=== PATIENT | female | born 1955 | race Caucasian/White ===

== ENCOUNTER → 2017-11-24 | Outpatient (CLI) | payer OTHER ==
[~2017-11-24] MED LIST: CETI10TA99 PO; CLON0.5T3 PO; FLNIN NAE; HYDR5SYP11 PO; SERT1TAB68 PO; ZOLP10TA6 PO
== END | disposition home or self-care (01) ==
LOC: C.PAPS 08:00
PROVIDERS: ATTEND Family Medicine
DX: Z12.4 Encounter for screening for malignant neoplasm of cervix (principal); Z78.0 Asymptomatic menopausal state

== ENCOUNTER 2024-01-25 05:01 | Observation (INO) ==
--- NOTE | 2024-01-04 14:39 | PAT Medication Instructions ---
Medication Instructions Date of Service January 04, 2024 Home Medications biotin 5 mg tablet 5 mg PO DAILY calcium carbonate 600 mg calcium (1,500 mg) tablet (Calcium) 750 mg PO DAILY cholecalciferol (vitamin D3) 25 mcg (1,000 unit) tablet (Vitamin D3) 25 mcg PO DAILY cyanocobalamin (vitamin B-12) 500 mcg tablet 500 mcg PO DAILY meloxicam 7.5 mg tablet 7.5 mg PO BID temazepam 7.5 mg capsule 7.5 mg PO HS PRN ASK your surgeon for instructions meloxicam 7.5 mg tablet 7.5 mg PO BID STOP taking 2 weeks before surgery (or as soon as possible if surgery is within 2 weeks) biotin 5 mg tablet 5 mg PO DAILY DO NOT take the morning of surgery calcium carbonate 600 mg calcium (1,500 mg) tablet (Calcium) 750 mg PO DAILY cholecalciferol (vitamin D3) 25 mcg (1,000 unit) tablet (Vitamin D3) 25 mcg PO DAILY cyanocobalamin (vitamin B-12) 500 mcg tablet 500 mcg PO DAILY Take evening before surgery temazepam 7.5 mg capsule 7.5 mg PO HS PRN(if needed) Other Notes NOTHING TO EAT OR DRINK AFTER MIDNIGHT. If you have any questions please call us at [phone] or [phone] or [phone] or [phone]
--- NOTE | 2024-01-05 09:36 | Anesthesiology Consultation ---
Date of Service January 05, 2024 Assessment & Plan (1) Encounter for pre-operative examination: - Infectious disease screening: Per assessment on 01/05/24: No known infectious disease contacts or current infectious disease symptoms. No noted recent Covid positive test result. - Outpatient joint pathway: Per OR booking comments, plan for outpatient joint program. Patient seen at [facility] 01/05/24. Patient is an acceptable candidate to proceed as planned outpatient joint pathway pending perioperative course. Surgeon's office arranging post-op home management. - Patient acceptable risk for surgery pending surgeon-ordered PCP preop evaluation (Dr. Graham/[facility], appt 01/15). Chart Review Chart Review: Patient seen in Pre Admission Testing Teaching & Discussion Pre-Anesthesia Teaching/Discussion Notes: Instructed NPO after midnight before surgery,except medications with 15 cc of water. Medication instructions provided according to the [facility] guidelines. History Surgery Operation Date: 01/25/24 10:15 Proposed Procedures p OP: Right Total Hip Replacement - Anterior Approach - Jesse Russell MD Height/Weight Height: 5 ft 4 in Weight: 51.1 kg Allergies Allergy/AdvReac Type Severity Reaction Status Date / Time No Known Allergies Allergy Verified 01/04/24 13:16 Medications Home Medications Medication Instructions Recorded Confirmed Last Taken biotin 5 mg tablet 5 mg PO DAILY 01/04/24 01/04/24 Unknown calcium carbonate 600 mg calcium 750 mg PO DAILY 01/04/24 01/04/24 Unknown (1,500 mg) tablet (Calcium) cholecalciferol (vitamin D3) 25 25 mcg PO DAILY 01/04/24 01/04/24 Unknown mcg (1,000 unit) tablet (Vitamin D3) cyanocobalamin (vitamin B-12) 500 500 mcg PO DAILY 01/04/24 01/04/24 Unknown mcg tablet meloxicam 7.5 mg tablet 7.5 mg PO BID 01/04/24 01/04/24 Unknown temazepam 7.5 mg capsule 7.5 mg PO HS PRN Sleep 01/04/24 01/04/24 Unknown Past Medical History Medical History Anxiety Brain bleed SAH/subdural hematoma 08/2019 (after trauma, fell off ladder in garage)- had surgery 10/2019 to repair the bleed, "complete resolution" on subsequent 2019 CTS per [facility] PCP records Cancer Skin cancer s/p excision (shoulder) Cardiac murmur Noted - per patient, no significant valvular disease noted on 2006 exercise stress echo No murmur noted during physical exams at PAT visit 01/05/24 + [facility] PCP visit 11/2023 History of COVID-19 2020 Insomnia Kidney stones Hx Osteoporosis Previously on Alendronate (not currently) Uterine anomaly Exercise / Class Metabolic Activity II 4-5 Yardwork/Stairs/Walk up hill (one FS: No CP, no SOB) Past Surgical History Surgical History History of colonoscopy History of cystoscopy History of Mohs micrographic surgery for skin cancer History of tonsillectomy History of tooth extraction Hx of brain surgery 10/2019 (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 Physical Exam Vital Signs BP 103/69 P 58 TEMP 98.3 SP02 98%RA RESP 16 Physical Full cervical extension range of motion. Full TMJ range of motion. TMD > 3.5 finger breaths Mallampati Score 1 Dentition: upper partial, + crowns/caps Lungs: clear throughout to auscultation Cardiac: regular rate and rhythm, no murmurs noted Spine: normal Carotid arteries: negative bruit Extremities: no LE edema Lab Results Anesthesia Preop Results Results Anesthesia Widget: WBC 6.13 K/ul (4.8-10.8) 01/05/24 Hgb 12.7 g/dl (12.0-16.0) 01/05/24 Hct 37.8 % (37.0-47.0) 01/05/24 Plt 194 K/uL (130-400) 01/05/24 Na 138 mmol/L (136-145) 01/05/24 K 4.2 mmol/L (3.5-5.1) 01/05/24 Cl 105 mmol/L (98-107) 01/05/24 CO2 29 mmol/L (21-32) 01/05/24 BUN 25 mg/dl (6-23) H 01/05/24 Creat 0.70 mg/dl (0.6-1.2) 01/05/24 Glucose Level 87 mg/dl (70-99(Fasting)) 01/05/24 PT 10.6 Seconds (9.0-12.0) 01/05/24 PTT 31 Seconds (21-31) 01/05/24 INR 1.0 (0.9-1.1) 01/05/24 Urine Color Dark Yellow 01/05/24 Urine Appearance Clear (Clear) 01/05/24 Urine pH 6.5 (4.5-7.5) 01/05/24 Urine Specific [place] 1.016 (1.000-1.030) 01/05/24 Urine Protein Negative (Negative) 01/05/24 Urine Glucose (UA) Negative (Negative) 01/05/24 Urine Ketones Negative (Negative) 01/05/24 Urine Blood Negative (Negative) 01/05/24 Urine Nitrite Negative (Negative) 01/05/24 Urine Bilirubin Negative (Negative) 01/05/24 Urine Urobilinogen Negative (Negative) 01/05/24 Urine Leukocyte Esterase Negative (Negative) 01/05/24 Blood Type O Positive 01/05/24 Antibody Screen NEGATIVE 01/05/24 Testing Electrocardiogram Date: 01/05/24 SB with sinus arrhythmia at 54bpm. "Otherwise normal ECG" No significant change compared to 04/25/2013 per wood setter comparison. Chest X-Ray Date: 01/05/24 FINDINGS: Cardiomediastinal and hilar silhouettes are unchanged. Hyperinflation with diaphragmatic flattening and mild chronic interstitial coarsening. No pneumothorax, pleural effusion or overt pulmonary edema. Degenerative changes of the shoulders and spine. Chronic T11 compression deformity. Age-indeterminate T8 compression deformity without retropulsion is new from prior. IMPRESSION: Hyperinflation without acute process of the chest. Age-indeterminate T8 compression deformity, new from 06/08/2021. *T8 compression defomity noted on CT chest 08/2021 (scanned into chart)*
--- NOTE | 2024-01-24 07:57 | History & Physical Report ---
Date of Service January 24, 2024 Assessment & Plan (1) Degenerative joint disease of right hip: Plan: Right total hip replacement direct anterior approach most likely same-day surgery History of Present Illness Chief Complaint: Right hip pain Primary Care Provider: Muriel Pagan MD Patient is a 68-year-old female with greater than 1 year history of right hip and groin pain. The pain has been worse over the past 3 months and is associated with marked decrease in range of motion decreased standing and walking tolerance. She requires a cane for all ambulation. She has failed nonsteroidal anti-inflammatories and has had a recent MRI which shows severe femoral head and acetabular edema with subchondral insufficiency fracture. She is admitted for elective hip replacement Allergies Allergy/AdvReac Type Severity Reaction Status Date / Time No Known Allergies Allergy Verified 01/04/24 13:16 Home Medications Medication Instructions Recorded Confirmed Type biotin 5 mg tablet 5 mg PO DAILY 01/04/24 01/04/24 History calcium carbonate 600 mg calcium 750 mg PO DAILY 01/04/24 01/04/24 History (1,500 mg) tablet (Calcium) cholecalciferol (vitamin D3) 25 25 mcg PO DAILY 01/04/24 01/04/24 History mcg (1,000 unit) tablet (Vitamin D3) cyanocobalamin (vitamin B-12) 500 500 mcg PO DAILY 01/04/24 01/04/24 History mcg tablet meloxicam 7.5 mg tablet 7.5 mg PO BID 01/04/24 01/04/24 History temazepam 7.5 mg capsule 7.5 mg PO HS PRN Sleep 01/04/24 01/04/24 History Past Med/Surg History Medical History Brain bleed SAH/subdural hematoma 08/2019 (after trauma, fell off ladder in garage)- had surgery 10/2019 to repair the bleed, "complete resolution" on subsequent 2019 CTS per [facility] PCP records Cardiac murmur Noted 1970s- per patient, no significant valvular disease noted on 2006 exercise stress echo No murmur noted during physical exams at PAT visit 01/05/24 + [facility] PCP visit 11/2023 History of COVID-2020 Insomnia Kidney stones Hx Uterine anomaly Osteoporosis Previously on Alendronate (not currently) Cancer Skin cancer s/p excision (shoulder) Anxiety Surgical History History of cystoscopy History of colonoscopy Hx of hernia repair History of tooth extraction History of tonsillectomy Hx of brain surgery 10/2019 (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) History of Mohs micrographic surgery for skin cancer Social History Smoking Status: Never smoker Second Hand Exposure: No; Do You Dip or Chew Tobacco: No; Tobacco Cessation Education Requested by Patient: No Hx Alcohol Use: Yes Hx Substance Use: No Preferred Language: Danish Communication Ability: Effective Reading Specialist Required: No Beliefs That Will Affect Care: None Current Living Situation: Family Other Information That Helps Us Care for You: No Feels Safe at Home: Yes Safety Concerns: Feels Safe At This Time Assistive Devices: Denture - Upper and Glasses Review of Systems Review of Systems: Hip and groin pain Physical Exam Physical Exam: Weight 50 kg BMI 19 General: Small statured thin woman who appears her stated age HEENT: NCAT, EOMI, PERRLA. Neck: Negative JVD or bruits Heart: Regular rate and rhythm no murmurs appreciated at this time. Lungs: Breath sounds clear and present in all parrish Abdomen: Flat soft nontender bowel sounds are positive Extremities the right hip is actually 78 mm longer than the left passive range of motion is 5 to 85 degrees flexion -15 degrees internal rotation all which reproduces groin pain. There is significant pelvic obliquity with scoliosis which is fixed. Neurological and vascular: Intact Results & Data Results & Data Vital Signs (Past 12 Hours) Blood pressure 104/60 Pulse 55
[2024-01-25] MEDS: LR 500ML BOLUS, THEN 15ML/HR IV SCH (05:56)
[2024-01-25] MEDS: LR 60ML/HR IV SCH (05:56)
[2024-01-25] MEDS: dexAMETHasone**PF** 10 MG/ML VIAL IV SCH (06:00)
[2024-01-25] MEDS: FAMOTIDINE 20 MG TAB PO SCH (06:01)
[2024-01-25] MEDS: ACETAMINOPHEN 500 MG TAB PO SCH (06:01)
[2024-01-25] MEDS: GABAPENTIN 300 MG CAP PO SCH (06:01)
[2024-01-25] MEDS: METOCLOPRAMIDE HCL 10 MG TABLET PO SCH (06:01)
[2024-01-25] MEDS: traMADol HCL 50 MG TABLET PO SCH (06:01)
[2024-01-25] MEDS: CeleBREX 200 MG CAP PO SCH (06:01)
[2024-01-25] MEDS ORDERED: MEPIVACAINE HCL 1.5% 30 ML VIAL ONE (06:18)
--- NOTE | 2024-01-25 06:26 | History & Physical Bridge Note ---
Date of Service January 25, 2024 History & Physical Bridge Note I have examined the patient, reviewed the History & Physical and in the interval since the performance of the History & Physical I have noted the following changes of clinical significance: no changes noted
[2024-01-25] MEDS ORDERED: fentaNYL citrate PF 100 MCG/2 ML VIAL IV PRN (06:39)
[2024-01-25] MEDS ORDERED: KETOROLAC 30 MG/ML VIAL IV PRN (06:39)
[2024-01-25] MEDS ORDERED: PROMETHAZINE HCL 6.25 MG in SODIUM CHLORIDE 0.9% 50 ML IV PRN (06:39)
[2024-01-25] MEDS ORDERED: ePHEDrine sulfate 50 MG/ML AMP IV PRN (06:39)
[2024-01-25] MEDS ORDERED: ONDANSETRON INJ 2 MG/ML 2 ML VIAL IV PRN (06:39)
[2024-01-25] MEDS ORDERED: ATROPINE SULFATE 0.1 MG/ML 10ML SYR IV PRN (06:39)
[2024-01-25] MEDS ORDERED: MIDAZOLAM HCL 1 MG/ML 2ML VIAL ONE ×2 (06:40)
[2024-01-25] MEDS: TRANEXAMIC ACID 1,000 MG **IV Pre-op IV SCH (06:55)
[2024-01-25] MEDS ORDERED: PROPOFOL IV EMULSION 10 MG/ML 20 ML VIAL IV ONE (06:55)
[2024-01-25] MEDS ORDERED: ROPIVACAINE 0.5% 5 MG/ML 30 ML VIAL ONE (07:04)
[2024-01-25] MEDS: ceFAZolin 2000MG 2,000 MG/15 ML SYR IV SCH (07:11)
[2024-01-25] MEDS ORDERED: ePHEDrine sulfate 50 MG/5 ML SYR ONE (07:34)
[2024-01-25] MEDS: ROPIV 0.5% 246mg, Ketorolac 30mg, EPINEPHrine 0.5mg in NSS INFIL SCH (07:39)
[2024-01-25] MEDS ORDERED: PHENYLEPHRINE 100MCG/ML 10ML SYR IV ONE (08:05)
[2024-01-25] MEDS: TRANEXAMIC ACID 1,000 MG **IV Intra-op IV SCH (08:38)
--- NOTE | 2024-01-25 08:45 | Post Operative Brief Note ---
Immediate Post Op Note v1 Date of Surgery January 25, 2024 Pre & Post Diagnosis Operation Date: 01/25/24 07:15 Pre-Op Diagnosis: Right Hip Osteoarthritis Post-Op Diagnosis: Right Hip Osteoarthritis I identified the patient and participated in the time-out.: Yes Procedure Operation Date: 01/25/24 07:15 Actual Procedures p Right Total Hip Replacement - Anterior Approach(Right) - Jesse Russell MD Surgeon Jesse Russell MD Surgical Scrub Technician None Estimated Blood Loss 150 Findings Consistent with Post-Op Diagnosis
[2024-01-25] MEDS ORDERED: ACETAMINOPHEN 500 MG TAB PO PRN (08:46)
[2024-01-25] MEDS ORDERED: KETOROLAC 30 MG/ML VIAL ONE (08:55)
[2024-01-25] MEDS ORDERED: D5W AND 1/2NSS + 20MEQ KCL 20 MEQ/1,000 ML BAG IV SCH (09:00)
[2024-01-25] MEDS ORDERED: ASPIRIN 81 MG ECTAB PO SCH (09:00)
--- NOTE | 2024-01-25 09:10 | Fluoroscopy Report ---
FL hip RT 1V CLINICAL HISTORY: RIGHT ANTERIOR HIP COMPARISON STUDY: None. FLUOROSCOPY TIME: 19 seconds FLUOROSCOPY IMAGES: 1 Ka,r: 1.7 mGy FINDINGS: Status post right total hip arthroplasty. The hardware is intact. No fracture or dislocatio n. IMPRESSION: Fluoroscopic assistance as above. ACT 112: Negative or not required by law. Electronically signed by: Jovon Roger M.D. 01/25/2024 9:08 AM
--- NOTE | 2024-01-25 10:04 | Anesthesiology Progress Note ---
Date of Service January 25, 2024 Anesthesia Post Procedure Vital Signs Vital Signs: Temp Pulse Pulse Resp BP Pulse Ox O2 Del Method 01/25/24 09:50 36.1 C L 62 14 90/56 L 100 Room Air 01/25/24 09:40 68 18 100/52 L 100 Room Air 01/25/24 09:30 73 16 90/53 L 100 Room Air 01/25/24 09:20 70 16 72/41 L 100 Room Air 01/25/24 09:10 73 18 86/55 L 100 Room Air 01/25/24 09:00 91 H 18 91/63 L 99 Room Air 01/25/24 08:55 36.1 C L 92 H 16 112/59 L 99 Room Air 01/25/24 05:31 36.5 C 64 18 134/67 96 Room Air Pain Intensity Right Hip: Pain Intensity: 0 Transfer of Care Handoff Completed per policy Notes Mental Status: alert / awake / arousable Patient Amnestic to Procedure: Yes Nausea / Vomiting: adequately controlled Pain: adequately controlled Airway Patency, RR, SpO2: stable & adequate BP & HR: stable & adequate Hydration State: stable & adequate Neuraxial Anesthesia: was administered and sensory block is resolving Anesthetic Complications: no major complications apparent
[2024-01-25] MEDS: traMADol HCL 50 MG TABLET PO PRN (12:03)
--- OUTSIDE RECORDS SUMMARY | 2024-01-25 13:50 | External Medical Summary | Summary of Care ---
Author Name Unknown Organization [facility] Address [address] [facility] [place] [address] Phone [phone] Care Team Providers Care Electronic Publishing Specialist Name Role Phone Elisa Graham MD Primary Care Provider [phone] Reason for Visit * Reason Comments Physical-Exam Encounter Details Date Type Department Care Team (Late st Contact Info) Description 01/06/2024 1:00 PM EST Office Visit Family Practice [facility] [address] [facility] [place] [address] Aziza Tolliver, PA-C [address] [place] [address] [place] [id number] ICC Transmission Mechanic's Physical* Allergies No known active allergiesdocumented as of this encounter (statuses as of 01/06/2024) Medications Medication Sig Dispensed Refills Start Date End Date Status Calcium Carb-Cholecalcife rol 600-800 MG-UNIT Oral Tablet Chewable Take 1 Tab by mouth daily. 0 Active Cyanocobalamin (VITAMIN B-12) 1000 MCG Tablet Take 1 Tablet by mouth in the morning. 0 Active Acetaminophen 500 MG Capsule 1 Capsule. 0 Active Melatonin ER 1 MG Oral Tablet Extended ReleaseIndication s:Insomnia, unspecified type daily1 tab at bedtime daily, if not improved may increase upto 5 mg daily 1 Tablet 0 01/02/2023 Active Triamcinolone Acetonide 55 MCG/ACT Nasal Aerosol (Nasacort Allergy 24HR)Indications: Other insomnia,Other chronic sinusitis,Primary snoring Administer 2 Sprays into each nostril at bedtime. 17 mL 5 04/13/2023 Active Additional Information Patient taking differently:2 [place] Each NostrilPRN, Rhinitis, Reported on 10/17/2023 Biotin 3 MG Oral Tablet Take by mouth. Pt unsure of dosage 0 Active Vitamin D-3 25 MCG (1000 UT) Oral Capsule Unsure dose--dec to 1 every other day from 10/17/2023 1 Capsule 0 10/17/2023 Active Meloxicam 7.5 MG Oral TabletIndications :Severe right groin pain,Arthritis of right hip Take 1 Tablet by mouth in the morning. With food, if not better take 2/day. 60 Tablet 0 12/08/2023 Active Temazepam 7.5 MG Oral Capsule (Restoril)Indicat ions:Other insomnia Take 1 Capsule by mouth at bedtime. 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 Age-related osteoporosis with current pathologic al fracture 09/17/2021 Lung nodule < 6cm on CT 09/17/2021 History of fall from ladder 09/05/2019 History of subarachnoid hemorrhage 09/05/2019 History of subdural hematoma 09/05/2019 Conductive hearing loss 09/05/2019 Hx of actinic keratosis 02/07/2019 Hx of nonmelanoma skin cancer 04/15/2011 Overview: BCC L anterior thigh 05/2015, R shoulder 05/213, recurrent from 2002, R cheek 2002 R thigh Insomnia 11/10/2009 Overview: ICD-10 update of inactive term Benign neoplasm of colon 06/22/2007 Overview: adenomatous tissue-repeat colonoscopy in 5 years documented as of this encounter (statuses as of 01/06/2024) Resolved Problems Problem Noted Date Diagnosed Date Resolved Date Compression fracture of T8 vertebra 09/17/2021 06/21/2022 Traumatic epidural hematoma 09/05/2019 03/17/2021 Hemotympanum 09/05/2019 03/17/2021 Multiple fractures of ribs, left side, init for clos fx 09/05/2019 03/17/2021 Adjustment disorder with depressed mood 11/10/2009 04/13/2023 JO-ANN (generalized anxiety disorder) 11/10/2009 04/13/2023 ADVANCE DIRECTIVE INFORMATION 11/23/2006 01/02/2023 Overview: Information given to patient. Hemorrhage of rectum and anus 05/07/2003 11/10/2009 Mitral valve disorder 06/29/19982022 documented as of this encounter (statuses as of 01/06/2024) Immunizations Name Administration Dates Next Due COVID-19 mRNA, LNP-s, No Pre serve, 2-Dose Series ([employer]) 09/10/2021,08/12/2021 DT - Diptheria/Tetanus (PEDS) 03/31/2003 HEP A - Hepatitis A (Adult > 18 yrs) 04/05/1998, 08/03/1997,08/18/1996 Hepatitis B, 20+ yrs 08/11/1990 Influenza, Whole Virus 09/20/2003,2001,10/07/2001,11/18,07/30/1995 MMR - Measles/Mumps/Rubella Vaccine 01/24/1985 Meningococcal Polysaccharide Vaccine ([employer]e) 09/20/2003,04/05/1998,12/28/1992 OPV - Polio Virus Vaccine (Oral) 12/28/1989,0310/1984 PPD 04/05/1998 Pneumococcal Conjugate Vacci ne, 20-valent ([id number]) 01/02/2023 Pneumococcal Polysaccharide PPV23 (Pneumovax) 12/15/2021 Rabies Vaccine (Rabavert) 10/27/2010,10/23/2010 Seasonal Influenza Virus Vac cine, Unspecified Formulation 08/12/2021,07/29/2020,10/06/2015,07/30 Seasonal Influenza, PF, 6 M & above, IM , (FluLaval or Fluzone) 07/06/2022,08/12/2021,07/29/2020 Seasonal Influenza, Quadriva lent, No Preserve, IM 08/09/2023 Seasonal Influenza, Split, I IV3, With Preserve, Inj 07/18/2019,08/16/2018,08/10/2017,10/06,07/17/2014,07/17/2013,07/25/2012 ,08/30/2009,08/30/1999 TD - Tetanus/Diptheria (ADULT) 10/23/2010 TDAP (age 10 and older)(Boostrix) 09/02/2019,10/2011 Typhoid Vaccine Oral (Vivotif) 09/20/2003,1997,07/30/1995 Yellow Fever Vaccine 10/30/1995,03/30/1989 Zoster Vaccine Recombinant (Shingrix) 01/01/2021 ,08/17/2020 documented as of this encounter Social History Tobacco Use Types Packs/Day Years Used Date Smoking Tobacco: Never Smokeless Tobacco: Never Tobacco Cessation:Counseling Given: Not Answered Alcohol Use Standard Drinks/Week Comments Yes 0 (1 standard drink = 0.6 oz pur e alcohol) 1-2 drinks / week PHQ-2 Answer Date Recorded PHQ Adult Total Score 0 10/17/2023 Hunger Vital Sign Answer Date Recorded Within the past 12 months, y ou worried that your food would run out before you got the money to buy more. Never true 06/21/20 22 Within the past 12 months, t he food you bought just didn't last and you didn't have money to get more. Never true 06/21/2022 Sex and Gender Information Value Date Recorded Sex Assigned at Female 03/24/2023 10:04 AM EDT Gender Identity Female 03/24/2023 10:04 AM EDT Sexual Orientation Not on file Job Start Date Occupation Industry Not on file Not on file Not on file documented as of this encounter Last Filed Vital Signs Vital Sign Reading Time Taken Comments Blood Pressure 102/64 01/06/2024 1:06 PM EST Pulse 72 01/06/2024 1:06 PM EST Temperature 36.4 C (97.6 F) 01/06/2024 1:06 PM ES T Respiratory Rate 16 01/06/2024 1:06 PM EST Oxygen Saturation - - Inhaled Oxygen Concentration - - Weight 51.4 kg (113 lb 6 oz) 01/06/2024 1:06 PM EST Height 162.6 cm (5' 4") 01/06/2024 1:06 PM EST Body Mass Index 19.46 01/06/2024 1:06 PM EST documented in this encounter Functional Status Functional Status Response Date of Assess ment Are you deaf or do you have serious difficulty h earing? No 09/02/2019 Are you blind or do you have serious difficulty seeing, even when wearing glasses? No 09/02/2019 Do you have serious difficul ty walking or climbing stairs? (5 years old or older) No 09/02/2019 Do you have difficulty dress ing or bathing? (5 years old or older) No 09/02/2019 Because of a physical, menta l, or emotional condition, do you have difficulty doing errands alone such as visiting a doctor s office or shopping? (15 years old or older) No 09/02/20 19 Cognitive Status Response Date of Assessm ent Because of a physical, menta l, or emotional condition, do you have serious difficulty concentrating, remembering, or making decisions? (5 years old or older) No 09/02/2019 documented as of this encounter Progress Notes * Aziza Tolliver PA-C - 01/06/2024 1:13 PM EST Nursing Notes: Conchis Bryant LPN 01/06/24 1311 Sign at exiting of workspace CDL Pt here today for CDL PE. Pt has no issues at this time. Review of patient's allergies indicates: No Known Allergies Current Outpatient Medications Medication Sig Dispense Refill Meloxicam 7.5 MG Oral Tablet Take 1 Tablet by mouth in the morning. With food, if not better take 2/day. 60 Tablet 0 Calcium Carb-Cholecalciferol 600-800 MG-UNIT Oral Tablet Chewable Take 1 Tab by mouth daily. Cyanocobalamin (VITAMIN B-12) 1000 MCG Tablet Take 1 Tablet by mouth in the morning. Acetaminophen 500 MG Capsule 1 Capsule. Melatonin ER 1 MG Oral Tablet Extended Release daily1 tab at bedtime daily, if not improved may increase upto 5 mg daily 1 Tablet 0 Triamcinolone Acetonide 55 MCG/ACT Nasal Aerosol (Nasacort Allergy 24HR) Administer 2 Sprays into each nostril at bedtime. (Patient taking differently: Administer 2 Sprays into each nostril as neededfor Rhinitis.) 17 mL 5 Biotin 3 MG Oral Tablet Take by mouth. Pt unsure of dosage Vitamin D-3 25 MCG (1000 UT) Oral Capsule Unsure dose--dec to 1 every other day from 10/17/2023 1 Capsule 0 Temazepam 7.5 MG Oral Capsule (Restoril) Take 1 Capsule by mouth at bedtime. 30 Capsule 0 No current facility-administered medications for this visit. Past Medical History: Diagnosis Date Abnormal Papanicolaou smear of cervix and cervical HPV 10/30/1992 Abnormal PAP Arthritis Benign neoplasm of colon 06/22/2007 adenomatous tissue-repeat colonoscopy in 5 years Benign neoplasm of colon 03/06/2013 COLONOSCOPY FLEXIBLE PROXIMAL DIAGNOSTIC performed by Alka Roldan MD at [facility], hyperplastic polyps repeat colonoscopy in 5 years Calculus of kidney Renal Calculus Mitral valve disorder Mitral Valve Prolapse, no SBE Multiple fractures of ribs, left side, init for clos fx 09/05/2019 Pain in limb SDH (subdural hematoma) ([facility]) 2019 Social History Socioeconomic History Marital status: Spouse name: Maddy Number of children: 2 Years of education: Not on file Highest education level: Not on file Occupational History Occupation: [employer] Comment: HRI Occupation: [employer] Employer: [employer] Tobacco Use Smoking status: Never Smokeless tobacco: Never Vaping Use Vaping Use: Never used Substance and Sexual Activity Alcohol use: Yes Comment: 1-2 drinks / week Drug use: No Sexual activity: Yes Partners: Male control/protection: Surgical Comment: vasectomy Other Topics Concern Service Not Asked Blood Transfusions Not Asked Caffeine Concern Not Asked Occupational Exposure Not Asked Hobby Hazards Not Asked Sleep Concern Not Asked Stress Concern Not Asked Weight Concern Not Asked Special Diet Yes Comment: ca discussed Back Care Not Asked Exercise Yes Comment: walks occ Bike Helmet Not Asked Seat Belt Not Asked Self-Exams No Comment: breast Social History 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 rate 16, height 1.626 m (5' 4"), weight 51.4 kg (113 lb 6 oz), last menstrual period 06/09/2005. ICC Physical Examination [place] [employer] Date of exam: January 06, 2024 Certification: Recertification Transmission Mechanic's Name: Caroline Dwyer [address]: [address] [place] [id number] SSN: [id number] Date of : 1955 Age: [age] year old Sex: female Phone: Home/Work: There are no phone numbers on file. Transmission Mechanic License No: [id number] License class-A,B,C,D, other: State of issue: [place] Health History: Any illness or injury in the last 5 years: no Head/Brain injuries, disorders or illnesses: no Seizures, epilepsy: no If yes- Medication: na Eye disorders or impaired vision (except corrective lenses): no Ear disorders, loss of hearing or balance: no Heart disease or heart attack; other cardiovascular condition: no If yes- Medication: na Heart surgery (valve replacement/bypass, angioplasty, pacemaker): no High blood pressure: no If yes-Medication: laya Shortness of breath: no Lung disease, emphysema, asthma, chronic bronchitis: no Kidney disease, dialysis: no Liver disease: no Digestive problems: no Diabetes or elevated blood sugar controlled by: no Diet/pills/insulin: na Nervous or psychiatric disorders, e.g., servere depression: no If yes- Medication: na Loss of,or altered consciousness: no Fainting, dizziness: no Sleep disorders, pauses in breathing while asleep, daytime sleepiness, loud snoring: no Stroke or paralysis: no Missing or impaired hand, arm, foot, leg, finger, toe: no Spinal injury or disease: no Chronic low back pain: no Regular, frequent alcohol use: no Narcotic or habit forming drug use: no For any YES answer, indicate onset date, diagnosis, treating physicians name and address, and any curret limitations: List all medications (including over the counter medications) used regularly or recently. na General appearance and development: Vision: acuity, color vision, field of vision as noted above Evidence of disease or injury: Right: no Right: 20/30 Left: no Left: 20/30 Both: no Both: 20/30 Corrected: Horizontal Field Of Vision: Right eye: 20/30 Right eye: 90 Left eye: 20/30 Left eye: 90 Applicant can recognize and distinguish amount traffic control signals and devices showing standardred, green and ziggy: yes Applicant meets visual acuity requirement only when wearing: Corrective lenses: yes Monocular Vision: no Hearing: Audiometric screen as noted above. Right: Normal Left: Normal Evidence of disease or injury: no BP 102/64 | Pulse 72 | Temp 36.4 C (97.6 F) (Tympanic) | Resp 16 | Ht 1.626 m (5' 4") | Wt 51.4kg (113 lb 6 oz) | LMP 06/09/2005 | BMI 19.46 kg/m | BSA 1.52 m General appearance: normal Eyes: Normal Ears: Normal Mouth/Throat: Normal Thorax: Heart: Normal If organic disease is present, is it fully compensated? YES Blood Pressure: 102/64 Pulse: 72 Lungs: Normal Abdomen: Scars: no Abnormal masses: no Tenderness: no Hernia: no Is truss worn? no Vascular disease: no Gastrointestinal: Ulceration or other diseases: no Genito-urinary: Scars: no Urethral discharge: no Reflexes: Rhomberg: Normal Pupillary: Normal Light: Right: Normal Left: Normal Accomodation: Right: Normal Left: Normal Knee Jerks: Right: normal Left: normal Remarks: Extremities: Upper: Normal Lower: Normal Spine: Normal Laboratory and other special findings: Urine: Specific Paradise: 1.020 Albumin: Normal Sugar: Normal Other laboratory data: Serology: Radiologic data: Electrocardiograph: Controlled substances testing: Controlled substances test NOT performed General comments: normal PE Meets standards in 49 CFR 391.41; qualifies for 2 year certificate: YES Does not meet standards: N/A Meets standards, but periodic monitoring required due to: N/A Transmission Mechanic qualified only for: 3, 6, l year, other: months allowed/n/a: na Temporarily disqualified due to (condition or medication): N/A Return to phlebotomist medical lab assistant's office for follow up on: not applicable Wearing corrective lenses: yes Wearing hearing aid: no Accompanied by a = waiver/exemption. Transmission Mechanic must present exemption at time of certification. N/A Skill Performance Evaluation (SPE) Certificate. N/A Driving within an exempt intracity zone (See 49 CFR 391.62): N/A Qualified by operation of 49 CFR 391.64: N/A Signature of medical provider Name of phlebotomist medical lab assistant: Aziza Tolliver PA-C Address of phlebotomist medical lab assistant: [address] [place] [address] greige goods examiner's Certificate to be completed only if marine engine driver is found qualified. documented in this encounter Nursing Notes * Conchis Bryant LPN - 01/06/2024 1:02 PM EST CDL documented in this encounter Plan of Treatment Upcoming Encounters Date Type Department Care Team (Late st Contact Info) Description 01/16/2024 11:20 AM EDT Office Visit General Internal Medicine [facility] [address] [facility] [place] [address] Elisa Graham MD [address] [place] [address] [place] [address] 01/22/2024 1:30 PM EDT Office Visit Dermatology [facility] [address] [facility] [place] [address] Arias Dee MD [address] [place] [address], [place] [address] 04/11/2024 9:20 AM EDT Office Visit General Internal Medicine [facility] [address] [facility] [place] [address] Elisa Graham MD [address] [place] [address], [place] [address] Scheduled Procedures Name Priority Associated Diagnoses Date/Ti me COLONOSCOPY FLEXIBLE PROXIMA L DIAGNOSTIC Recall Screening for colon cancer Health Maintenance Due Date Last Done Comments Hepatitis B (2 of 3 - 19+ 3-dose series) 09/08/1990 08/11/1990 Cologuard 2001 Sigmoidoscopy 05/07/2008 05/07/2003 Fecal Occult Blood Test 08/20/2021 08/20/2020, 04/12 COVID-19 Vaccine ( season) 2023 09/10/2021, 08/12/2021 DXA Scan 08/26/2023 08/26/2021 Depression Screening 10/17/2024 10/17/2023 Mammogram 11/06/2024 11/06/2023, 02/2023, 11/03/2022, Additional history exists Lipid Panel 08/10/2026 08/10/2021, 08/30, 08/11/2020, Additional history exists DTaP,Tdap,and Td Vaccines (5 - Td or Tdap) 09/02/2029 09/02/2019, 10/30/2011, 10/23/2010, Additional history exists Colonoscopy 10/02/2033 10/02/2023, 01/2023, 07/06/2018, Additional history exists Colorectal Cancer Screening 10/02/2033 MENINGOCOCCAL (MENACTRA/MENVEO) Aged Out 09/20/2003, 04/05/1998, 12/28/1992 No longer eligible based on patient's age to complete this topic VITAMIN D LEVEL ONCE IN A LIFETIME-USE SMARTSET# [id number] Completed 08/21/2014 Pap Smear Discontinued 09/15/2020, 07/31, 08/23/2011, Additional history exists Zoster Vaccines Completed 01/01/2021, 08/17/2020 Pneumococcal Vaccine: 65+ Years Completed 01/02/2023, 12/15/2021 Influenza Vaccine (FLU shot) Completed 08/09/2023, 07/06/2022, 08/12/2021, Additional history exists COLONOSCOPY-EVERY 5 YRS AGES 18-100 Discontinued 10/02/2023, 10/02/2023, 07/06/2018, Additional history exists GARDASIL-HPV IMMUNIZATION SERIES Aged Out No longer eligible based on patient's age to complete this topic documented as of this encounter Medical Devices Implanted Type Area Business Objects Consultant Device Identifier Shelf Expiration Date Model / Serial / Lot [employer], Embosphere, Microspheres, [id number] Implanted:Qty: 1 on 11/05/2019 by Israel Alvares [place] [facility] [place]: [employer] 11/29/2021 [id number] / [id number] / [id number] Plug Mesh Small Hernia - [id number] Implanted:Qty: 1 on 01/31/2023 by Jabari Salazar MD at [facility] Right: Groin CR BARD : DAVOL 09/26/2023 [id number] / / [id number] documented as of this encounter Procedures Procedure Name Priority Date/Time Associated Diagnosis Comments URINALYSIS, POINT OF CARE (ENTER/EDIT) Routine 01/06/2024 ICC Transmission Mechanic's Physical VISUAL ACUITY SCREEN, NURSE/TECH Routine 01/06/2024 ICC Transmission Mechanic's Physical HEARING SCREEN Routine 01/06/2024 ICC Transmission Mechanic's Physical documented in this encounter Results * VISUAL ACUITY SCREEN, NURSE/TECH (01/06/2024) 01/06/2024 Narrative Conchis Bryant LPN - 01/06/2024 1:49 PM EST 20/30 right left and both with glasses Passed color test Aziza Tolliver PA-C MEDICINE * HEARING SCREEN (01/06/2024) 01/06/2024 Narrative Conchis Bryant LPN - 01/06/2024 1:49 PM EST No response at 500 1000 and 2000 is at 25 dbls Aziza Tolliver PA-C MEDICINE * URINALYSIS, POINT OF CARE (ENTER/EDIT) (01/06/2024) Color, Urine Yellow Yellow or Light Yellow Clarity, Urine Clear Clear Glucose, Urine Negative Negative mg/dL Bilirubin, Urine Negative Negative Ketone, Urine Negative Negative mg/dL Specific [place], Urine 1.020 1.003 - 1.030 Blood, Urine Negative Negative pH, Urine 5.0 5.0 - 7.5 units Protein, Urine Negative Negative mg/dL Urobilinogen, Urine 0.2 0.2 - 1.0 mg/dL Nitrite, Urine Negative Negative Esterase, Urine Negative Negative Urine 01/06/2024 Aziza Tolliver PA-C LAB POINT OF CARE TEST ENTER/EDIT ORDERABLES documented in this encounter Visit Diagnoses Diagnosis ICC Transmission Mechanic's Physical- Primary Unspecified general medical examination documented in this encounter Advance Directives Latest Code Status on File Code Status Date Activated Date Inactivated Comments Full Code 01/31/2023 9:56 AM 01/31/2023 4:43 PM This or pa reflects the patients wishes and were consensually agreed upon. Question Answer Comments Discussion of Advance Directives occurred with: Patient Code Status History Code Status Date Activated Date Inactivated Comments Full Code 11/05/2019 2:15 PM 11/05/2019 10:00 PM This o rder reflects the patients wishes and were consensually agreed upon. Question Answer Comments Discussion of Advance Directives occurred with: Not Discussed Full Code 09/02/2019 5:08 PM 09/05/2019 9:04 PM This order reflects the patients wishes and were consensually agreed upon. Care Teams Electronic Publishing Specialist Relationship Specialty Start Date End Date Elisa Graham MD [address] [place] [address] PCP - General Internal Medicine 01/06/23 documented as of this encounter
--- OUTSIDE RECORDS SUMMARY | 2024-01-25 13:50 | External Medical Summary | Summary of Care ---
Author Name Unknown Organization [facility] Address [address] [facility] [place] [address] Phone [phone] Care Team Providers Care Card Writer Hand Name Role Phone Elisa Graham MD Primary Care Provider [phone] Encounter Details Date Type Department Care Team (Late st Contact Info) Description 01/05/2024 Result Scan Unspecified Department <No scans attached> Allergies No known active allergiesdocumented as of this encounter (statuses as of 01/09/2024) Medications Medication Sig Dispensed Refills Start Date End Date Status Calcium Carb-Cholecalcifero l 600-800 MG-UNIT Oral Tablet Chewable Take 1 Tab by mouth daily. 0 Active Cyanocobalamin (VITAMIN B-12) 1000 MCG Tablet Take 1 Tablet by mouth in the morning. 0 Active Acetaminophen 500 MG Capsule 1 Capsule. 0 Active Melatonin ER 1 MG Oral Tablet Extended ReleaseIndications: Insomnia, unspecified type daily1 tab at bedtime daily, if not improved may increase upto 5 mg daily 1 Tablet 0 01/02/2023 Active Triamcinolone Acetonide 55 MCG/ACT Nasal Aerosol (Nasacort Allergy 24HR)Indications:Ot her insomnia,Other chronic sinusitis,Primary snoring Administer 2 Sprays into each nostril at bedtime. 17 mL 5 04/13/2023 Active Additional Information Patient taking differently:2 [place] Each NostrilPRN, Rhinitis, Reported on 10/17/2023 Biotin 3 MG Oral Tablet Take by mouth. Pt unsure of dosage 0 Active Vitamin D-3 25 MCG (1000 UT) Oral Capsule Unsure dose--dec to 1 every other day from 10/17/2023 1 Capsule 0 10/17/2023 Active Meloxicam 7.5 MG Oral TabletIndications:S evere right groin pain,Arthritis of right hip Take 1 Tablet by mouth in the morning. With food, if not better take 2/day. 60 Tablet 0 12/08/2023 Active Temazepam 7.5 MG Oral Capsule (Restoril)Indicatio ns:Other insomnia Take 1 Capsule by mouth at bedtime. 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 Overview: adenomatous tissue-repeat colonoscopy in 5 years documented as of this encounter (statuses as of 01/09/2024) Resolved Problems Problem Noted Date Diagnosed Date [...] as of this encounter (statuses as of 01/09/2024) Immunizations Name Administration Dates Next Due COVID-19 mRNA, LNP-s, No Pre serve, 2-Dose Series (Porch) 09/10/2021,08/12/2021 HEP A - Hepatitis A (Adult > 18 yrs) 04/05/1998, 08/03/1997,08/18/1996 Hepatitis B, 20+ yrs 08/11/1990 Influenza, Whole Virus 09/20/2003,2001,10/07/2001,11/18,07/30/1995 MMR - Measles/Mumps/Rubella Vaccine 01/24/1985 Meningococcal Polysaccharide Vaccine (Menommune) 09/20/2003,04/05/1998,12/28/1992 OPV - Polio Virus Vaccine (Oral) 12/28/1989,10/1984 PPD 04/05/1998 Pneumococcal Conjugate Vacci ne, 20-valent ([id number]) 01/02/2023 Pneumococcal Polysaccharide PPV23 (Pneumovax) 12/15/2021 Rabies Vaccine (Rabavert) 10/27/2010,10/23/2010 Seasonal Influenza Virus Vac cine, Unspecified Formulation 08/12/2021,07/29/2020,10/06/2015,07/30 Seasonal Influenza, PF, 6 M & above, IM , (FluLaval or Fluzone) 07/06/2022,08/12/2021,07/29/2020 Seasonal Influenza, Quadriva lent, No Preserve, IM 08/09/2023 Seasonal Influenza, Split, I IV3, With Preserve, Inj 07/18/2019,08/16/2018,08/10/2017,10/06,07/17/2014,07/17/2013,07/25/2012 ,08/30/2009 TD - Tetanus/Diptheria (ADULT) 10/23/2010 TDAP (age 10 and older)(Boostrix) 09/02/2019,10/2011 Typhoid Vaccine Oral (Vivotif) 09/20/2003,1997,07/30/1995 Yellow Fever Vaccine 10/30/1995,03/30/1989 Zoster Vaccine Recombinant (Shingrix) 01/01/2021 ,08/17/2020 documented as of this encounter Social History Tobacco Use Types Packs/Day Years Used Date Smoking Tobacco: Never Smokeless Tobacco: Never Alcohol Use Standard Drinks/Week Comments Yes 0 (1 standard drink = 0.6 oz pur e alcohol) 1-2 drinks / week PHQ-2 Answer Date Recorded PHQ Adult Total Score 0 10/17/2023 Hunger Vital Sign Answer Date Recorded Within the past 12 months, y ou worried that your food would run out before you got the money to buy more. Never true 06/21/20 Within the past 12 months, t he [...] on file documented as of this encounter Functional Status Functional Status Response [...] (15 years old or older) No 09/02/20 Cognitive Status Response Date of Assessm ent Because of a physical, menta l, or emotional condition, do you have serious difficulty concentrating, remembering, or making decisions? (5 years old or older) No 09/02/2019 documented as of this encounter Plan of Treatment Upcoming Encounters Date Type Department Care Team (Late st Contact Info) Description 01/16/2024 11:20 AM EDT Office Visit General Internal Medicine [facility] [address] [place] [address] Elisa Graham MD [address] [place] [address] 01/22/2024 1:30 PM EDT Office Visit Dermatology [facility] [address] [facility] [place] [address] Arias Dee MD [address] [place] [address] 04/11/2024 9:20 AM EDT Office Visit General Internal Medicine [facility] [address] [facility] [place] [address] Elisa Graham MD [address] [place] [address] Scheduled Procedures Name Priority Associated Diagnoses Date/Ti [...] D LEVEL ONCE IN A LIFETIME-USE SMARTSET# 53325 Completed 08/21/2014 Pap Smear Discontinued 09/15/2020, 07/31, [...] this encounter Medical Devices Implanted Type Area Acute Care Clinical Nurse Specialist Device Identifier Shelf Expiration Date Model / Serial / Lot [employer], Embosphere, Microspheres, 300-500 Implanted:Qty: 1 on 11/05/2019 by Israel Alvares [place] [facility] [place] Head [employer] 11/29/2021 [id number] / [id number] / [id number] Plug Mesh Small Hernia - [id number] Implanted:Qty: 1 on 01/31/2023 by Jabari Salazar MD at OR [facility] Right: Groin CR BARD : DAVOL 09/26/2023 [id number] / / [id number] documented as of this encounter Procedures Procedure Name Priority Date/Time Associated Diagnosis Comments EKG SCANNED RESULT 01/05/2024 RADIOLOGY SCANNED RESULT 01/05/2024 documented in this encounter Results * RADIOLOGY SCANNED RESULT (01/05/2024) 01/05/2024 No Physician Data Unknown DIAGNOSTIC RAD IOLOGY SERVICES * EKG SCANNED RESULT (01/05/2024) 01/05/2024 No Physician Data Unknown EKG documented in this encounter Advance Directives Latest [...] and were consensually agreed upon. Care Teams Card Writer Hand Relationship Specialty Start Date End Date Elisa Graham MD [address] [place] [address] PCP - General Internal Medicine 01/06/23 documented as of this encounter
--- OUTSIDE RECORDS SUMMARY | 2024-01-25 13:50 | External Medical Summary | Summary of Care ---
Author Name Unknown Organization [facility] Address [address] [facility] [place] [address] Phone [phone] Care Team Providers Care Stapler Hand Name Role Phone Elisa Graham MD Primary Care Provider [phone] Reason for Visit * Reason Comments Physical-Exam Encounter Details Date Type Department Care Team (Late st Contact Info) Description 01/06/2024 1:00 PM EST Office Visit Family Practice [facility] [address] [facility] [place] [address] Aziza Tolliver, PA-C [address] [place] [address] [place] [address] 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's Physical* Allergies No known active allergiesdocumented as [...] 04/13/2023 Active Additional Information Patient taking differently:2 [place] Each NostrilPRN, Rhinitis, Reported on 10/17/2023 Biotin [...] mRNA, LNP-s, No Pre serve, 2-Dose Series (2080 Media) 09/10/2021,08/12/2021 DT - Diptheria/Tetanus (PEDS) 03/31/2003 HEP A - Hepatitis A (Adult > 18 yrs) 04/05/1998, 08/03/1997,08/18/1996 Hepatitis B, 20+ yrs 08/11/1990 Influenza, Whole Virus 09/20/2003,2001,10/07/2001,11/18,07/30/1995 MMR - Measles/Mumps/Rubella Vaccine 01/24/1985 Meningococcal Polysaccharide Vaccine (Menommune) 09/20/2003,04/05/1998,12/28/1992 OPV - Polio Virus Vaccine (Oral) 12/28/1989,0310/1984 PPD 04/05/1998 Pneumococcal Conjugate Vacci ne, 20-valent (Seehqys24) 01/02/2023 Pneumococcal Polysaccharide PPV23 (Pneumovax) 12/15/2021 Rabies [...] performed by Alka Roldan MD at [facility], hyperplastic polyps repeat colonoscopy in 5 years Calculus of kidney Renal Calculus Mitral valve disorder Mitral Valve Prolapse, no SBE Multiple fractures of ribs, left side, init for clos fx 09/05/2019 Pain in limb SDH (subdural hematoma) ([facility]) 2019 Social History Socioeconomic History Marital status: Spouse name: Maddy Number of children: 2 Years of education: Not on file Highest education level: Not on file Occupational History Occupation: [employer] Comment: [employer] Occupation: [employer] Employer: [place] [employer] 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 License No: [id number] License class-A,B,C,D, other: State of issue: [place] [...] Laboratory and other special findings: Urine: Specific [place]: 1.020 Albumin: Normal Sugar: Normal Other laboratory data: Serology: Radiologic data: Electrocardiograph: Controlled substances testing: Controlled substances test NOT performed General comments: normal PE Meets standards in 49 CFR 391.41; qualifies for 2 year certificate: YES Does not meet standards: N/A Meets standards, but periodic monitoring required due to: N/A 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 qualified only for: 3, 6, l year, other: months allowed/n/a: na Temporarily disqualified due to (condition or medication): N/A Return to quality engineer medical device's office for follow up on: not applicable Wearing corrective lenses: yes Wearing hearing aid: no Accompanied by a = waiver/exemption. 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 must present exemption at time of certification. N/A Skill Performance Evaluation (SPE) Certificate. N/A Driving within an exempt intracity zone (See 49 CFR 391.62): N/A Qualified by operation of 49 CFR 391.64: N/A Signature of medical provider Name of quality engineer medical device: Aziza Tolliver PA-C Address of quality engineer medical device: [address] [place] [address] driver's license examiner's Certificate to be completed only if pick up and delivery driver is found qualified. documented in this encounter Nursing Notes * Conchis Bryant LPN - 01/06/2024 1:02 PM EST CDL documented in this encounter Plan of Treatment Upcoming Encounters Date Type Department Care Team (Late st Contact Info) Description 01/16/2024 11:20 AM EDT Office Visit General Internal Medicine [facility] [address] [facility] [place] [address] Elisa Graham MD [address] [place] [address] [place] [address] 01/22/2024 1:30 PM EDT Office Visit Dermatology [facility] [address] [facility] [place] [address] Arias Dee MD [address] [place] [address], [place] [address] 04/11/2024 9:20 AM EDT Office Visit General Internal Medicine [facility] [address] [facility] [place] [address] Elisa Graham MD [address] [place] [address], [place] [address] Scheduled Procedures Name Priority Associated Diagnoses Date/Ti [...] D LEVEL ONCE IN A LIFETIME-USE SMARTSET# 60198 Completed 08/21/2014 Pap Smear Discontinued 09/15/2020, 07/31, [...] this encounter Medical Devices Implanted Type Area Brick Catcher Device Identifier Shelf Expiration Date Model / Serial / Lot [employer], Embosphere, Microspheres, 300-500 Implanted:Qty: 1 on 11/05/2019 by Israel Alvares MD at [place] [facility] [place] N/A: Head [employer] 11/29/2021 [id number] / [id number] / [id number] Plug Mesh Small Hernia - [id number] Implanted:Qty: 1 on 01/31/2023 by Jabari Salazar MD at OR [facility] Right: Groin CR BARD : DAVOL 09/26/2023 [id number] / / [id number] documented as of this encounter Procedures Procedure Name Priority Date/Time Associated Diagnosis Comments URINALYSIS, POINT OF CARE (ENTER/EDIT) Routine 01/06/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's Physical VISUAL ACUITY SCREEN, NURSE/TECH Routine 01/06/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's Physical HEARING SCREEN Routine 01/06/[address] ICC 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's Physical documented in this encounter Results * [...] Negative Ketone, Urine Negative Negative mg/dL Specific [place], Urine 1.020 1.003 - 1.030 Blood, Urine Negative Negative pH, Urine 5.0 5.0 - 7.5 units Protein, Urine Negative Negative mg/dL Urobilinogen, Urine 0.2 0.2 - 1.0 mg/dL Nitrite, Urine Negative Negative Esterase, Urine Negative Negative Urine 01/06/2024 Aziza Tolliver PA-C LAB POINT OF CARE TEST ENTER/EDIT ORDERABLES documented in this encounter Visit Diagnoses Diagnosis ICC 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's Physical- Primary Unspecified general medical examination documented [...] and were consensually agreed upon. Care Teams Stapler Hand Relationship Specialty Start Date End Date Elisa Graham MD [address] [place] [address] PCP - General Internal Medicine 01/06/23 documented as of this encounter
--- OUTSIDE RECORDS SUMMARY | 2024-01-25 13:50 | External Medical Summary | Summary of Care ---
Author Name Unknown Organization [facility] Address [address] [facility] [address] Phone [phone] Care Team Providers Care Heavy Truck Technician Name Role Phone Elisa Graham MD Primary Care Provider [phone] Reason for Visit * Reason Comments Follow Up 3 month follow up - pt denied any new concerns Encounter Details Date Type Department Care Team (Late st Contact Info) Description 01/16/2024 11:20 AM EDT Office Visit General Internal Medicine [facility] [address] [facility] [address] Elisa Graham MD [address] [facility] [place] [address] Preoperative general physical examination*; Arthritis of right hip; History of subarachnoid hemorrhage; History of fall from ladder; Senile osteoporosis; Bilateral hip joint arthritis; History of colon polyps; History of vertebral compression fracture; Primary snoring; Other chronic sinusitis; Hyperinflation of lungs Allergies No known active allergiesdocumented as of this encounter (statuses as of 01/16/2024) Medications Medication Sig Dispensed Refills Start Date End Date Status Calcium Carb-Cholecalcife rol 600-800 MG-UNIT Oral Tablet Chewable Take 1 Tab by mouth daily. 0 Active Acetaminophen 500 MG Capsule 1 [...] 04/13/2023 Active Additional Information Patient taking differently:2 [place] Each NostrilPRN, Rhinitis, Reported on 10/17/2023 Biotin [...] at bedtime. 30 Capsule 0 12/22/2023 Active Cyanocobalamin (VITAMIN B-12) 1000 MCG Tablet Take 1 Tablet by mouth in the morning. 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 Age-related osteoporosis wit hout current pathological fracture 09/17/2021 Lung nodule < 6cm on [...] as of this encounter (statuses as of 01/16/2024) Resolved Problems Problem Noted Date Diagnosed Date [...] as of this encounter (statuses as of 01/16/2024) Immunizations Name Administration Dates Next Due COVID-19 mRNA, LNP-s, No Pre serve, 2-Dose Series (IPextreme) 09/10/2021,08/12/2021 HEP A - Hepatitis A (Adult > 18 yrs) 04/05/1998, 08/03/1997,08/18/1996 Hepatitis B, 20+ yrs 08/11/1990 Influenza, Whole Virus 09/20/2003,2001,10/07/2001,11/18,07/30/1995 MMR - Measles/Mumps/Rubella Vaccine 01/24/1985 Meningococcal Polysaccharide Vaccine (Menommune) 09/20/2003,04/05/1998,12/28/1992 OPV - Polio Virus Vaccine (Oral) 12/28/1989,10/1984 PPD 04/05/1998 Pneumococcal Conjugate Vacci ne, 20-valent ([id number]) 01/02/2023 Pneumococcal Polysaccharide PPV23 (Pneumovax) 12/15/2021 Rabies [...] Sign Reading Time Taken Comments Blood Pressure 104/60 01/16/2024 11:24 AM EDT Pulse 55 01/16/2024 11:24 AM EDT Temperature 36.3 C (97.4 F) 01/16/2024 11:24 AM E DT Respiratory Rate - - Oxygen Saturation 99% 01/16/2024 11:24 AM EDT Inhaled Oxygen Concentration - - Weight 50.4 kg (111 lb 3.2 oz) 01/16/2024 11:24 AM EDT Height 162.6 cm (5' 4") 01/16/2024 11:24 AM EDT Body Mass Index 19.09 01/16/2024 11:24 AM EDT documented in this encounter Functional Status Functional [...] as of this encounter Progress Notes * Elisa Graham MD - 01/16/2024 11:41 AM EDT SUBJECTIVE: Caroline Dwyer is a 67 year old female. Chief Complaint Patient presents with Follow Up 3 month follow up - pt denied any new concerns HPI: Patient presents today for 3 mth f/u and preop Saw , is having Rt THR 01/25/24. 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 Denies any injuries or falls. History of left knee ACL tear when she was in the in 2001, was told she had mild arthritis in her left hip when last seen by Ortho in [place] in 2020. She does not recall having an x-ray of the right hip. Pain is constant, gets intermittent sharp pains when she walks or bears weight. Better when she is laying down. Does not like to take many pain medications, took Tylenol 1 tablet every 6 hours for 2 days which did not seem to help, has not tried ibuprofen. She had called the [facility], has appointment in [place] 12/26/2023, reviewed notes, she was not aware thatthey had already placed an order for an x-ray on 11/28/2023. -X-ray of the pelvis with right hip-moderate left and mild right hip arthritis, mild arthritis in the lumbar spine Her symptoms and signs worse on the right, check if better on meds given -refer to ortho for further evaluation-- gave her prescription for meloxicam 7.5 mg she is using a twice daily 12/15/23--saw [facility] ortho [facility]-rpt xray-Mild to moderate bilateral hip osteoarthritis. 12/19/23--MRI Rt HIP at [facility]--per ortho-progressive advanced osteoarthritis of the hip joint. However she also has an abnormal area that looks like a possible subchondral insufficiency fracture. -- given prescription for crutches, she has using a cane and also has a walker from the [facility] Saw Ladi 01/02/24 and is chandan THR 01/25/24 at [facility] -they want her to take-- vitamin D -3 5000 daily for 2 weeks prior and 4 weeks after Preop labs 01/05/24: Nml CBC,coags, UA,LFT,BMP, Ca 9, ESR and MRSA DNA neg EKG--SB 54 bpm with SA CXR:- hyperinflation, flattening of the diaphragm, mild chronic interstitial coarsening, chronic T11 and age indeterminate T8 compression fracture, these were present in 2020 EKG 12/22-sinus bradycardia at 55 B p.m.. 8943-dowf-gn valve abnormalities, stress echo negative. NONsmoker. history of fall from a ladder, August 2019, had seen Neurosurgery, ENT who advised follow-up as needed 12/19-per DrGoren-history of a right temporal tSAH, left temporal small venous EDH, left temporal minimally displaced skull fracture and enlargement of a right convexity SDH now s/p MMA embolization-fu prn denies any difficulty hearing. 07/2021-was at a organized event and a horse kicked her on her left leg and she fell to her left side 07/31/2021 --rib xray with chest -neg Had CT Chest 08/2021>comp to 2018 1. Several bilateral pulmonary micro nodules measuring less than 0.6 cm in size, unchanged from 2019. No further follow-up is required as per Fleischner guidelines in this patient with no personal history of malignancy. 2. Fractures of the left anterolateral 5th through 7th ribs. New from previous imaging. 3. New moderate compression of T8. Seen as new patient 01/19- Complains of difficulty sleeping, goes to bed around 11:00 p.m., wakes uparound 5-6 a.m., takes a shower at night, hobby-cross stitch, is taking nfbh-uva-xpgamnq 25 mg tablet most likely diphenhydramine for sleep, advised against use due to increase risk of fall. admit tosymptoms of sore throat, postnasal drainage some sneezing, not taking any eoej-ldg-rmwsqez antihistamines. Denies excessive caffeine use. Tries to walk daily. was adv to start melatonin,claritin hs for NSC/PND-- 04/13/2023-On melatonin 10 mg., took Claritin for few days with improvement of symptoms. States waking up around 2:23 a.m. and unable to go back to sleep. Getting about 5 hours of sleep. 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 Had sleep study about 10 years ago, reviewed records>sleep study 03/01/2010-no obstructive sleep apnea, no PLMD, no nocturnal desaturation, primary snoring was noted and some limb movements were noted thought to have circadian rhythm disorder related to shift work. Had seen Sleep Clinic was started on Klonopin from 2012 to 2014 and was on Ambien 2009 to 2017;--was walking in sleep, was advised use Flonase then, not using now CT maxillofacial 2019 showed mucosal thickening of the sinuses, no DNS. -she does try to sleep on her sides Start Nasal steroid spray as directed. Use nasal saline spray before Steroid spray and every 1-2 hrs in day as needed for nasal congestion/dryness. Try tying a tennis ball to back to avoid supine position st sleep Try to get melatonin ER 10/21--st temazepam 7.5mg hs with improvement. 01/20- she takes it most days but some days still takes melatonin Colonoscopy gets every 5 years due to previous history of polyps, 06/2018-sigmoid diverticulosis, 2 polyps in the transverse colon and ascending colon, will be due 06/2023. 10/02/20236782-tfiesvlvqoy-hqrsdbt diverticulosis small and large mouth, 1 mm polyp TC-sessile, biopsy-BENIGN,--lymphoid aggregate, no polyp- RPT 10 YRS SP right inguinal hernia repair with mesh on 01/31/23 Mammogram -het DBT-11/06/23. History of nonmelanoma skin cancer, follows with Dermatology 01/19 Osteoporosis>F/B [facility], on alendronate weekly -[facility] medication. DEXA scan 08/18/2021 done at the [facility], next will be due 08/2023., Advised also have vitamin-D level checked. Labs -07/21- normal CMP, lipids 190/44/77/20 -normal CBC [facility] labs--08/02/23--A1c 5.7,nml BMP,lft, VD 69, 202/50/79/113, ua 07/31/23--DEXA--LS -2.5;hips -2.4/-2.3----saw endo 08/17/23--was adv drug holiday as was on fosamax [id number] and [id number]. 02/07/24--Vd,PTH,cmp, ca/cr f/u 1 yr Appetite is good.Weight as above No headache,URI symptoms, vision changes No neck pain/swelling, chest pain, palpitations, shortness of breath, leg edema.walks uphill S SOB No nausea,vomiting,heartburn, constipation or diarrhea, blood in the stool or black stool, abdominal pain. No blood in the urine, no urinary problems. No night sweats, no unusual bleeding/bruising, and no swollen nodes. No excessive thirst Or urination . No rash, new/changing skin lesions. No other joint pain or swelling. - check about hepatitis-B vaccine status. 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 With food, if not better take 2/day. 60 Tablet 0 Temazepam 7.5 MG Oral Capsule (Restoril) Take 1 Capsule by mouth at bedtime. 30 Capsule 0 No current facility-administered medications for this visit. Review of patient's allergies indicates: No Known Allergies OBJECTIVE: BP 104/60 | Pulse 55 | Temp 36.3 C (97.4 F) (Tympanic) | Ht 1.626 m (5' 4") | Wt 50.4 kg (111 lb 3.2 oz) | LMP 06/09/2005 | SpO2 99% | BMI 19.09 kg/m | BSA 1.51 m PHYSICAL EXAM: General: alert, healthy, no distress, well nourished and well developed Head: Normocephalic, atraumatic Eye Exam: PERRLA, EOMI, Conjunctiva are pink and non-injected, sclera clear Ears: External ears normal, Canal clear, Tm normal Nose: no mucosal erythema, no mucosal edema, no purulent discharge Oropharynx: no exudate and no erythema Neck: supple, no bruits, no JVD, thyroid normal size, non-tender, without nodularity Lymph: No palpable lymphadenopathy. Heart: Regular rhythm and rate, no murmurs and no gallops Lungs: lungs clear to auscultation Abdomen: Soft, non-tender, normal bowel sounds, no masses or organomegaly, no bruits Extremities: no edema, no clubbing, no cyanosis. Dec ROM rt hip Neuro Exam: alert & oriented x 3 with fluent speech, no focal motor/sensory deficits, gait normal Skin: skin color, texture, turgor are normal, no rashes ASSESSMENT/PLAN: Preoperative general physical examination (Primary) Arthritis of right hip Bilateral hip joint arthritis Patient is at low risk For perioperative cardiac event and may undergo the proposed surgery under noninvasive cardiac monitoring. Postoperative DVT prophylaxis per surgeon. Patient aware to hold meloxicam for 10-14 days prior to surgery, she is starting high-dose vitamin-D supplement per ortho History of subarachnoid hemorrhage History of fall from ladder Senile osteoporosis History of vertebral compression fracture - on drug holiday, continue calcium supplement Primary snoring Other chronic sinusitis -- resume Nasacort daily at night Hyperinflation of lungs Likely from prior exposure to second hand smoke in past History of colon polyps Cc DrCherry Follow-up: Return if symptoms worsen or fail to improve. | Check-out note: As chandan (This note was completed using the dictation program Fluency Direct. As such, there may be misspellings, word substitutions, or other variations that should not change the essence of the clinical content of this encounter note. If there is need for further clarification, please direct questions to the provider listed above.) Patient and / caregiver verbalize understanding of above instructions and agrees with plan of care. Elisa Graham MD 01/16/2024 documented in this encounter Nursing Notes * Yolis Schrader MED ASSIST - 01/16/2024 11:26 AM EDT Chief Complaint Patient presents with Follow Up 3 month follow up - pt denied any new concerns documented in this encounter Plan of Treatment Upcoming Encounters Date Type Department Care Team (Late st Contact Info) Description 01/22/2024 1:30 PM EDT Office Visit Dermatology [address] [place] [address] Arias Dee MD [address] [place] [address] [place] [address] 04/11/2024 9:20 AM EDT Office Visit General Internal Medicine [address] [place] [address] Elisa Graham MD [address] [place] [address] [place] [address] Scheduled Procedures Name Priority Associated Diagnoses Date/Ti [...] D LEVEL ONCE IN A LIFETIME-USE SMARTSET# [id number] Completed 08/21/2014 Pap Smear Discontinued 09/15/2020, 07/31, [...] this encounter Medical Devices Implanted Type Area Parachute Marker Device Identifier Shelf Expiration Date Model / Serial / Lot Process System [employer], Embosphere, Microspheres, 300-500 Implanted:Qty: 1 on 11/05/2019 by Israel Alvares MD at [place] [facility] [place]A: Head [employer] 11/29/2021 [id number] / [id number] / [id number] Plug Mesh Small Hernia - [id number] Implanted:Qty: 1 on 01/31/2023 by Jabari Salazar MD at [facility] Right: Groin CR BARD : DAVOL 09/26/2023 [id number] / / [id number] documented as of this encounter Visit Diagnoses Diagnosis Preoperative general physical examination- Primary Other specified pre-operative examination Arthritis of right hip History of subarachnoid hemorrhage Personal history of other diseases of circulatory system History of fall from ladder Senile osteoporosis Bilateral hip joint arthritis History of colon polyps Personal history of colonic polyps History of vertebral compression fracture Primary snoring Other dyspnea and respiratory abnormality Other chronic sinusitis Hyperinflation of lungs Other symptoms involving respiratory system and chest documented in this encounter Advance Directives Latest [...] and were consensually agreed upon. Care Teams Heavy Truck Technician Relationship Specialty Start Date End Date Elisa Graham MD [address] [facility] [place] [address] PCP - General Internal Medicine 01/06/23 documented as of this encounter
--- OUTSIDE RECORDS SUMMARY | 2024-01-25 13:50 | External Medical Summary | Summary of Care ---
Author Name Unknown Organization [facility] Address [address] [facility] [address] Phone [phone] Care Team Providers Care Software Reverse Engineer Name Role Phone Elisa Graham MD Primary Care Provider [phone] Reason for Visit * Reason Onset Date Comments Appointment Canceled 01/05/2024 Encounter Details Date Type Department Care Team (Late st Contact Info) Description 01/05/2024 Telephone General Internal Medicine [facility] [address] [facility] [place] [address] Elisa Graham MD [address] [place] [address] Appointment Canceled Allergies No known active allergiesdocumented as of this encounter (statuses as of 01/05/2024) Medications Medication Sig Dispensed Refills Start Date [...] 04/13/2023 Active Additional Information Patient taking differently:2 [place] Each NostrilPRN, Rhinitis, Reported on 10/17/2023 Biotin [...] take 2/day. 60 Tablet 0 12/08/2023 Active methylPREDNISolone 4 MG Oral Tablet Therapy Pack (Medrol Dosepack)Indication s:Severe right groin pain,Arthritis of right hip follow package directions--use if not better with meloxicam 21 Tablet 0 12/08/2023 Active Temazepam 7.5 MG Oral Capsule (Restoril)Indicatio ns:Other insomnia Take 1 Capsule by mouth at bedtime. 30 Capsule 0 12/22/2023 Active documented as of this encounter (statuses as of 01/05/2024) Active Problems Problem Noted Date Diagnosed Date [...] as of this encounter (statuses as of 01/05/2024) Resolved Problems Problem Noted Date Diagnosed Date [...] as of this encounter (statuses as of 01/05/2024) Immunizations Name Administration Dates Next Due COVID-19 mRNA, LNP-s, No Pre serve, 2-Dose Series ([employer]iny[employer]) 09/10/2021,08/12/2021 HEP A - Hepatitis A (Adult > 18 yrs) 04/05/1998, 08/03/1997,08/18/1996 Hepatitis B, 20+ yrs 08/11/1990 Influenza, Whole Virus 09/20/2003,2001,10/07/2001,11/18,07/30/1995 MMR - Measles/Mumps/Rubella Vaccine 01/24/1985 Meningococcal Polysaccharide Vaccine (Menommune) 09/20/2003,04/05/1998,12/28/1992 OPV - Polio Virus Vaccine (Oral) 12/28/1989,10/1984 PPD 04/05/1998 Pneumococcal Conjugate Vacci ne, 20-valent ([id number]) 01/02/2023 Pneumococcal Polysaccharide PPV23 (Pneumovax) 12/15/2021 Rabies [...] No 09/02/2019 documented as of this encounter Miscellaneous Notes * Telephone Encounter - Bruna Lin, RN - 01/05/2024 3:20 PM EST Unsure of what patient was asking in her note to Dr. Graham. Appointment with Aziza Tolliver PA-C scheduled for tomorrow 01/04 is for a CDL physical. Appointment with Dr. Graham on 01/05 is a follow up appointment which pt will need pre-op clearance. Testing was done today, 01/04. Pt to keep both appointments. documented in this encounter Plan of Treatment Upcoming Encounters Date Type Department Care Team (Late st Contact Info) Description 01/06/2024 1:00 PM EST Office Visit Family Practice [facility] [address] [facility] [place] [address] Aziza Tolliver PA-C [address] [place] [address] [place] [address] 01/16/2024 11:20 AM EDT Office Visit General Internal Medicine [facility] [place] [address] [place] [address] [address] Elisa Graham MD [address] [facility] [place] [address] 01/22/2024 1:30 PM EDT Office Visit Dermatology [facility] [place] [address] [facility] [place] [address] Arias Dee MD [address] [facility] [place] [address] 04/11/2024 9:20 AM EDT Office Visit General Internal Medicine [facility] [place] [address] [facility] [place] [address] Elisa Graham MD [address] [facility] [place] [address] Scheduled Procedures Name Priority Associated Diagnoses Date/Ti [...] D LEVEL ONCE IN A LIFETIME-USE SMARTSET# [id number] Completed 08/21/2014 Pap Smear Discontinued 09/15/2020, 07/31, [...] this encounter Medical Devices Implanted Type Area Motion Picture Equipment Supervisor Device Identifier Shelf Expiration Date Model / Serial / Lot [employer], Embosphere, Microspheres, 300-500 Implanted:Qty: 1 on 11/05/2019 by Israel Alvares MD at OR [facility] [place] [place] N/A: Head [employer] 11/29/2021 [id number] / [id number] / [id number] Plug Mesh Small Hernia - [id number] Implanted:Qty: 1 on 01/31/2023 by Jabari Salazar MD at OR [facility] Right: Groin CR BARD : DAVOL 09/26/2023 [id number] / / [id number] documented as of this encounter Advance Directives Latest Code Status [...] and were consensually agreed upon. Care Teams Software Reverse Engineer Relationship Specialty Start Date End Date Elisa Graham MD [address] [facility] [place] [address] PCP - General Internal Medicine 01/06/23 documented as of this encounter
--- OUTSIDE RECORDS SUMMARY | 2024-01-25 13:50 | External Medical Summary | Summary of Care ---
Author Name Unknown Organization [facility] Address [address] [facility] [place] [address] Phone [phone] Care Team Providers Care Microfilm Equipment Inspector Name Role Phone Elisa Graham MD Primary Care Provider [phone] Reason for Visit * Reason Comments Follow Up Patient here for a s kin check. She is not aware of any new or changing skin lesions. She is scheduled for hip surgery this week, . Encounter Details Date Type Department Care Team (Late st Contact Info) Description 01/22/2024 1:30 PM EDT Office Visit Dermatology [facility] [address] [facility] [place] [address] Arias Dee MD [address] [facility] [address] Actinic skin damage*; Seborrheic keratoses; Hx of basal cell carcinoma; Scar; Actinic keratosis Allergies No known active allergiesdocumented as of this encounter (statuses as of 01/22/2024) Medications Medication Sig Dispensed Refills Start Date [...] 04/13/2023 Active Additional Information Patient taking differently:2 [place] Each NostrilPRN, Rhinitis, Reported on 10/17/2023 Biotin [...] Take 1 Capsule by mouth at bedtime. Do not start before January 23, 2024. 30 Capsule 0 01/23/2024 Active documented as of this encounter (statuses as of 01/22/2024) Active Problems Problem Noted Date Diagnosed Date [...] as of this encounter (statuses as of 01/22/2024) Resolved Problems Problem Noted Date Diagnosed Date [...] as of this encounter (statuses as of 01/22/2024) Immunizations Name Administration Dates Next Due COVID-19 mRNA, LNP-s, No Pre serve, 2-Dose Series ([employer]) 09/10/2021,08/12/2021 HEP A - Hepatitis A (Adult > 18 yrs) 04/05/1998, 08/03/1997,08/18/1996 Hepatitis B, 20+ yrs 08/11/1990 Influenza, Whole Virus 09/20/2003,2001,10/07/2001,11/18,07/30/1995 MMR - Measles/Mumps/Rubella Vaccine 01/24/1985 Meningococcal Polysaccharide Vaccine (Menommune) 09/20/2003,04/05/1998,12/28/1992 OPV - Polio Virus Vaccine (Oral) 12/28/1989,0310/1984 PPD 04/05/1998 Pneumococcal Conjugate Vacci ne, 20-valent ([id number]) 01/02/2023 Pneumococcal Polysaccharide PPV23 (Pneumovax) 12/15/2021 Rabies [...] as of this encounter Progress Notes * Arias Dee MD - 01/22/2024 1:24 PM EDT SUBJECTIVE: Chief Complaint: Chief Complaint Patient presents with Follow Up Patient here for a skin check. She is not aware of any new or changing skin lesions. She is scheduled for hip surgery this week, . HPI: Caroline Dwyer is a 68 year old female seen for a full skin check for history of nonmelanomaskin cancer. Patient with no concerns. Denies any spots that are itching, burning, and bleeding. Denies any spots that are changing. Hip surgery DERMATOLOGIC HISTORY: Hx NMSC - BCC L anterior thigh 05/2015, R shoulder 05/213 recurrent from 2002, R krysta 2002 R thigh REVIEW OF SYSTEMS: CONSTITUTIONAL: negative SKIN: No new or changing moles or rashes other than those noted in HPI HEME/LYMPH: No new or enlarging lumps or bumps OBJECTIVE: GEN: Healthy, alert, no distress, appears oriented, pleasant, and cooperative SKIN: Detailed exam of hair, face, trunk, arms, and legs Right anterior thigh, left lateral thigh - x2 pink scaly papules Nasal dorsum - dry gritty erythematous papule Well-healed scar(s) at primary site(s) without evidence of recurrence Scattered on face, chest, back - diffuse mottled hypopigmented and hyperpigmented macules without significant irregularity. Associated telangiectasias At the trunk and extremities are several scattered correa/brown hyperkeratotic stuck on appearing waxypapules. ASSESSMENT/PLAN: Actinic keratosis - Lesions on thighs could not r/o early superficial BCC, but will hold on biopsy due to upcoming hip surgery. Will cryo instead. See back in 3-4 months to check, if not resolved at that time will shave/curette. For today will treat as AKs -The diagnosis and malignant potential of the lesion was explained. Treatment options were reviewedincluding cryotherapy, topical medications, and observation. All questions were addressed. Procedure - Cryotherapy (Premalignant Destruction) -The patient would like to proceed with cryosurgery;Cryosurgery explained to the patient, consent obtained, patient, site and procedure verified, and then cryotherapy was performed with Liquid Nitrogen via cryo spray unit to 3 lesions. Location noted in physical exam. Post op course explained. -Discussed that if any of these lesions fail to completely resolve after treatment patient should call me for re-evaluation Scar(s), History of Nonmelanoma Skin Cancer - Well healed scar(s) with no evidence of recurrence - Recommended periodic skin exams and instructed to call clinic if patient notices any changing lesions, including rapid enlargement, changes in color or shape or symptoms, bleeding, or other concerns. The common features and behavior of non-melanoma skin cancers (e.g. basal cell carcinoma/squamouscell carcinoma) as well as the features of melanoma were also reviewed. -Daily sun protection recommended including physical (i.e. clothing) and chemical blockers. Broad spectrum sunscreens with at least SPF 30 for UVA and UVA protection were recommended. Chronic Actinic Damage - Discussed that skin changes are due to chronic sun exposure. - Daily sun protection recommended as discussed above Seborrheic keratoses - The benign nature of these lesions was discussed with the patient and that no treatment is indicated today. Arias Dee MD Ref: SELF[[id number]] NO STREET ADDRESS AVAILABLE None (office) None (fax) PCP: ELISA GRAHAM [address] [facility] [address] [place] [address] [phone] documented in this encounter Plan of Treatment Upcoming Encounters Date Type Department Care Team (Late st Contact Info) Description 04/11/2024 9:20 AM EDT Office Visit General Internal Medicine [facility] [address] [facility] [place] [address] Elisa Graham MD [address] [place] [address] [place] [address] 04/23/2024 8:30 AM EDT Office Visit Dermatology [address] [place] [address] Arias Dee MD [address] [facility] [place] [address] Scheduled Procedures Name Priority Associated Diagnoses Date/Ti [...] D LEVEL ONCE IN A LIFETIME-USE SMARTSET# [id number] Completed 08/21/2014 Pap Smear Discontinued 09/15/2020, 07/31, [...] this encounter Medical Devices Implanted Type Area Side Seam Envelope Machine Operator Device Identifier Shelf Expiration Date Model / Serial / Lot [employer] Inc, Embosphere, Microspheres, 300-500 Implanted:Qty: 1 on 11/05/2019 by Israel Alvares MD at OR [facility] [place] N/A: Head [employer] 11/29/2021 S420GH / [id number] / [id number] Plug Mesh Small Hernia - [id number] Implanted:Qty: 1 on 01/31/2023 by Jabari Salazar MD at OR [facility] Right: Groin CR BARD : DAVOL 09/26/2023 [id number] / / [id number] documented as of this encounter Visit Diagnoses Diagnosis Actinic skin damage- Primary Other dermatitis due to solar radiation Seborrheic keratoses Hx of basal cell carcinoma Personal history of other malignant neoplasm of skin Scar Scar condition and fibrosis of skin Actinic keratosis documented in this encounter Advance Directives Latest [...] and were consensually agreed upon. Care Teams Microfilm Equipment Inspector Relationship Specialty Start Date End Date Elisa Graham MD [address] [facility] [place] [address] PCP - General Internal Medicine 01/06/23 documented as of this encounter
--- OUTSIDE RECORDS SUMMARY | 2024-01-25 13:50 | External Medical Summary | Summary of Care ---
Author Name Unknown Organization [facility] Address [address] [facility] [address] Phone [phone] Care Team Providers Care Tube Tester Name Role Phone Elisa Graham MD Primary Care Provider [phone] Reason for Visit * Reason Onset Date Comments Advice 01/10/2024 Encounter Details Date Type Department Care Team (Late st Contact Info) Description 01/10/2024 Telephone General Internal Medicine [facility] [address] [place] [address] Elisa Graham MD 200 [place] [address] Advice Allergies No known active allergiesdocumented as of this encounter (statuses as of 01/24/2024) Medications Medication Sig Dispensed Refills Start Date [...] 04/13/2023 Active Additional Information Patient taking differently:2 [place] Each NostrilPRN, Rhinitis, Reported on 10/17/2023 Biotin [...] take 2/day. 60 Tablet 0 12/08/2023 Active Cyanocobalamin (VITAMIN B-12) 1000 MCG Tablet Take 1 Tablet by mouth in the morning. 0 4 Discontinue d(End of Procedure) Temazepam 7.5 MG Oral Capsule (Restoril)Indicat ions:Other insomnia Take 1 Capsule by mouth at bedtime. 30 Capsule 0 12/22/2023 4 Discontinue d(Refill) documented as of this encounter (statuses as of 01/24/2024) Active Problems Problem Noted Date Diagnosed Date [...] as of this encounter (statuses as of 01/24/2024) Resolved Problems Problem Noted Date Diagnosed Date [...] as of this encounter (statuses as of 01/24/2024) Immunizations Name Administration Dates Next Due COVID-19 mRNA, LNP-s, No Pre serve, 2-Dose Series (Ingenic) 09/10/2021,08/12/2021 HEP A - Hepatitis A (Adult > 18 yrs) 04/05/1998, 08/03/1997,08/18/1996 Hepatitis B, 20+ yrs 08/11/1990 Influenza, Whole Virus 09/20/2003,2001,10/07/2001,11/18,07/30/1995 MMR - Measles/Mumps/Rubella Vaccine 01/24/1985 Meningococcal Polysaccharide Vaccine (Menommune) 09/20/2003,04/05/1998,12/28/1992 OPV - Polio Virus Vaccine (Oral) 12/28/1989,0310/1984 PPD 04/05/1998 Pneumococcal Conjugate Vacci ne, 20-valent ([id number]) 01/02/2023 Pneumococcal Polysaccharide PPV23 (Pneumovax) 12/15/2021 Rabies [...] encounter Miscellaneous Notes * Telephone Encounter - Jennifer King LPN - 01/12/2024 4:26 PM EDT Patient notified of message below. Verbalized understanding. She is having labs done in January. * Telephone Encounter - Elisa Graham MD - 01/11/2024 1:09 PM EDT Recent labs--calcium normal, so OK to take vit D Will discuss at appt 01/15 When is she having repeat labs ordered by [place] sewer and drain technician? * Telephone Encounter - Camilla Tomlinson CPhT - 01/10/2024 3:19 PM EDT Patient calling to review her vitamin D dose she will need to take prior and after surgery , Dr Russell will be doing her Hip surgery and advised patient to take vitamin D -3 5000 daily for 2 weeks prior and 4 weeks after , patient questioning dose due to it just being decreasrd please advise Thank you, Camilla Tomlinson Production Line Worker II [facility] ([facility]PS) (formerly Telepharmacy) 01/10/2024 3:21 PM documented in this encounter Plan of Treatment Upcoming Encounters Date Type Department Care Team (Late st Contact Info) Description 04/11/2024 9:20 AM EDT Office Visit General Internal Medicine [place] [address] Elisa Graham MD [address] [facility] [address] 04/23/2024 8:30 AM EDT Office Visit Dermatology [place] [facility] [address] [facility] [place] [address] Arias Dee MD [address] [facility] [address] [place] [address] Scheduled Procedures Name Priority Associated Diagnoses Date/Ti [...] D LEVEL ONCE IN A LIFETIME-USE SMARTSET# [id number] Completed 08/21/2014 Pap Smear Discontinued 09/15/2020, 07/31, [...] this encounter Medical Devices Implanted Type Area Screen Printing Inspector Device Identifier Shelf Expiration Date Model / Serial / Lot [email or web address], Embosphere, Microspheres, 300-500 Implanted:Qty: 1 on 11/05/2019 by Israel Alvares MD at OR [facility] [place] N/A: Head [employer] 11/29/2021 S420GH / [id number] / [id number] Plug Mesh Small Hernia - [id number] Implanted:Qty: 1 on 01/31/2023 by Jabari Salazar MD at OR [facility] Right: Groin CR BARD : DAVOL 09/26/2023 [id number] / / [id number] documented as of this encounter Advance Directives [...] and were consensually agreed upon. Care Teams Tube Tester Relationship Specialty Start Date End Date Elisa Graham MD [address] [place] [address] PCP - General Internal Medicine 01/06/23 documented as of this encounter
--- OUTSIDE RECORDS SUMMARY | 2024-01-25 13:50 | External Medical Summary | Summary of Care ---
Author Name Unknown Organization [facility] [address] [facility] [address] Phone [phone] Care Team Providers Care Lock Stitch Channeler Name Role Phone Elisa Graham MD Primary Care Provider [phone] Reason for Visit * Reason Onset Date Comments Medication Refill 01/19/2024 Encounter Details Date Type Department Care Team (Late st Contact Info) Description 01/19/2024 Refill General Internal Medicine [facility] [address] [facility] [place] [address] Elisa Graham MD 200 [facility] [place] [id number] Other insomnia Allergies No known active allergiesdocumented as of [...] 04/13/2023 Active Additional Information Patient taking differently:2 [place] Each NostrilPRN, Rhinitis, Reported on 10/17/2023 Biotin [...] 23, 2024. 30 Capsule 0 01/23/2024 Active Temazepam 7.5 MG Oral Capsule (Restoril)Indicat ions:Other insomnia Take 1 Capsule by mouth at bedtime. 30 Capsule 0 12/22/2023 Discontinue d(Refill) documented as of this encounter [...] mRNA, LNP-s, No Pre serve, 2-Dose Series ([employer]) 09/10/2021,08/12/2021 HEP A - Hepatitis A (Adult > 18 yrs) 04/05/1998, 08/03/1997,08/18/1996 Hepatitis B, 20+ yrs 08/11/1990 Influenza, Whole Virus 09/20/2003,2001,10/07/2001,11/18,07/30/1995 MMR - Measles/Mumps/Rubella Vaccine 01/24/1985 Meningococcal Polysaccharide Vaccine (Menommune) 09/20/2003,04/05/1998,12/28/1992 OPV - Polio Virus Vaccine (Oral) 12/28/1989,0310/1984 PPD 04/05/1998 Pneumococcal Conjugate Vacci ne, 20-valent ([id number]) 01/02/2023 Pneumococcal Polysaccharide PPV23 (Pneumovax) 12/15/2021 Rabies [...] encounter Miscellaneous Notes * Telephone Encounter - Elisa Graham MD - 01/22/2024 12:22 PM EDTSigned Prescriptions: Disp Refills Temazepam 7.5 MG Oral Capsule (Restoril) 30 Cap*0 Sig: Take 1 Capsule by mouth at bedtime. Do not start before January 23, 2024.Authorizing Provider: ELISA GRAHAM------ * Telephone Encounter - Elisa Graham MD - 01/22/2024 12:20 PM EDT "I have reviewed the patient's controlled substance dispensing history in the Prescription Drug Monitoring Program in compliance with the [place] regulations before prescribing a controlled substance." Due from 01/23/2024, rx sent * Telephone Encounter - Maria Luz Haji, [facility] located [facility] - 01/21/2024 2:17 PM EDTPending Prescriptions: Disp Refills Temazepam 7.5 MG Oral Capsule (Restoril) 30 Cap*0 Sig: Take 1 Capsule by mouth at bedtime. Electronically signed by Maria Luz Haji [facility] at 01/21/2024 2:17 PM EDT * Telephone Encounter - Maria Luz Haji [facility] - 01/21/2024 2:16 PM EDT I have reviewed the patients controlled substance dispensing history in the Prescription Drug Monitoring Program in compliance with the [facility] regulations before prescribing a controlled substance. PDMP checked on 01/21/2024. Pending Prescriptions: Disp Refills Temazepam 7.5 MG Oral Capsule (Restoril) 30 Cap*0 Sig: Take 1 Capsule by mouth at bedtime. Last Visit: 01/16/2024 (in office), Visit date not found (telemedicine) Next Visit: 04/11/2024 Date medication was last filled: 12/24/23 Date medication is due for refill: 01/22/24 Pharmacy: [id number] Is this request for a controlled substance? Yes and Urine Drug Screen Not completed Toxicology results: Results for orders placed or performed during the hospital encounter of 09/02/19 TOX SCREEN, URINE, W/ CONFIRMATION Result Value Amphetamine NEGATIVE Benzodiazepines NEGATIVE Cannabinoids NEGATIVE Cocaine Metabolite NEGATIVE HYDROCODONE NEGATIVE Morphine / Codeine NEGATIVE METHADONE METABOLITE NEGATIVE OXYCODONE NEGATIVE TOX COMMENT THE ABOVE SCREENING RESULTS ARE PRESUMPTIVE AND CAN ONLY BE USED FOR MEDICAL PURPOSES. POSITIVE RESULTS REFLEX TO CONFIRMATORY TESTING. Cutoff Concentration Please approve if appropriate. Thank You, Maria Luz Haji [facility] Clinical Pharmacist Centralized Clinical Pharmacy Services (CCPS) (formerly Telepharmacy) [phone] 01/21/2024, 2:16 PM Electronically signed by Maria Luz Haji [facility] at 01/21/2024 2:17 PM EDT documented in this encounter Plan of Treatment Upcoming Encounters Date Type Department Care Team (Late st Contact Info) Description 01/22/2024 1:30 PM EDT Office Visit Dermatology [place] [address] [place] [address] Arias Dee MD [address] [place] [address] 04/11/2024 9:20 AM EDT Office Visit General Internal Medicine [place] [facility] [address] [place] [address] Elisa Graham MD [address] [place] [address] Scheduled Procedures Name Priority Associated Diagnoses Date/Ti [...] D LEVEL ONCE IN A LIFETIME-USE SMARTSET# [id number] Completed 08/21/2014 Pap Smear Discontinued 09/15/2020, 07/31, [...] this encounter Medical Devices Implanted Type Area Capper Machine Operator Device Identifier Shelf Expiration Date Model / Serial / Lot blink[employer] Inc, Embosphere, Microspheres, 300-500 Implanted:Qty: 1 on 11/05/2019 by [place] Al[place]ares [place] [facility] [place]: Head [employer] 11/29/2021 S420GH / [id number] / [id number] Plug Mesh Small Hernia - [id number] Implanted:Qty: 1 on 01/31/2023 by Jabari Salazar MD at OR [facility] Right: Groin CR BARD : DAVOL 09/26/2023 [id number] / / [id number] documented as of this encounter Visit Diagnoses Diagnosis Other insomnia documented in this encounter Advance Directives Latest Code Status on File Code Status Date Activated Date Inactivated Comments Full Code 01/31/2023 9:56 AM 01/31/2023 4:43 PM This o rder reflects the patients [...] and were consensually agreed upon. Care Teams Lock Stitch Channeler Relationship Specialty Start Date End Date Elisa Graham MD [address] [facility] [place] [address] PCP - General Internal Medicine 01/06/23 documented as of this encounter
--- OUTSIDE RECORDS SUMMARY | 2024-01-25 13:50 | External Medical Summary | Summary of Care ---
Author Name Unknown Organization [facility] Address [address] [facility] [address] Phone [phone] Care Team Providers Care Mine Equipment Design Engineer Name Role Phone Elisa Graham MD Primary Care Provider [phone] Encounter Details Date Type Department Care Team (Late st Contact Info) Description 01/09/2024 Orders Only General Internal Medicine [facility] 200 [facility] [place] [place] [address] Elisa Graham MD [address] [place] [address] Allergies No known active allergiesdocumented as of [...] 04/13/2023 Active Additional Information Patient taking differently:2 [place] Each NostrilPRN, Rhinitis, Reported on 10/17/2023 Biotin [...] mRNA, LNP-s, No Pre serve, 2-Dose Series ([employer]) 09/10/2021,08/12/2021 HEP A - Hepatitis A (Adult > 18 yrs) 04/05/1998, 08/03/1997,08/18/1996 Hepatitis B, 20+ yrs 08/11/1990 Influenza, Whole Virus 09/20/2003,2001,10/07/2001,11/18,07/30/1995 MMR - Measles/Mumps/Rubella Vaccine 01/24/1985 Meningococcal Polysaccharide Vaccine (Menommune) 09/20/2003,04/05/1998,12/28/1992 OPV - Polio Virus Vaccine (Oral) 12/28/1989,10/1984 PPD 04/05/1998 Pneumococcal Conjugate Vacci ne, 20-valent ([id number]) 01/02/2023 Pneumococcal Polysaccharide PPV23 (Pneumovax) 12/15/2021 Rabies [...] AM EDT Office Visit General Internal Medicine [facility] [address] [place] [address] Elisa Graham MD [address] [place] [address] [place] [address] 01/22/2024 1:30 PM EDT Office Visit Dermatology [facility] [address] [facility] [place] [address] Arias Dee MD [address] [place] [address] [place] [address] 04/11/2024 9:20 AM EDT Office Visit General Internal Medicine [facility] [address] [facility] [place] [address] Elisa Graham MD [address] [facility] [place] [address] Scheduled Procedures Name Priority Associated Diagnoses Date/Ti [...] D LEVEL ONCE IN A LIFETIME-USE SMARTSET# [id number] Completed 08/21/2014 Pap Smear Discontinued 09/15/2020, 07/31, [...] this encounter Medical Devices Implanted Type Area Director Of Pupil Personnel Program Device Identifier Shelf Expiration Date Model / Serial / Lot [employer] Inc, Embosphere, Microspheres, 300-500 Implanted:Qty: 1 on 11/05/2019 by Israel Alvares MD at [place] [facility] [place] N/A: Head [employer] 11/29/2021 S420GH / [id number] / [id number] Plug Mesh Small Hernia - [id number] Implanted:Qty: 1 on 01/31/2023 by Jabari Salazar MD at OR [facility] Right: Groin CR BARD : DAVOL 09/26/2023 [id number] / / [id number] documented as of this encounter Procedures Procedure Name Priority Date/Time Associated Diagnosis Comments CHEMISTRY-OUTSIDE Routine 01/05/2024 documented in this encounter Results * CHEMISTRY-OUTSIDE (01/05/2024) Not all results display below - see scan for full detail OUTSIDE LAB (SEE SCANNED REPORT) Comment:SCAN INCL: PRE OP LA BS: PT, INR, PTT,CMP,UA,CBCD CREATININE-OUTSID E LAB 0.70 0.6 - 1.2 MG/DL OUTSIDE LAB (SEE SCANNED REPORT) EGFR-OUTSIDE LAB 89.7 OUT SIDE LAB (SEE SCANNED REPORT) POTASSIUM-OUTSIDE LAB 4.2 3.5 - 5.1 MMOL/L OUTSIDE LAB (SEE SCANNED REPORT) GLUCOSE-OUTSIDE LAB 87 70 - 99 MG/DL OUTSIDE LAB (SEE SCANNED REPORT) HOURS FASTING OUTSID E LAB (SEE SCANNED REPORT) TRIGLYCERIDES-OUT SIDE LAB OUTSIDE LAB (SEE SCANNED REPORT) CHOLESTEROL-OUTSI DE LAB OUTSIDE LAB (SEE SCANNED REPORT) HDL-OUTSIDE LAB OUTS [facility] (SEE SCANNED REPORT) CHOL/HDL RATIO-OUTSIDE LAB OUTSIDE LA B (SEE SCANNED REPORT) LDL (CALCULATED)-OUTS [facility] OUTSIDE LAB (SEE SCANNED REPORT) LDL (DIRECT MEASURE)-OUTSIDE LAB OUTSIDE LAB (SEE SCANNED REPORT) HEMOGLOBIN, S9G-ROXFKAW LAB OUTSIDE LAB (SEE SCANNED REPORT) PHOSPHORUS-OUTSID E LAB OUTSIDE LAB (SEE SCANNED REPORT) PTH-OUTSIDE LAB OUTS [facility] (SEE SCANNED REPORT) MICROALBUMIN RATIO-OUTSIDE LAB OUTSIDE LA B (SEE SCANNED REPORT) PROTEIN, UA-OUTSIDE LAB OUTSIDE LAB (SEE SCANNED REPORT) HGB 12.7 12.0 - 16.0 G/DL OUTSIDE LAB (SEE SCANNED REPORT) 01/05/2024 History Per Patient LABORATORY OUTSIDE LAB (SEE SCANNED REPORT) documented in this encounter Advance Directives Latest [...] and were consensually agreed upon. Care Teams Mine Equipment Design Engineer Relationship Specialty Start Date End Date Elisa Graham MD 200 [facility] [place] [address] PCP - General Internal Medicine 01/06/23 documented as of this encounter
--- NOTE | 2024-01-25 14:27 | Operative Report ---
Post Operative Report Pre & Post Diagnosis Operation Date: 01/25/24 07:15 Pre-Op Diagnosis: Right Hip Osteoarthritis Post-Op Diagnosis: Right Hip Osteoarthritis I identified the patient and participated in the time-out.: Yes Procedure Operation Date: 01/25/24 07:15 Actual Procedures p Right Total Hip Replacement - Anterior Approach(Right) - Jesse Russell MD Surgeon Jesse Russell MD Automobile Service Advisor None Estimated Blood Loss 150 Findings Consistent with Post-Op Diagnosis severely inflamed synovial lining with moderate to severe osteopenic bone. The acetabular component was difficult to seat and required upsizing in order to get good purchase Specimens femoral head and bone and cartilage fragments Complications none Indications components used: [employer] Polar uncemented hip system: Acetabulum size 52 with 25 mm dome screw and Oreo Oxinium liner. Femur size 2 lateral offset with +428 mm Oxinium inner dual mobility head Description of Procedure Following satisfactory spinal anesthesia the patient was supine on the operating room table. The right leg was placed in the traction device in the left leg in the well-leg lockwood. Positioning was confirmed with fluoroscopy. The leg was prepared with ChloraPrep and draped sterilely. A surgical timeout was performed. An anterior approach was performed in the interval between the sartorius and tensor muscles. There is a very thin subcutaneous fat layer. The circumflex femoral vessels were identified and coagulated. An anterior capsulotomy was performed exposing the arthritic femoral neck and head. The hip showed the changes noted above. Fluoroscopy was used to confirm femoral neck resection level which was completed and the arthritic femoral head was removed. The acetabular self-retaining retractor was placed. Acetabular preparation was completed with excision of labral and some capsular tissue. Reaming was then completed under direct vision. Initially the acetabulum was reamed to a 50. The bone was very soft. Multiple attempts were performed to try to secure the 50 shell but in each case the shell would loosen and show shell position was not deemed satisfactory. It was decided to increase the acetabular size and and do no further reaming. After irrigation a 52 multihole shell was impacted and was much better fit and was much better oriented. A single dome screw was used and the cup position remained excellent. The wound was irrigated and the Oreo Oxinium liner was placed. Local anesthetic was placed and the wound was irrigated. The femur was placed into a position of external rotation extension and ad duction. Femoral canal was identified and was prepared up to the size 2. A trial reduction with a lateralized neck and a +4 inner dual mobility head trial was performed. Fluoroscopy showed very good orientation of the components. Yazidi of leg length and offset at the level of the lesser trochanter. Good fit and fill of the proximal canal at the wrist or at the level of the metaphysis. The hip was dislocated. The trial components removed. Local anesthetic was placed. After irrigation and drying the components of the same size was placed as the final implant. The hip was reduced and fluoroscopy confirmed similar findings. The wound was irrigated with 500 cc of experience irrigation. There was very little bleeding. The tensor fascia was closed with a running suture of 0 STR ATAFIX as was the deeper subcutaneous fat layer. The most superficial layer was closed with 3 oh STRATAFIX. A Prineo dressing followed by a negative pressure wound dressing was applied. The patient was returned to her bed in stable condition. I attest to the content of the Intraoperative Record and any orders documented therein. Any exceptions are noted below.
[2024-01-25] MEDS: ORTHO JOINT ANESTHETIC ONE (15:57)
[2024-01-25] MEDS ORDERED: bisacodyL 10 MG SUPP PR PRN (15:58)
[2024-01-25] MEDS ORDERED: NALOXONE HCL 0.4 MG/1 ML VIAL/CARP IV PRN (15:58)
[2024-01-25] MEDS ORDERED: MAGNESIUM HYDROXIDE SUSP 30 ML UDC PO PRN (15:58)
[2024-01-25] MEDS ORDERED: METOCLOPRAMIDE HCL INJ 5 MG/ML 2 ML VIAL IV PRN (15:58)
[2024-01-25] MEDS: ceFAZolin 2000MG 2,000 MG/15 ML SYR IV ONE (16:20)
[2024-01-25] MEDS: SODIUM CHLORIDE 0.9% 1,000 ML IV SCH (16:49)
[2024-01-25] MEDS: SENNA 8.6 MG TAB PO SCH (21:08)
[2024-01-25] MEDS: DOCUSATE SODIUM 100 MG CAP PO SCH (21:08)
[2024-01-26] MEDS: TEMAZEPAM 7.5 MG CAPSULE PO PRN (00:13)
[2024-01-26 06:45] LABS: BUN Creatinine Ratio 28.2 (10-20); Basophils # (auto) 0.01 K/uL (0.00-0.20); Basophils % (auto) 0.1 %; Calcium 8.2 mg/dl (8.6-10.3); Creatinine Clr Calc Pharmacy 61.3 ml/min; Eosinophils # (auto) 0.01 K/uL (0.00-0.50); Eosinophils % (auto) 0.1 %; Est GFR (African American) 102.2 ml/min; Est GFR (Non-African American) 88.1 ml/min; Hematocrit (blood only) 19.9 % (37.0-47.0); Hemoglobin 6.7 g/dl (12.0-16.0); Hypochromasia Present; Immature Granulocytes # (auto) 0.05 K/uL (0.01-0.20); Immature Granulocytes % (auto) 0.5 %; Lymphocytes # (auto) 1.57 K/uL (1.20-3.40); Lymphocytes % (auto) 14.6 %; Mean Corpuscular Hemoglobin 30.7 pg (25.0-34.0); Mean Corpuscular Hgb Conc 33.7 g/dL (32.0-36.0); Mean Corpuscular Volume 91.3 fL (80.0-100.0); Mean Platelet Volume 9.6 fL (9.4-12.4); Monocytes # (auto) 0.67 K/uL (0.11-0.59); Monocytes % (auto) 6.2 %; Neutrophils # (auto) 8.46 K/uL (1.40-6.50); Neutrophils % (auto) 78.5 %; Platelet Count 131 K/uL (130-400); Polychromasia 1+; Potassium 4.2 mmol/L (3.5-5.1); RDW Coefficient of Variation 12.8 % (11.5-14.5); RDW Standard Deviation 41.7 fL (36.4-46.3); Red Blood Count 2.18 M/uL (4.20-5.40); White Blood Count 10.77 K/ul (4.8-10.8)
[2024-01-26] MEDS: MULTIVITAMIN TAB PO SCH (07:14)
[2024-01-26] MEDS: traMADol HCL 50 MG TABLET PO PRN (07:14)
[2024-01-26] MEDS ORDERED: SODIUM CHLORIDE 0.9% 250 ML IV PRN (08:47)
--- NOTE | 2024-01-26 09:01 | Orthopedic Progress Note ---
Date of Service January 26, 2024 Assessment & Plan (1) Degenerative joint disease of right hip: Plan: patient has a history of anxiety. She was immediately hypotensive at the beginning of her surgery yesterday and really had only an estimated blood loss of about 150 cc. I suspect that she was hemoconcentrated prior to surgery. She did receive a lot of fluids during surgery and after surgery in order to try to get her blood count up. I suspect that her blood count today is due to hemodilution but she is also hypotensive and tachycardic. She is also quite emotional. Today we will type and cross and transfuse her 2 units of blood. We are also going to work on pain control by adding Tylenol Celebrex oxycodone and Cymbalta. Will reevaluate the patient in 24 hours in hopes that her status has improved. (2) Acute postoperative anemia due to expected blood loss: Plan: See above Admission and Anticipated Discharge Date Admission Date: January 25, 2024 Subjective Postoperative day #1 right total hip replacement Patient reports a very painful night. She is quite emotional. She really has not been out of bed. At the time she is sitting at the bedside eating breakfast. Physical Exam Physical Exam: Patient appears pale. She complains of hip pain with movement. Her dressing is clean dry and intact there is mild swelling and mild bruising. Her hip is located her leg lengths are equal and she is neurologically and vascularly intact. Results & Data Vital Signs (Past 12 Hours) Vital Signs Temp Pulse Resp BP Pulse Ox O2 Del Method 01/26/24 07:55 Room Air 01/26/24 07:03 37.1 C 95 H 16 95/56 L 95 Room Air 01/26/24 03:10 36.9 C 79 16 103/64 96 Room Air Laboratory Results Hemoglobin is 6.7
[2024-01-26] MEDS: ACETAMINOPHEN 500 MG TAB PO SCH (09:04)
[2024-01-26] MEDS: oxyCODONE HCL IR 5 MG TAB (IMMEDIATE RELEASE) PO PRN (09:05)
[2024-01-26] MEDS: ASPIRIN 81 MG ECTAB PO SCH (09:42)
[2024-01-26] MEDS: DULoxetine HCL 30 MG CAP PO SCH (09:42)
[2024-01-26] MEDS: CeleBREX 200 MG CAP PO SCH (09:42)
[2024-01-27] MEDS: ONDANSETRON INJ 2 MG/ML 2 ML VIAL IV PRN (06:43)
--- NOTE | 2024-01-27 08:35 | Orthopedic Progress Note ---
Date of Service January 27, 2024 Assessment & Plan (1) Acute postoperative anemia due to expected blood loss: Plan: Patient's blood pressure and pulse are much improved from yesterday as noted in the vital signs above. She has much more color and is no longer has orthostatic type symptoms and has been able to ambulate. (2) Degenerative joint disease of right hip: Plan: Patient's pain control is much improved. She is doing very well. She will be discharged to home today with home health with [facility] we are adding Cymbalta 20 mg twice daily and some oxycodone as needed. She will follow-up in the office in 2 weeks time Admission and Anticipated Discharge Date Admission Date: January 25, 2024 Subjective Postoperative day #2 right total hip replacement Patient reports feeling much better today. She denies any pain at all. She was up and ambulatory last evening. She is awake alert and oriented at the bedside and offers no complaints today. She is very pleased with the change of events and how she is feeling. Physical Exam Physical Exam: Patient is examined at the bedside. Her edmundo dressing is clean and with 1 small spot but overall clean and dry. She has mild swelling and bruising of her thigh but her thigh and calf are very soft. Her hip is located. She is neurologically and vascularly intact and has minimal discomfort with active range of motion. Results & Data Vital Signs (Past 12 Hours) Vital Signs Temp Pulse Resp BP Pulse Ox O2 Del Method 01/27/24 07:57 Room Air 01/27/24 07:12 36.7 C 70 16 110/58 L 96 Room Air
[2024-01-27 09:07] LABS: Hematocrit (blood only) 26.4 % (37.0-47.0); Hemoglobin 9.1 g/dl (12.0-16.0)
--- NOTE | 2024-01-31 10:45 | Discharge Summary ---
Date of Service January 31, 2024 Admission HPI Per Admitting Provider Patient is a 68-year-old female with greater than 1 year history of right hip and groin pain. The pain has been worse over the past 3 months and is associated with marked decrease in range of motion decreased standing and walking tolerance. She requires a cane for all ambulation. She has failed nonsteroidal anti-inflammatories and has had a recent MRI which shows severe femoral head and acetabular edema with subchondral insufficiency fracture. She is admitted for elective hip replacement Admission Exam Per Admitting Provider Physical Exam: Weight 50 kg BMI 19 General: Small statured thin woman who appears her stated age HEENT: NCAT, EOMI, PERRLA. Neck: Negative JVD or bruits Heart: Regular rate and rhythm no murmurs appreciated at this time. Lungs: Breath sounds clear and present in all parrish Abdomen: Flat soft nontender bowel sounds are positive Extremities the right hip is actually 78 mm longer than the left passive range of motion is 5 to 85 degrees flexion -15 degrees internal rotation all which reproduces groin pain. There is significant pelvic obliquity with scoliosis which is fixed. Neurological and vascular: Intact Principal Diagnosis Right Hip Djd Discharge Data Allergies Allergy/AdvReac Type Severity Reaction Status Date / Time No Known Allergies Allergy Verified 01/25/24 05:29 Procedures Performed Operation Date: 01/25/24 07:15 Actual Procedures p Right Total Hip Replacement - Anterior Approach(Right) - Jesse Russell MD Ordered Studies 01/25/24 07:00 FL hip RT 1V Routine Hospital Course (1) Acute postoperative anemia due to expected blood loss: (2) Degenerative joint disease of right hip: Patient: FLETCHER REDMOND Admit Date: 01/25/24 MR#: [id number] Att Phy: Jesse Russell MD Acct ID: [id number] Keren Phy: Muriel Pagan MD Date: 1955 [facility] Phy: Age: 68 Location: 3E Sex: F Room/Bed: E316-1 cc: ~ *NOTICE TO RECEIVING LIBERTARIAN/AGENCY This information is strictly Confidential and protected under [place] law. [place] law prohibits you from making any further disclosure of this information unless further disclosure is expressly permitted by the written consent of the person to whom it pertains or is authorized by law. A general authorization for the release of medical or other information is not sufficient for this purpose. Hospital accepts no responsibility if the information is made available to any other person, INCLUDING THE PATIENT. Date of Service January 26, 2024 Assessment & Plan (1) Degenerative joint disease of right hip: Plan: patient has a history of anxiety. She was immediately hypotensive at the beginning of her surgery yesterday and really had only an estimated blood loss of about 150 cc. I suspect that she was hemoconcentrated prior to surgery. She did receive a lot of fluids during surgery and after surgery in order to try to get her blood count up. I suspect that her blood count today is due to hemodilution but she is also hypotensive and tachycardic. She is also quite emotional. Today we will type and cross and transfuse her 2 units of blood. We are also going to work on pain control by adding Tylenol Celebrex oxycodone and Cymbalta. Will reevaluate the patient in 24 hours in hopes that her status has improved. (2) Acute postoperative anemia due to expected blood loss: Plan: See above Admission and Anticipated Discharge Date Admission Date: January 25, 2024 Subjective Postoperative day #1 right total hip replacement Patient reports a very painful night. She is quite emotional. She really has not been out of bed. At the time she is sitting at the bedside eating breakfast. Physical Exam Physical Exam: Patient appears pale. She complains of hip pain with movement. Her dressing is clean dry and intact there is mild swelling and mild bruising. Her hip is located her leg lengths are equal and she is neurologically and vascularly intact. Results & Data Vital Signs (Past 12 Hours) Vital Signs Temp Pulse Resp BP Pulse Ox O2 Del Method 01/26/24 07:55 Room Air 01/26/24 07:03 37.1 C 95 H 16 95/56 L 95 Room Air 01/26/24 03:10 36.9 C 79 16 103/64 96 Room Air Laboratory Results Hemoglobin is 6.7 Signed By: <Electronically signed by Jesse Russell MD> 01/26/24 0901 Date of Service January 27, 2024 Assessment & Plan (1) Acute postoperative anemia due to expected blood loss: Plan: Patient's blood pressure and pulse are much improved from yesterday as noted in the vital signs above. She has much more color and is no longer has orthostatic type symptoms and has been able to ambulate. (2) Degenerative joint disease of right hip: Plan: Patient's pain control is much improved. She is doing very well. She will be discharged to home today with home health with [employer] we are adding Cymbalta 20 mg twice daily and some oxycodone as needed. She will follow-up in the office in 2 weeks time Total Time Total Time Spent Total Time Spent (In Minutes): 10 Discharge Plan Discharge Items Patient Disposition: Home - Home Health Services Reason For Visit: POST SURGICAL CARE Discharge Diagnosis: Right Hip Osteoarthritis Activity: Per Instructions section Weightbearing: Full weightbearing Non-emergency contact: Surgeon Call non-emergency contact if: you have any medication questions, your pain is not controlled, your temperature is above 101.5, your wound has increased redness and your wound has increased drainage Follow-up/Referrals: [facility] [Outside] (as per surgeon's office ) Jesse Russell MD [Surgeon] - (Follow up with Dr. Russell or his PA in 2 weeks from the day of surgery for your first post operative visit. ) Muriel Pagan MD [Primary Care Provider] - Diet: Regular Addtl Attending Provider Instructions: DR. WEBB POST-OP INSTRUCTIONS FOR TOTAL HIP ARTHROPLASTY PLEASE REVIEW PRIOR TO SURGERY Day of Surgery You will be admitted and meet the nursing and anesthesia team. Dr. Russell will see you and sign your operative side. Anesthesia will place your spinal anesthetic in the pre-op area Your surgery will be performed and last approximately 1 2 hours. Upon waking, you will notice a dressing and ice pack on your hip. You will remain in the recovery room for 1 2 hours, then be transferred to your room in the ambulatory surgical area if you are to go home the same day as your surgery or transferred to the orthopedic floor if you will be staying overnight. Most of Dr. Webb total hip patients go home the same day as surgery. This depends on how well you feel. Patients generally seem to feel better in their own home environment, and the risk of exposure to bad bugs is much lower. (Your post-operative medications will be sent to your pharmacy approximately 1-2 days prior to your procedure) Day 1 post-op (if you have an overnight stay in the hospital) You will have bloodwork drawn in the morning Physical therapy will evaluate you in the morning. You will start getting out of bed and ambulating with a walker. They will instruct you on hip motion exercises. Use your cold packs as instructed. This will decrease swelling and minimize pain. fiscal services manager will discuss your discharge plan. Discharge will generally be around 11am Day 1 post-op (all patients) You will be taking Aspirin 81mg twice for 4 weeks to decrease the risk of a blood clot. You will most likely have a drain and a MEREDITH (superficial wound VAC) dressing post-operatively. This will keep your incision dry as well as aid in early healing. The batteries will wear out and the VAC will lose suction around day 6 - 7 post-op. At that time, you may turn off the device and disconnect from the dressing. You must keep the dressing on until your first post- operative visit with Dr. Russell. If the dressing appears to be saturated, please call our office. Day 2 14 post-op You will have a home nurse visit to assess your status and remove your drain on post-op day 2. You are permitted to shower immediately with the VAC. Do not soak the dressing let the shower flow on your opposite side, and pat dry the plastic. Once the dressing has been removed, you may shower normally with the incision exposed. Do not rub the area simply let soapy water run over the incision and lightly pat dry. Therapy will begin on post-op day 3. Your therapy prescription will be sent to your home therapy company/therapist You should continue doing your home exercises Week 2 post-op and forward You will have your first post-op appointment 2 weeks after surgery which should have been scheduled for you by our office. This appointment will be to check your incision, progression of therapy and pain control. Xrays will be taken to evaluate the prosthesis. You will continue to use a cane or a walker until you feel safe enough to stop using it. You will have a 6-week post-op appointment which should have been scheduled for you by our office. Xrays will be taken to evaluate the prosthesis. You will continue to advance range of motion. By 3 to 4 months after surgery, you should have almost full range of motion and may resume most activities. You may have some pain around the hip with certain activities this is completely normal. You will be scheduled for a 1 year post-op appointment to assess your outcome (sooner if Dr. Russell feels necessary). Pain: The immediate post-op period after hip replacement surgery can be painful. However, the degree and frequency of the pain is generally much less than knee replacement surgery. You should take your pain medicine as you need it, especially prior to physical therapy and bedtime. Your pain will decrease and you may transition to a milder pain medicine (with less side effects, such as Tylenol) as soon as possible. It is common to have pain at night that interferes with sleep this can last for several months. Pain medicines can cause nausea and constipation do not take more than you need. You may be prescribed one or more of the following MEDICATIONS : 1. Celebrex this controls inflammation and makes pain medications mor effective it will be taken once or twice a day 2. Tylenol a pain medicine that can help to decrease your pain you should take 1000mg three times a day 3. Tramadol a pain medicine that can be taken every 4-6 hours (instead of Oxycodone) as needed to control your pain 4. Oxycodone a VERY strong pain medicine that can be taken every 4-6 hours (instead of Tramadol) as needed to control your pain. This medication has the most side effects and is usually not necessary for hip replacements. 5. Aspirin 81mg blood thinning medication to help minimize the risk of development of blood clots unfortunate side effects of pain medicine include nausea and constipation if you experience these issues or have any questions about your post-op medications, call [facility] [place] for assistance/advice on how to manage these issues Hip replacement surgery does not require a lot of aggressive physical therapy. Learning to walk safely and obeying hip precautions are most important. While in the hospital, you will be shown a series of home exercises you should perform these exercises 3 4 times daily in addition to physical therapy. After the completion of home therapy (approx.. 2 weeks), most therapy exercises can be done on your own. You should walk several times a day. Try not to be standing for more than an hour at a time during the first 4 weeks post-op as you may experience more swelling. If you develop swelling, you need to elevate your legs/feet at or above the level of your heart. You may progress from a walker to a cane to walking independently as you feel comfortable. Unless it is an emergency, YOUR ARE NOT PERMITTED TO HAVE ANY DENTAL CLEANING/WORK UNTIL 3 MONTHS AFTER SURGERY. You will be required to take an antibiotic prior to any dental cleaning or dental work in order to prevent your joint prothesis from getting infected. This medication is a one time per visit dose to be taken one hour prior to appointment. You may call our office for this prescription or your dentist may be willing to prescribe the medication. Remember to contact [facility] [place] if you develop any signs of infection which include increased swelling, pain, redness, drainage from incision, warmth, fever, chills or severe pain unrelieved by pain medication. If you develop any chest pain or shortness of breath, you should proceed immediately to the nearest Emergency Room. It is normal to run a low-grade fever after surgery. If your fever is consistent at 101.0 or higher, you will need to contact the office. Pending Studies at Discharge: No Stand-Alone Forms: Anesthesia/Sedation, Adult, [facility], Pain - Opioid Pain Management Medications and DC Order Prescriptions: Continued temazepam 7.5 mg Capsule 7.5 mg PO HS PRN (Reason: Sleep) calcium carbonate [Calcium 600] 600 mg calcium (1,500 mg) Tablet 750 mg PO DAILY biotin 5 mg Tablet 5 mg PO DAILY cholecalciferol (vitamin D3) [Vitamin D3] 25 mcg (1,000 unit) Tablet 25 mcg PO DAILY Discontinued meloxicam 7.5 mg Tablet 7.5 mg PO BID acetaminophen [Tylenol Ex Str Arthritis Pain] 500 mg Tablet 1,000 mg PO Q6H PRN (Reason: Pain) Dave/Other Patient Handouts: DVT Post Op Prevention, Hip Replace Post Op, Hip Replace Resuming Activity, Hip Replace Home Recovery Admission Data Admit Date/Time: 01/25/24 14:21 Attending Provider: Jesse Russell Admit Provider: Jesse Russell Primary Care Provider: Muriel Pagan Other Interventions: Discharge Summary Assessment (RN) Last Done: 01/27/24 09:45
== END 2024-01-27 11:15 | disposition home health service (06) ==
LOC: ASU 05:01 → 3E 05:01

== ENCOUNTER 2024-11-13 10:35 | Inpatient (IN) ==
--- NOTE | 2024-11-13 11:29 | XRay Report ---
XR chest 1V portable CLINICAL HISTORY: Sepsis TECHNIQUE: Single frontal radiograph of the chest was obtained. Comparison: Comparison is made to chest radiograph 01/05/2024 FINDINGS: No lines and tubes are seen. The cardiomediastinal silhouette is normal. Bilateral lower lung predomi nant airspace opacities are seen. No evidence of pleural effusion or pneumothorax. IMPRESSION: Bilateral lower lung predominant airspace opacities which may represent atelectasis, pneumonia, and/o r aspiration. ACT 112: Negative or not required by law. Electronically signed by: Ranjeet Saldivar M.D. 11/13/2024 11:28 AM
[2024-11-13] MEDS: SODIUM CHLORIDE 0.9% 1,000 ML IV SCH ×2 (12:01→17:58)
[2024-11-13 12:11] LABS: Hematocrit (blood only) 40.5 % (37.0-47.0); Mean Corpuscular Hemoglobin 30.6 pg (25.0-34.0); Mean Corpuscular Hgb Conc 34.6 g/dL (32.0-36.0); Mean Corpuscular Volume 88.6 fL (80.0-100.0); Mean Platelet Volume 9.8 fL (9.4-12.4); Platelet Count 151 K/uL (130-400); RDW Coefficient of Variation 14.1 % (11.5-14.5); RDW Standard Deviation 45.3 fL (36.4-46.3); Red Blood Count 4.57 M/uL (4.20-5.40)
--- NOTE | 2024-11-13 12:11 | Emergency Department Note ---
History of Present Illness General Chief complaint: Flu Like Symptoms Stated complaint: SORE THROAT, COUGH, WEAK, NAUSEA, DEHYDRATION Time Seen by Provider: 11/13/24 11:01 Source: patient Mode of arrival: ambulatory Limitations: no limitations History of Present Illness Maximum Pain Intensity: 3 Patient is a 69-year-old female who presents with subjective fevers, chills, body aches, sore throat cough and congestion for 3 days. She also notes some shortness of breath associated with symptoms. No known recent exposure to any illnesses. Denies any lightheadedness, dizziness, chest pain, nausea, vomiting, abdominal pain. Not an active or former smoker. No history of underlying lung disease. Home Medications Medication Instructions Recorded Confirmed Type biotin 5 mg tablet 5 mg PO UD 01/04/24 11/13/24 History calcium carbonate (Calcium 600) 750 mg PO DAILY 01/04/24 11/13/24 History cholecalciferol (vitamin D3) 25 25 mcg PO DAILY 01/04/24 11/13/24 History mcg (1,000 unit) tablet (Vitamin D3) temazepam 7.5 mg capsule (Restoril) 7.5 mg PO HS PRN Sleep 01/04/24 11/13/24 History Allergies Allergy/AdvReac Type Severity Reaction Status Date / Time No Known Allergies Allergy Verified 01/25/24 05:29 Past Med/Surg History Problem List (Updated 11/13/24 @ 14:46 by Otis Mcneil MD) Pneumonia (Acute) Uterine anomaly (Acute) Osteoporosis (Acute) Previously on Alendronate (not currently) Cancer (Acute) Skin cancer s/p excision (shoulder) Anxiety (Acute) Medical History Brain bleed SAH/subdural hematoma 08/2019 (after trauma, fell off ladder in garage)- had surgery 10/2019 to repair the bleed, "complete resolution" on subsequent 2019 CTS per [facility] [place] PCP records Cardiac murmur Noted 1970s- per patient, no significant valvular disease noted on 2006 exercise stress echo No murmur noted during physical exams at PAT visit 01/05/24 + 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 Remaining ROS noncontributory Physical Exam Vital Signs Vital Signs - 24 hr 11/13/24 10:55 11/13/24 11:46 11/13/24 12:03 Temperature 38.8 C H Temperature Source Skin Pulse Rate 120 H 88 Pulse Rate [Apical] 79 Pulse Rhythm Pulse Rhythm [Apical] Regular Respiratory Rate 20 22 Respiratory Effort / Characteristics Non-Labored Spontaneous Non-Labored Spontaneous Respiratory Depth Normal Normal Respiratory Pattern Regular Regular Blood Pressure 113/60 Blood Pressure [Right Arm] 107/57 L Blood Pressure Mean 77 Blood Pressure Mean [Right Arm] 73 Blood Pressure Position [Right Arm] Lying Pulse Oximetry 99 95 Oxygen Delivery Method Room Air Nasal Cannula Oxygen Flow Rate 2 Sepsis Recent Fever Within 48 Hours Yes Sepsis New/Unexplained Change in Mental Status N/A Sepsis Action Taken by Nursing No Action Required 11/13/24 12:03 11/13/24 14:02 Temperature 38.7 C H Temperature Source Oral Pulse Rate 81 Pulse Rate [Apical] 76 Pulse Rhythm Regular Pulse Rhythm [Apical] Respiratory Rate 22 23 Respiratory Effort / Characteristics Non-Labored Spontaneous Respiratory Depth Normal Respiratory Pattern Regular Blood Pressure Blood Pressure [Right Arm] 123/59 L Blood Pressure Mean Blood Pressure Mean [Right Arm] 80 Blood Pressure Position [Right Arm] Lying Pulse Oximetry 95 95 Oxygen Delivery Method Nasal Cannula Nasal Cannula Oxygen Flow Rate 2 2 Sepsis Recent Fever Within 48 Hours Sepsis New/Unexplained Change in Mental Status Sepsis Action Taken by Nursing see below Constitutional WD/WN, vitals as above Respiratory Normal effort. No evidence of accessory muscle use. Bibasilar rales noted on exam Cardiovascular Rate/Rhythm: + tachycardic Heart Sounds: normal S1 and normal S2 Vessels: no JVD Extremities: normal capillary refill; no edema Gastrointestinal (Abdomen) normal bowel sounds, soft, nontender, no hepatosplenomegaly Course Administered Medications Discontinued Medications Sodium Chloride (Nss) 1,000 mls @ 999 mls/hr IV .Q1H1M [place] Stop: 11/13/24 12:15 Last Infusion: 11/13/24 14:11 Dose: Infused Documented By: Admin: 11/13/24 12:01 Dose: 999 mls/hr Documented By: SLIM Ceftriaxone Sodium (Rocephin) 1,000 mg in 50 mls @ 100 mls/hr IV NOW STA Stop: 11/13/24 13:59 Last Infusion: 11/13/24 14:11 Dose: Infused Documented By: Admin: 11/13/24 13:36 Dose: 100 mls/hr Documented By: SLIM Ondansetron HCl (Ondansetron Inj 2 Mg/Ml 2 Ml Vial) 4 mg IV NOW STA Stop: 11/13/24 13:31 Last Admin: 11/13/24 13:36 Dose: 4 mg Documented By: SLIM Medical Decision Making Differential Diagnosis COVID-19/influenza, viral URI, pneumonia Medical Records Attestation: I reviewed the patient's medical records. Home Medications Current Medication List: was personally reviewed by me Laboratory Data Attestation: I reviewed the patient's lab results. 11/13/24 11:35 11/13/24 11:35 Lab Results 11/13/24 11/13/24 Range/Units 11:35 11:54 WBC 5.18 (4.8-10.8) K/ul RBC 4.57 (4.20-5.40) M/uL Hgb 14.0 (12.0-16.0) g/dl Hct 40.5 (37.0-47.0) % MCV 88.6 (80.0-100.0) fL MCH 30.6 (25.0-34.0) pg MCHC 34.6 (32.0-36.0) g/dL RDW Std Deviation 45.3 (36.4-46.3) fL RDW Coeff of Janina 14.1 (11.5-14.5) % Plt Count 151 (130-400) K/uL MPV 9.8 (9.4-12.4) fL Immature Gran % (Auto) 0.2 % Neut % (Auto) 80.0 % Lymph % (Auto) 15.4 % Wilson % (Auto) 4.2 % Eos % (Auto) 0.0 % Baso % (Auto) 0.2 % Neut # (Auto) 4.14 (1.40-6.50) K/uL Lymph # (Auto) 0.80 L (1.20-3.40) K/uL Wilson # (Auto) 0.22 (0.11-0.59) K/uL Eos # (Auto) 0.00 (0.00-0.50) K/uL Baso # (Auto) 0.01 (0.00-0.20) K/uL Immature Gran # (Auto) 0.01 (0.01-0.20) K/uL Hyposegmented Neuts 1+ Toxic Vacuolation 1+ Sodium 135 L (136-145) mmol/L Potassium 3.5 (3.5-5.1) mmol/L Chloride 99 (98-107) mmol/L Carbon Dioxide 26 (21-32) mmol/L Anion Gap 10 (3-11) BUN 27 H (6-23) mg/dl Creatinine 0.84 (0.6-1.2) mg/dl Est Cr Clr Drug Dosing 54.6 ml/min eGFR 75.65 BUN/Creatinine Ratio 32.1 H (10-20) Glucose 103 H (70-99(Fasting)) mg/dl Lactate 1.6 (0.4-2.0) mmol/L Calcium 8.9 (8.6-10.3) mg/dl Magnesium 1.5 L (1.7-2.4) mg/dl Total Bilirubin 0.8 (0.2-1.0) mg/dl Direct Bilirubin 0.2 (0-0.2) mg/dl AST 36 (13-39) U/L ALT 23 (7-52) U/L Alkaline Phosphatase 75 (34-104) U/L Troponin I High Sens 9.6 (0-14) pg/ml Total Protein 7.2 (6.0-8.3) gm/dl Albumin 4.3 (3.4-5.0) gm/dl Procalcitonin 10.70 H (0-0.5) ng/ml Adenovirus (PCR) Not Detected (NotDetected) B. pertussis DNA (PCR) Not Detected (NotDetected) B.parapertussis DNA PCR Not Detected (NotDetected) C. pneumoniae DNA (PCR) Not Detected (NotDetected) Coronavirus OC43 (PCR) Not Detected (NotDetected) Coronavirus HKU1 (PCR) Not Detected (NotDetected) Coronavirus 229E (PCR) Not Detected (NotDetected) SARS-CoV-2 (PCR) Not Detected (NotDetected) Coronavirus NL63 (PCR) Not Detected (NotDetected) Human Metapneumovir PCR DETECTED A (NotDetected) Influenza Type A (PCR) Not Detected (NotDetected) Influenza Type B (PCR) Not Detected (NotDetected) M. pneumoniae (PCR) Not Detected (NotDetected) Parainfluenza 1 (PCR) Not Detected (NotDetected) Parainfluenza 2 (PCR) Not Detected (NotDetected) Parainfluenza 3 (PCR) Not Detected (NotDetected) Parainfluenza 4 (PCR) Not Detected (NotDetected) RSV (PCR) Not Detected (NotDetected) Entero/Rhino (PCR) Not Detected (NotDetected) Imaging Data Radiologist's Impression: Chest X-Ray 11/13/24 11:03 XR chest 1V portable CLINICAL HISTORY: Sepsis TECHNIQUE: Single frontal radiograph of the chest was obtained. Comparison: Comparison is made to chest radiograph 01/05/2024 FINDINGS: No lines and tubes are seen. The cardiomediastinal silhouette is normal. Bilateral lower lung predominant airspace opacities are seen. No evidence of pleural effusion or pneumothorax. IMPRESSION: Bilateral lower lung predominant airspace opacities which may represent atelectasis, pneumonia, and/or aspiration. ACT 112: Negative or not required by law. Electronically signed by: Ranjeet Saldivar M.D. 11/13/2024 11:28 AM ECG Data Attestation: I personally reviewed and interpreted this ECG as follows: Indication: + SOB/dyspnea Rate (beats per minute): 84 Rhythm: + normal sinus ECG Intervals/blocks: + Normal QRS, + Normal QT and + Normal GA ECG [place]: + Normal ECG ST segments: + ST depression (Lateral/Inferior leads ) Comparison ECG Date: no prior available Blood Pressure Blood Pressure Findings: Normal blood pressure MDM Narrative Patient is a 69-year-old female presents with cough, congestion, shortness of breath. She has hypoxic here in the ED on 2 L of nasal cannul. This is a new requirement for the patient. Patient also febrile and tachycardic on arrival. Lab work was obtained. No cytosis noted. Lactate within normal limits. CMP nonconcerning. Respiratory panel positive for metapneumovirus. Chest x-ray was independently reviewed. Bibasilar opacities noted. Findings likely viral however will cover with Rocephin due to new oxygen requirement and possible overlying bacterial pneumonia. Patient stable for hospital admission on 2 L of nasal cannula. Impression & Plan Pneumonia Discharge Plan Visit Data Chief Complaint: Flu Like Symptoms Stated Complaint: SORE THROAT, COUGH, WEAK, NAUSEA, DEHYDRATION ED Provider: Otis Mcneil Discharge Problem: Pneumonia Forms Stand Alone Forms: [facility] Prescriptions Prescriptions: No Action temazepam [Restoril] 7.5 mg Capsule 7.5 mg PO HS PRN (Reason: Sleep) calcium carbonate [Calcium 600] 600 mg calcium (1,500 mg) Tablet 750 mg PO DAILY biotin 5 mg Tablet 5 mg PO UD Rx Instructions: 5 mg po daily. pt isnt sure if she still takes this medicatiom cholecalciferol (vitamin D3) [Vitamin D3] 25 mcg (1,000 unit) Tablet 25 mcg PO DAILY Referrals Referrals: Elisa Graham MD [Primary Care Provider] -
[2024-11-13 12:25] LABS: Albumin Level 4.3 gm/dl (3.4-5.0); Bilirubin Direct 0.2 mg/dl (0-0.2); Bilirubin,Total 0.8 mg/dl (0.2-1.0); Calcium 8.9 mg/dl (8.6-10.3); Magnesium 1.5 mg/dl (1.7-2.4); Potassium 3.5 mmol/L (3.5-5.1)
[2024-11-13 12:31] LABS: BUN Creatinine Ratio 32.1 (10-20); Creatinine Clr Calc Pharmacy 54.6 ml/min; Total Protein 7.2 gm/dl (6.0-8.3)
[2024-11-13 12:40] LABS: White Blood Count 5.18 K/ul (4.8-10.8)
[2024-11-13 12:41] LABS: Basophils # (auto) 0.01 K/uL (0.00-0.20); Basophils % (auto) 0.2 %; Immature Granulocytes # (auto) 0.01 K/uL (0.01-0.20); Immature Granulocytes % (auto) 0.2 %; Lymphocytes % (auto) 15.4 %; Monocytes # (auto) 0.22 K/uL (0.11-0.59); Monocytes % (auto) 4.2 %; Neutrophils # (auto) 4.14 K/uL (1.40-6.50); Toxic Vacuolation 1+
[2024-11-13 12:50] LABS: Troponin I High Sensitivity 9.6 pg/ml (0-14)
[2024-11-13 13:24] LABS: Adenovirus PCR Not Detected (NotDetected); Bordetella parapertussis PCR Not Detected (NotDetected); Bordetella pertussis PCR Not Detected (NotDetected); Chlamydia pneumoniae PCR Not Detected (NotDetected); Coronavirus 229E PCR Not Detected (NotDetected); Coronavirus CoV-2 (COVID19)PCR Not Detected (NotDetected); Coronavirus HKU1 PCR Not Detected (NotDetected); Coronavirus NL63 PCR Not Detected (NotDetected); Coronavirus OC43PCR Not Detected (NotDetected); Human Metapneumovirus PCR DETECTED (NotDetected); Influenza A PCR Not Detected (NotDetected); Influenza B PCR Not Detected (NotDetected); Mycoplasma pneumoniae PCR Not Detected (NotDetected); Parainfluenza Virus 1 PCR Not Detected (NotDetected); Parainfluenza Virus 2 PCR Not Detected (NotDetected); Parainfluenza Virus 3 PCR Not Detected (NotDetected); Parainfluenza Virus 4 PCR Not Detected (NotDetected); Respiratory Syncytial VirusPCR Not Detected (NotDetected); Rhinovirus/Enterovirus PCR Not Detected (NotDetected)
[2024-11-13] MEDS: ONDANSETRON INJ 2 MG/ML 2 ML VIAL IV STA (13:36)
[2024-11-13] MEDS: cefTRIAXone SODIUM 1,000 MG/50 ML BAG IV STA (13:36)
--- NOTE | 2024-11-13 14:36 | History & Physical Report ---
Date of Service November 13, 2024 Assessment & Plan (1) Pneumonia due to human metapneumovirus: Plan: Patient is 69-year-old female with PMH traumatic subdural presented to ER with c/o productive cough, congestion, myalgias, fatigue, nausea, SOB x 3 days. In ER T: 38.8 C, P: 120, R: 20, BP: 113/60, reported to be hypoxic during ER course, on 2L O2 via NC with sat 95%. No leukocytosis, lactate WNL, procalcitonin: 10.7. +Human metapneumovirus on respiratory [employer] panel CXR: Bilateral lower lung predominant airspace opacities which may represent atelectasis, pneumonia, and/or aspiration. In ER given 1L NSS, Zofran, Rocephin IV Isolation droplet precautions Will obtain KUB given reported right-sided discomfort several days ago which she reports improvement Clear liquid diet for now Supplemental oxygen, wean when able Mucinex. Incentive spirometry, flutter valve Duonebs Rocephin, doxycycline (2) Hypomagnesemia: Plan: magnesium: 1.5 Replace and monitor DVT Prophylaxis Lovenox SQ Admit med/surg Full Code as per discussion with pt Follows with Dr Graham for routine care Pt was seen and care coordinated with Dr Castillo. See addendum I spent a total of 65 minutes reviewing notes, outpatient records, labs, medication, coordinating, documenting and providing care for this patient excluding time spent in the performance of separately billed services. History of Present Illness Chief Complaint: cough Primary Care Provider: Elisa Graham MD Patient is 69-year-old female with PMH traumatic subdural presented to ER with c/o cough x 3 days. C/O congestion, cough, SOB, myalgias, generalized weakness. States cough productive yellow. Feeling SOB today. Had nausea and vomiting past 2 days. States feels wiped out. Not eating or drinking. States couple of days ago some discomfort to right lower abdomen which has decreased and reports is improved today. Last BM several days ago, states usually has BM every couple of days. Granddaughter had URI symptoms prior to her onset of symptoms. Did not take temperature at home and was unaware of fever. Denies chills, diaphoresis, hematemesis, melena, hematochezia, DEMARCO, dizziness, syncope, vision changes, neck pain, CP, palpitations, hemoptysis, extremity edema, rashes, urinary symptoms. Allergies Allergy/AdvReac Type Severity Reaction Status Date / Time No Known Allergies Allergy Verified 01/25/24 05:29 Home Medications Medication Instructions Recorded Confirmed Type biotin 5 mg tablet 5 mg PO UD 01/04/24 11/13/24 History calcium carbonate (Calcium 600) 750 mg PO DAILY 01/04/24 11/13/24 History cholecalciferol (vitamin D3) 25 25 mcg PO DAILY 01/04/24 11/13/24 History mcg (1,000 unit) tablet (Vitamin D3) sertraline 50 mg tablet 50 mg PO DAILY 11/13/24 11/13/24 History Past Med/Surg History Problem List Hypomagnesemia Pneumonia due to human metapneumovirus Pneumonia (Acute) Uterine anomaly (Acute) Osteoporosis (Acute) Previously on Alendronate (not currently) Cancer (Acute) Skin cancer s/p excision (shoulder) Anxiety (Acute) Medical History Acute postoperative anemia due to expected blood loss Degenerative joint disease of right hip Encounter for pre-operative examination Brain bleed SAH/subdural hematoma 08/2019 (after trauma, fell off ladder in garage)- had surgery 10/2019 to repair the bleed, "complete resolution" on subsequent 2019 CTS per [facility] PCP records Cardiac murmur Noted 1970s- per patient, no significant valvular disease noted on 2006 exercise stress echo No murmur noted during physical exams at PAT visit 01/05/24 + S PCP visit 11/2023 History of COVID-2020 Insomnia Kidney stones Hx Surgical History History of cystoscopy History of colonoscopy Hx of hernia repair History of tooth extraction History of tonsillectomy Hx of brain surgery 10/2019 (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) History of Mohs micrographic surgery for skin cancer Social History Smoking Status: Never smoker Second Hand Exposure: No; Do You Dip or Chew Tobacco: No; Hx Alcohol Use: No Hx Substance Use: No Preferred Language: Khmer Communication Ability: Effective Title Supervisor Required: No Beliefs That Will Affect Care: None Current Living Situation: Other Current Living Situation Comment: Daughter and son in law Feels Safe at Home: Yes Assistive Devices: Walker Review of Systems Review of Systems: All systems reviewed & are unremarkable except as noted in HPI & below Physical Exam Physical Exam: General: +ill appearing, WDWN Head: normocephalic, atraumatic Eyes: conjunctiva non-injected, anicteric ENT: normal inspection external ears, nose, mucous membranes dry Neck: supple, trachea midline, non-tender Lungs: no respiratory distress on 2L via NC, mild rhonchi CV: RRR, no murmur, no pretibial edema Abd: normal BS, soft, non-tender to palpation Ext: no cyanosis, no calf tenderness Neuro: +tired but A&O x 3, no focal deficits noted, normal affect Skin: warm, dry Results & Data Results & Data Vital Signs (Past 12 Hours) Vital Signs Temp Pulse Pulse Resp BP BP Pulse Ox 11/13/24 14:02 38.7 C H 76 23 123/59 L 95 11/13/24 12:03 81 22 95 11/13/24 12:03 79 22 107/57 L 95 11/13/24 11:46 88 11/13/24 10:55 38.8 C H 120 H 20 113/60 99 O2 Del Method O2 Flow Rate 11/13/24 14:02 Nasal Cannula 2 11/13/24 12:03 Nasal Cannula 2 11/13/24 12:03 Nasal Cannula 2 11/13/24 11:46 11/13/24 10:55 Room Air Laboratory Results Short CBC 11/13/24 Range/Units 11:35 WBC 5.18 (4.8-10.8) K/ul Hgb 14.0 (12.0-16.0) g/dl Hct 40.5 (37.0-47.0) % Plt Count 151 (130-400) K/uL BMP 11/13/24 11:35 Sodium 135 L Potassium 3.5 Chloride 99 Carbon Dioxide 26 BUN 27 H Creatinine 0.84 Glucose 103 H Calcium 8.9 Liver Function 11/13/24 Range/Units 11:35 Total Bilirubin 0.8 (0.2-1.0) mg/dl Direct Bilirubin 0.2 (0-0.2) mg/dl AST 36 (13-39) U/L ALT 23 (7-52) U/L Alkaline Phosphatase 75 (34-104) U/L Albumin 4.3 (3.4-5.0) gm/dl Diagnostic Findings Chest X-Ray 11/13/24 11:03 XR chest 1V portable CLINICAL HISTORY: Sepsis TECHNIQUE: Single frontal radiograph of the chest was obtained. Comparison: Comparison is made to chest radiograph 01/05/2024 FINDINGS: No lines and tubes are seen. The cardiomediastinal silhouette is normal. Bilateral lower lung predominant airspace opacities are seen. No evidence of pleural effusion or pneumothorax. IMPRESSION: Bilateral lower lung predominant airspace opacities which may represent atelectasis, pneumonia, and/or aspiration. ACT 112: Negative or not required by law. Electronically signed by: Ranjeet Saldivar M.D. 11/13/2024 11:28 AM Supervising Physician Co-Signing Physician Notes Pt seen and examined by me, care coordinated w/ Elin Huggins PA-C, pls refer to the note above for further detail. 69 yo F with hx of traumatic subdural presented to ER with c/o cough x 3 days. C/O congestion, cough, SOB, myalgias, generalized weakness. States cough productive yellow. Feeling short of breath today. Had nausea and vomiting past 2 days. States couple of days ago some discomfort to right lower abdomen which has decreased and reports is improved today. Last BM several days ago, states usually has BM every couple of days. Granddaughter had URI symptoms prior to her onset of symptoms. Did not take temperature at home and was unaware of fever. Pt laying in bed, appears ill. She is awake, alert able to answer questions, 2 daughters present at the bedside and also provide history. Lungs + rhonchi , + cough with deep inspiration, heart sounds regular, abdomen soft , mildly tender at rlq. no LE edema, moves extremities. Given Rocephin in the ED. will cont. add doxy, obtain KUB, replace Mag. MD Anna
[2024-11-13] MEDS ORDERED: ACETAMINOPHEN 325 MG TAB PO STA (15:17)
[2024-11-13] MEDS: guaiFENesin 600 MG TABCR PO ONE (15:25)
[2024-11-13] MEDS: ACETAMINOPHEN 325 MG TAB ONE (15:25)
[2024-11-13] MEDS: MAGNESIUM SULFATE / D5W 1 GM/100 ML BAG IV STA (15:25)
[2024-11-13] MEDS: SODIUM CHLORIDE 0.9% 1,000 ML IV ONE (16:32)
[2024-11-13] MEDS: DOXYCYCLINE HYCLATE 100 MG in DEXTROSE 5% MINI-B 100 ML IV STA (16:33)
[2024-11-13] MEDS: ALBUTEROL 0.083% NEBU SOLN 3 ML VIAL NEB ONE (16:33)
--- NOTE | 2024-11-13 16:43 | XRay Report ---
Clinical history: Pain 3 views of the abdomen were obtained Findings: There is mild constipation. There is no sign of bowel obstruction. No renal or ureteral calculi are seen. No foreign body is evident. There is a right hip replacement. There is mild left hip osteoarthritis Impression: Unremarkable abdominal radiographs Electronically signed by Toñito Kelly 11-13-2024 4:42 PM
--- OUTSIDE RECORDS SUMMARY | 2024-11-13 16:55 | External Medical Summary | Summary of Care ---
Author Name Unknown Organization [facility] Address [address] [facility] [place] [address] Phone [phone] Care Team Providers Care Hospital Coordinator Name Role Phone Elisa Graham MD Primary Care Provider [phone] Encounter Details Date Type Department Care Team (Late st Contact Info) Description 09/21/2024 Orders Only Access Center, [place] [address] [facility] Ext *DO NOT REMOVE THIS DEPARTMENT* [place] [id number] Requisition, External Radiology [address] [place] [address] Age-related osteoporosis without current pathological fracture* Allergies No known active allergiesdocumented as of this encounter (statuses as of 09/21/2024) Medications Calcium Carb-Cholecalci ferol 600-800 MG-UNIT Oral Tablet Chewable Take 1 Tab by mouth daily. Active Triamcinolone Acetonide 55 MCG/ACT Nasal Aerosol (Nasacort Allergy 24HR)Indication s:Other insomnia,Other chronic sinusitis,Prima ry snoring Administer 2 Sprays into each nostril at bedtime. 17 mL 5 3 Active Additional Information Patient taking differently:2 [place] Each NostrilPRN, Rhinitis, Reported on 10/17/2023 Biotin 3 MG Oral Tablet Take by mouth. Pt unsure of dosage Active Vitamin D-3 25 MCG (1000 UT) Oral Capsule Unsure dose--dec to 1 every other day from 10/17/2023 1 Capsule 3 Active Temazepam 7.5 MG Oral Capsule (Restoril)Indic ations:Other insomnia Take 1 Capsule by mouth at bedtime. Do not start before July 03, 2024. 30 Capsule 2 4 Active Sertraline HCl 50 MG Oral Tablet (Zoloft) Take 1 Tablet by mouth in the morning. 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 without discogenic back pain or lower extremity pain 08/14/2024 Lumbar facet arthropathy 08/14/2024 S/P total right hip arthroplasty 04/11/2024 Encounter for screening mammogram for breast can cer 04/11/2024 Primary snoring 04/13/2023 Other chronic sinusitis 04/13/2023 [...] 02/07/2019 Hx of nonmelanoma skin cancer 04/15/2011 Overview (12/05/2016): BCC L anterior thigh 05/2015, R shoulder 05/213, recurrent from 2002, R cheek 2002 R thigh Insomnia 11/10/2009 Overview (07/31/2017): ICD-10 update of inactive term History of colonoscopy with polypectomy 06/22/20 07 Overview (06/26/2007): adenomatous tissue-repeat colonoscopy in 5 years documented as of this encounter (statuses as of 09/21/2024) Resolved Problems Problem Noted Date Diagnosed Date Resolved Date Compression fracture of T8 vertebra 09/17/2021 06/21/2022 Traumatic epidural hematoma 09/05/2019 03/17/2021 Hemotympanum 09/05/2019 03/17/2021 Multiple fractures of ribs, left side, init for clos fx 09/05/2019 03/17/2021 Adjustment disorder with depressed mood 11/10/2009 04/13/2023 JO-ANN (generalized anxiety disorder) 11/10/2009 04/13/2023 ADVANCE DIRECTIVE INFORMATION 11/23/2006 01/02/2023 Overview (11/23/2006): Information given to patient. Hemorrhage of rectum and anus 05/07/2003 11/10/2009 Mitral valve disorder 06/29/19982022 documented as of this encounter (statuses as of 09/21/2024) Immunizations Name Administration Dates Next Due COVID-19 mRNA, LNP-s, No Pre serve, 2-Dose Series ([employer]) 09/10/2021,08/12/2021 HEP A - Hepatitis A (Adult > 18 yrs) 04/05/1998, 08/03/1997,08/18/1996 Hepatitis B, 20+ yrs 08/11/1990 Influenza, Whole Virus 09/20/2003,2001,10/07/2001,11/18,07/30/1995 MMR - Measles/Mumps/Rubella Vaccine 01/24/1985 Meningococcal Polysaccharide Vaccine (Menommune) 09/20/2003,04/05/1998,12/28/1992 OPV - Polio Virus Vaccine (Oral) 12/28/1989,0310/1984 PPD 04/05/1998 Pneumococcal Conjugate Vacci ne, 20-valent ([id number]) 01/02/2023 Pneumococcal Polysaccharide PPV23 (Pneumovax) 12/15/2021 Rabies Vaccine (Rabavert) 10/27/2010,10/23/2010 Seasonal Influenza Vac., MDV , IM, 0.5 mL (Fluzone) 07/18/2019,08/16/2018,08/10/2017,10/06,07/17/2014,07/17/2013,07/25/2012 ,08/30/2009 Seasonal Influenza Virus Vac cine, Unspecified Formulation 08/12/2021,07/29/2020,10/06/2015,07/30 Seasonal Influenza, PF, 6 M & above, IM , (FluLaval or Fluzone) 07/06/2022,08/12/2021,07/29/2020 Seasonal Influenza, Quadriva lent, No Preserve, IM 08/09/2023 TD - Tetanus/Diptheria (ADULT) 10/23/2010 TDAP (age 10 and older)(Boostrix) 09/02/2019,10/2011 Typhoid Vaccine Oral (Vivotif) 09/20/2003,1997,07/30/1995 Yellow Fever Vaccine, Live (YF-Vax) 10/30/1995,0 03/30/1989 Zoster Vaccine Recombinant (Shingrix) 01/01/2021 ,08/17/2020 documented [...] money to get more. 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 Answer Date of Assessment Author No 09/02/2019 8:00 PM EST Melisa Call RN * Are you blind or do you have serious difficulty seeing, even when wearing glasses? Answer Date of Assessment Author No 09/02/2019 8:00 PM Melisa Serrato RN * Do you have serious difficulty walking or climbing stairs? (5 years old or older) Answer Date of Assessment Author No 09/02/2019 8:00 PM Melisa Serrato RN * Do you have difficulty dressing or bathing? (5 years old or older) Answer Date of Assessment Author No 09/02/2019 8:00 PM Melisa Serrato RN * Because of a physical, mental, or emotional condition, do you have difficulty doing errands alone such as visiting a doctors office or shopping? (15 years old or older) Answer Date of Assessment Author No 09/02/2019 8:00 PM Melisa Serrato RN documented as of this encounter Mental Status * Because of a physical, mental, or emotional condition, do you have serious difficulty concentrating, remembering, or making decisions? (5 years old or older) Answer Entry Date Author No 09/02/2019 8:00 PM Melisa Serrato RN documented in this encounter Plan of Treatment Upcoming Encounters Date Type Department Care Team (Late st Contact Info) Description 11/07/2024 10:15 AM EST Imaging Radiology [address] [facility] [place] [address] 11/13/2024 11:20 AM EST Office Visit General Internal Medicine [facility] [address] [facility] [place] [address] Elisa Graham MD [address] [place] [address] Scheduled Orders Name Type Priority Associated Diagnoses Orde r Schedule DEXA SCAN/BONE MINERAL AXIAL Medical Imaging Routine Age-related osteoporosis without current pathological fracture Ordered: 09/21/2024 Scheduled Procedures Name Priority Associated Diagnoses Date/Ti me COLONOSCOPY FLEXIBLE PROXIMA L DIAGNOSTIC Recall Screening for colon cancer Health Maintenance Due Date Last Done Comments Hepatitis B Vaccine (2 of 3 - 19+ 3-dose series) 09/08/1990 08/11/1990 Cologuard 2001 Sigmoidoscopy 05/07/2008 05/07/2003 Fecal Occult Blood Test 08/20/2021 08/20/2020, 04/12 Adult Wellness Visit 2022 COVID-19 Vaccine ( season) 2024 09/10/2021, 08/12/2021 Influenza Vaccine (FLU shot) (#1) 2024 08/09/2023, 07/06/2022, 08/12/2021, Additional history exists Depression Screening 10/17/2024 10/17/2023 Mammogram 11/06/2024 11/06/2023, 02/2023, 11/03/2022, Additional history exists DXA Scan 07/31/2025 07/31/2023, 08/26/2021 Lipid Panel 08/10/2026 08/10/2021, 08/30, 08/11/2020, Additional history exists DTap/Tdap Vaccines (5 - Td or Tdap) 09/02/2029 09/02/2019, 10/30/2011, 10/23/2010, Additional history exists Colonoscopy 10/02/2033 10/02/2023, 01/2023, 07/06/2018, Additional history exists Colorectal Cancer Screening 10/02/2033 MENINGOCOCCAL (MENACTRA/MENVEO) Aged Out 09/20/2003, 04/05/1998, 12/28/1992 No longer eligible based on patient's age to complete this topic VITAMIN D LEVEL ONCE IN A LIFETIME-USE SMARTSET# [id number] Completed 08/21/2014 Pap Smear Discontinued 09/15/2020, 07/31, 08/23/2011, Additional history exists Zoster Vaccines Completed 01/01/2021, 08/17/2020 Pneumococcal Vaccine: 65+ Years Completed 01/02/2023, 12/15/2021 RETIRED - COLONOSCOPY-EVERY 5 YRS AGES 18-100 Discontinued 10/02/2023, 10/02/2023, 07/06/2018, Additional history exists HPV (Gardasil) Vaccine Aged Out No lo nger eligible based on patient's age to complete this topic documented as of this encounter Medical Devices Implanted Type Area Reproductive Endocrinologist Device Identifier Shelf Expiration Date Model / Serial / Lot [employer], Embosphere, Microspheres, 300-500 Implanted:Qty: 1 on 11/05/2019 by Israel Alvares MD at OR [facility] N/A: Head [employer] 11/29/2021 [id number] / [id number] / [id number] Plug Mesh Small Hernia - [id number] Implanted:Qty: 1 on 01/31/2023 by Jabari Salazar MD at OR [facility] Right: Groin CR BARD : DAVOL 09/26/2023 [id number] / / [id number] documented as of this encounter Visit Diagnoses Diagnosis Age-related osteoporosis without current pathological fracture- Primary Senile osteoporosis documented in this encounter Advance Directives * Full Code (Latest Code Status on File) Date Activated Date Inactivated Comments 01/31/2023 9:56 AM 01/31/2023 4:43 PM This order ref lects the patients wishes and were consensually agreed upon. Question Answer Comments Discussion of Advance Directives occurred with: Patient * Full Code Date Activated Date Inactivated Comments 11/05/2019 2:15 PM 11/05/2019 10:00 PM This order re flects the patients wishes and were consensually agreed upon. Question Answer Comments Discussion of Advance Directives occurred with: Not Discussed * Full Code Date Activated Date Inactivated Comments 09/02/2019 5:08 PM 09/05/2019 9:04 PM This order r eflects the patients wishes and were consensually agreed upon. Care Teams Hospital Coordinator Relationship Specialty Start Date End Date Elisa Graham MD [address] [facility] [place] [address] PCP - General Internal Medicine 01/06/23 documented as of this encounter
--- OUTSIDE RECORDS SUMMARY | 2024-11-13 16:55 | External Medical Summary | Summary of Care ---
Author Name Unknown Organization [facility] Address [address] [facility] [address] Phone [phone] Care Team Providers Care Patternmaker Apprentice Metal Name Role Phone Elisa Graham MD Primary Care Provider [phone] Reason for Visit * Reason Onset Date Comments Advice 08/29/2024 Encounter Details Date Type Department Care Team (Late st Contact Info) Description 08/29/2024 Telephone General Internal Medicine [facility] [address] [facility] [place] [address] Elisa Graham MD [address] [place] [address] Advice Allergies No known active allergiesdocumented as of this encounter (statuses as of 09/05/2024) Medications Medication Sig Dispensed Refills Start Date End Date Status Calcium Carb-Cholecalcifer ol 600-800 MG-UNIT Oral Tablet Chewable Take 1 Tab by mouth daily. Active Triamcinolone Acetonide 55 MCG/ACT Nasal Aerosol (Nasacort Allergy 24HR)Indications:O ther insomnia,Other chronic sinusitis,Primary snoring Administer 2 Sprays into each nostril at bedtime. 17 mL 5 04/13/2023 Active Additional Information Patient taking differently:2 [place] Each NostrilPRN, Rhinitis, Reported on 10/17/2023 Biotin 3 MG Oral Tablet Take by mouth. Pt unsure of dosage Active Vitamin D-3 25 MCG (1000 UT) Oral Capsule Unsure dose--dec to 1 every other day from 10/17/2023 1 Capsule 10/17/2023 Active Temazepam 7.5 MG Oral Capsule (Restoril)Indicati ons:Other insomnia Take 1 Capsule by mouth at bedtime. Do not start before July 03, 2024. 30 Capsule 2 07/03/2024 Active Sertraline HCl 50 MG Oral Tablet (Zoloft) Take 1 Tablet by mouth in the morning. Active documented as of this encounter (statuses as of 09/05/2024) Active Problems Problem Noted Date Diagnosed Date [...] 11/10/2009 Overview: ICD-10 update of inactive term History of colonoscopy with polypectomy 06/22/20 Overview: adenomatous tissue-repeat colonoscopy in 5 years documented as of this encounter (statuses as of 09/05/2024) Resolved Problems Problem Noted Date Diagnosed Date [...] as of this encounter (statuses as of 09/05/2024) Immunizations Name Administration Dates Next Due COVID-19 mRNA, LNP-s, No Pre serve, 2-Dose Series ([employer]) 09/10/2021,08/12/2021 DT - Diptheria/Tetanus (PEDS) 03/31/2003 HEP A - Hepatitis A (Adult > 18 yrs) 04/05/1998, 08/03/1997,08/18/1996 Hepatitis B, 20+ yrs 08/11/1990 Influenza, Whole Virus 09/20/2003,2001,10/07/2001,11/18,07/30/1995 MMR - Measles/Mumps/Rubella Vaccine 01/24/1985 Meningococcal Polysaccharide Vaccine (Menommune) 09/20/2003,04/05/1998,12/28/1992 OPV - Polio Virus Vaccine (Oral) 12/28/1989,0310/1984 PPD 04/05/1998 Pneumococcal Conjugate Vacci ne, 20-valent ([id number]) 01/02/2023 Pneumococcal Polysaccharide PPV23 (Pneumovax) 12/15/2021 Rabies Vaccine (Rabavert) 10/27/2010,10/23/2010 Seasonal Influenza Vac., MDV , IM, 0.5 mL (Fluzone) 07/18/2019,08/16/2018,08/10/2017,10/06,07/17/2014,07/17/2013,07/25/2012 ,08/30/2009,08/30/1999 Seasonal Influenza Virus Vac cine, Unspecified Formulation [...] money to get more. Never true 06/21/2022 Utilities Answer Date Recorded Do you have trouble paying y our heating, water, or electric bill? (Adult - for ages 18 years and over) Not on file 04/16/2024 Is your family able to pay t he heat, water, or electric bill? (Household - for ages 0-17 years) Not on file 04/16/2024 Does your family have access to good internet? (Household - for ages 0-17 years) Not on file 04/16/2024 Social Connections Answer Date Recorded How often do you feel lonely or isolated from those around you? (Adult - for ages 18 years and over) Not on file 04/16/2024 Sex and Gender Information Value Date Recorded Sex Assigned at Female 03/24/2023 10:04 AM EDT Gender Identity Female 03/24/2023 10:04 AM EDT Sexual Orientation Straight 08/02/2024 8: 39 AM EDT Job Start Date Occupation Industry Not on [...] encounter Miscellaneous Notes * Telephone Encounter - Radha Garcia CCMA - 09/05/2024 9:33 AM EST Spoke with patient regarding message below. Patient has been feeling fine no signs or symptoms. Shesays thanks for the follow up call. * Telephone Encounter - Elisa Graham MD - 09/02/2024 5:54 PM EST Agree as below and watch for any symptoms. * Telephone Encounter - Babs Clomenares CPhT - 08/29/2024 2:51 PM EDT Patient called to c/o of tick bite. Symptoms include: Tick bite occurred on 08/25/24 Tick is not still attached. Has the tick been completely removed: Yes Patient was bitten while riding horse in [facility]. Tick thought to be attached for 1 hours. Tick thought to be unknown. History of Lyme Disease? No Presence of a rash: No, area just has red dot where bitten Other associated symptoms: None Symptom onset: 0 day(s) Patient Instruction: 1. If the tick has been completely removed, no appointment needed. 2. If the tick is still embedded, try to remove it by grasping it as close to the skin as possible w/ tweezers and pulling gently until it lets go or its mouth breaks off. 3. The longer the tick stays embedded, the greater the chance to transmit infection. 4. The bite itself will be red and sore for a few days or more. That is to be expected. Call back for an appointment if: 1. Redness at the bite site persists and is still sore in a week. 2. The development of any flu-like symptoms over the next month, (such as fatigue, achy, feverish or generally ill). 3. If a rash that looks like a bullseye develops over the next month. 4. Call with any further questions or concerns. Verify pharmacy. Route message to provider if tick is attached longer than 36 hours but less than 72 hours. If tick is attached for over 72 hours schedule an appointment. Any symptoms require an appointment. documented in this encounter Plan of Treatment Upcoming Encounters Date Type Department Care Team (Late st Contact Info) Description 10/11/2024 10:20 AM EST Office Visit General Internal Medicine [facility] [address] [place] [address] Elisa Graham MD 200 [facility] [place] [address] 11/07/2024 10:15 AM EST Imaging Radiology [facility] [address] [facility] [place] [address] Scheduled Procedures Name Priority Associated Diagnoses Date/Ti [...] D LEVEL ONCE IN A LIFETIME-USE SMARTSET# [id number] Completed 08/21/2014 Pap Smear Discontinued 09/15/2020, 07/31, [...] this encounter Medical Devices Implanted Type Area Molding Press Operator Device Identifier Shelf Expiration Date Model / Serial / Lot [employer], Embosphere, Microspheres, 300-500 Implanted:Qty: 1 on 11/05/2019 by Israel Alvares [place] [facility] [place] Head [employer] 11/29/2021 [id number] / [id number] / [id number] Plug Mesh Small Hernia - [id number] Implanted:Qty: 1 on 01/31/2023 by Jabari Salazar MD at OR [facility] Right: Groin CR BARD : DAVOL 09/26/2023 [id number] / / [id number] documented as of this encounter Advance Directives * Full Code [...] and were consensually agreed upon. Care Teams Patternmaker Apprentice Metal Relationship Specialty Start Date End Date Elisa Graham MD [address] [place] [address] PCP - General Internal Medicine 01/06/23 documented as of this encounter
--- OUTSIDE RECORDS SUMMARY | 2024-11-13 16:55 | External Medical Summary | Summary of Care ---
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 Elisa Graham MD [address] [place] [address] Phone: tel: fax: Referral ID Status Reason Start Date Expiration Date Visits Requested Visits Authorized [id number] Pending Review Specialty Services Required [phone] Encounter Details Date Type Department Care Team (Latest Contact Info) Description 10/11/2024 10:00 AM EST - 10/11/2024 11:59 PM EST Hospital Encounter Radiology, [address] [address] Arrived Discharge Disposition: Home - Self Care Allergies No known active allergiesdocumented as of this encounter (statuses as of 10/12/2024) Medications Calcium Carb-Cholecalci ferol 600-800 MG-UNIT Oral Tablet Chewable Take 1 Tab by mouth daily. Active Triamcinolone Acetonide 55 MCG/ACT Nasal Aerosol (Nasacort Allergy 24HR)Indication s:Other insomnia,Other chronic sinusitis,Prima ry snoring Administer 2 Sprays into each nostril at bedtime. 17 mL 5 3 Active Additional Information Patient taking differently:2 [place] Each NostrilPRN, Rhinitis, Reported on 10/17/2023 Biotin [...] as of this encounter (statuses as of 10/12/2024) Active Problems Problem Noted Date Diagnosed Date [...] term History of colonoscopy with polypectomy 06/22/20 Overview (06/26/2007): adenomatous tissue-repeat colonoscopy in 5 years documented as of this encounter (statuses as of 10/12/2024) Resolved Problems Problem Noted Date Diagnosed Date [...] as of this encounter (statuses as of 10/12/2024) Immunizations Name Administration Dates Next Due COVID-19 mRNA, LNP-s, No Pre serve, 2-Dose Series ([employer]) 09/10/2021,08/12/2021 HEP A - Hepatitis A (Adult > 18 yrs) 04/05/1998, 08/03/1997,08/18/1996 Hepatitis B, 20+ yrs 08/11/1990 Influenza, Whole Virus 09/20/2003,2001,10/07/2001,11/18,07/30/1995 MMR - Measles/Mumps/Rubella Vaccine 01/24/1985 Meningococcal Polysaccharide Vaccine (Menommune) 09/20/2003,04/05/1998,12/28/1992 OPV - Polio Virus Vaccine (Oral) 12/28/1989,10/1984 PPD 04/05/1998 Pneumococcal Conjugate Vacci ne, 20-valent ([id number]) 01/02/2023 Pneumococcal Polysaccharide PPV23 (Pneumovax) 12/15/2021 Rabies [...] 09/02/2019 8:00 PM Melisa Serrato RN * Are you blind or do [...] Description 11/07/2024 10:15 AM EST Imaging Radiology [facility] [address] [facility] [place] [address] 11/13/2024 11:20 AM EST Office Visit General Internal Medicine [facility] [place] [place] [address] [place] [address] Elisa Graham MD 200 [facility] [place] [address] Pending Results Name Type Priority Associated Diagnoses Date /Time DEXA SCAN/BONE MINERAL AXIAL Medical Imaging Routine Age-related osteoporosis without current pathological fracture 10/11/2024 10:42 AM EST Scheduled Procedures Name Priority Associated Diagnoses Date/Ti me COLONOSCOPY FLEXIBLE PROXIMA L DIAGNOSTIC Recall Screening for colon cancer Health Maintenance Due Date Last Done Comments Hepatitis B Vaccine (2 of 3 - 19+ 3-dose series) 09/08/1990 08/11/1990 Cologuard 2001 Sigmoidoscopy 05/07/2008 05/07/2003 Fecal Occult Blood Test 08/20/2021 08/20/2020, 04/12 Adult Wellness Visit 2022 COVID-19 Vaccine ( season) 2024 09/10/2021, 08/12/2021 Depression Screening 10/17/2024 10/17/2023 Mammogram 11/06/2024 11/06/2023, [...] D LEVEL ONCE IN A LIFETIME-USE SMARTSET# [id number] Completed 08/21/2014 Pap Smear Discontinued 09/15/2020, 07/31, 08/23/2011, Additional history exists Zoster Vaccines Completed 01/01/2021, 08/17/2020 Pneumococcal Vaccine: 65+ Years Completed 01/02/2023, 12/15/2021 RETIRED - COLONOSCOPY-EVERY 5 YRS AGES 18-100 Discontinued 10/02/2023, 10/02/2023, 07/06/2018, Additional history exists Influenza Vaccine (FLU shot) Completed 08/15/2024, 08/09/2023, 07/06/2022, Additional history exists HPV (Gardasil) Vaccine Aged Out No lo nger eligible based on patient's age to complete this topic documented as of this encounter Medical Devices Implanted Type Area Claim Auditor Device Identifier Shelf Expiration Date Model / Serial / Lot [employer], Embosphere, Microspheres, 300-500 Implanted:Qty: 1 on 11/05/2019 by Israel Alvares MD at OR [facility] N/A: Head [employer] 11/29/2021 [id number] / [id number] / [id number] Plug Mesh Small Hernia - [id number] Implanted:Qty: 1 on 01/31/2023 by Jabari Salazar MD at OR [facility] Right: Groin CR BARD : DAVOL 09/26/2023 [id number] / / [id number] documented as of this encounter Advance Directives [...] and were consensually agreed upon. Care Teams Strap Machine Operator Relationship Specialty Start Date End Date Elisa Graham MD [address] [place] [address], [place] [address] PCP - General Internal Medicine 01/06/23 documented as of this encounter
--- OUTSIDE RECORDS SUMMARY | 2024-11-13 16:56 | External Medical Summary | Summary of Care ---
Author Name Unknown Organization [facility] Address [address] [facility] [address] Phone [phone] Care Team Providers Care Agriculture Consultant Name Role Phone Elisa Graham MD Primary Care Provider [phone] Reason for Visit * Reason Onset Date Comments Nurse Documentation 04/29/[address] needed Encounter Details Date Type Department Care Team (Late st Contact Info) Description 04/29/2024 Telephone General Internal Medicine [facility] [address] [facility] [place] [address] Elisa Graham MD [address] [place] [address] Nurse Documentation (Vaccine record needed) Allergies No known active allergiesdocumented as of this encounter (statuses as of 07/29/2024) Medications Medication Sig Dispensed Refills Start Date End Date Status Calcium Carb-Cholecalcifero l 600-800 MG-UNIT Oral Tablet Chewable Take 1 Tab by mouth daily. Active Triamcinolone Acetonide 55 MCG/ACT Nasal Aerosol (Nasacort Allergy 24HR)Indications:Ot her insomnia,Other chronic sinusitis,Primary snoring Administer 2 Sprays into each nostril at bedtime. 17 mL 5 04/13/2023 Active Additional Information Patient taking differently:2 [place] Each NostrilPRN, Rhinitis, Reported on 10/17/2023 Biotin 3 MG Oral Tablet Take by mouth. Pt unsure of dosage Active Vitamin D-3 25 MCG (1000 UT) Oral Capsule Unsure dose--dec to 1 every other day from 10/17/2023 1 Capsule 10/17/2023 Active documented as of this encounter (statuses as of 07/29/2024) Active Problems Problem Noted Date Diagnosed Date S/P total right hip arthroplasty 04/11/2024 Encounter [...] History of colonoscopy with polypectomy 06/22/20 07 Overview: adenomatous tissue-repeat colonoscopy in 5 years documented as of this encounter (statuses as of 07/29/2024) Resolved Problems Problem Noted Date Diagnosed Date [...] as of this encounter (statuses as of 07/29/2024) Immunizations Name Administration Dates Next Due COVID-19 mRNA, LNP-s, No Pre serve, 2-Dose Series (Pfizer) 09/10/2021,08/12/2021 HEP A - Hepatitis A (Adult > 18 yrs) 04/05/1998, 08/03/1997,08/18/1996 Hepatitis B, 20+ yrs 08/11/1990 Influenza, Whole Virus 09/20/2003,2001,10/07/2001,11/18,07/30/1995 MMR - Measles/Mumps/Rubella Vaccine 01/24/1985 Meningococcal Polysaccharide Vaccine (Menommune) 09/20/2003,04/05/1998,12/28/1992 OPV - Polio Virus Vaccine (Oral) 12/28/1989,10/1984 PPD 04/05/1998 Pneumococcal Conjugate Vacci ne, 20-valent ([id number]) 01/02/2023 Pneumococcal Polysaccharide PPV23 (Pneumovax) 12/15/2021 Rabies Vaccine (Rabavert) 10/27/2010,10/23/2010 Seasonal Influenza Virus Vac cine, Unspecified Formulation 08/12/2021,07/29/2020,10/06/2015,07/30 Seasonal Influenza, PF, 6 M & above, IM , (FluLaval or Fluzone) 07/06/2022,08/12/2021,07/29/2020 Seasonal Influenza, Quadriva lent, No Preserve, IM 08/09/2023 Seasonal Influenza, Trivalen t, (IIV3), with Preserv, (Fluzone) 07/18/2019,08/16/2018,08/10/2017,10/06,07/17/2014,07/17/2013,07/25/2012 ,08/30/2009 TD - Tetanus/Diptheria (ADULT) 10/23/2010 [...] encounter Miscellaneous Notes * Telephone Encounter - Rosa Ortiz MED ASSIST - 04/29/2024 10:21 AM EDT Spoke with patient. Received a fax from the [place] stating they have no patient by that name to send a vaccine record for. Patient will attempt to retrieve a copy of her vaccine record and then bring it with her to her next appointment. documented in this encounter Plan of Treatment Upcoming Encounters Date Type Department Care Team (Late st Contact Info) Description 10/11/2024 10:20 AM EST Office Visit General Internal Medicine [facility] [address] [place] [address] Elisa Graham MD [address] [facility] [place] [address] 11/07/2024 10:15 AM EST Imaging Radiology [facility] [address] [facility] [place] [address] [facility] [place] [address] Scheduled Procedures Name Priority Associated Diagnoses Date/Ti [...] D LEVEL ONCE IN A LIFETIME-USE SMARTSET# [id number] Completed 08/21/2014 Pap Smear Discontinued 09/15/2020, 07/31, [...] this encounter Medical Devices Implanted Type Area Blueprinting And Photocopy Supervisor Device Identifier Shelf Expiration Date Model / Serial / Lot [employer], Embosphere, Microspheres, 300-500 Implanted:Qty: 1 on 11/05/2019 by Israel Alvares MD [place] [facility] [place]/A: Head [employer] 11/29/2021 [id number] / [id number] / [id number] Plug Mesh Small Hernia - [id number] Implanted:Qty: 1 on 01/31/2023 by Jabari Salazar MD at OR [facility] Right: Groin CR BARD : DAVOL 09/26/2023 [id number] / / [id number] documented as of this encounter Advance Directives [...] and were consensually agreed upon. Care Teams Agriculture Consultant Relationship Specialty Start Date End Date Elisa Graham MD [address] [facility] [place] [address] PCP - General Internal Medicine 01/06/23 documented as of this encounter
--- OUTSIDE RECORDS SUMMARY | 2024-11-13 16:56 | External Medical Summary | Summary of Care ---
Author Name Unknown Organization [facility] Address [address] [facility] [address] Phone [phone] Care Team Providers Care Nuclear Weapons Specialist Name Role Phone Elisa Graham MD Primary Care Provider [phone] Encounter Details Date Type Department Care Team (Late st Contact Info) Description 07/02/2024 Orders Only General Internal Medicine [facility] [address] [place] [address] Elisa Graham MD 200 [place] [address] Allergies No known active allergiesdocumented as of this encounter (statuses as of 07/02/2024) Medications Medication Sig Dispensed Refills Start Date End Date Status Calcium Carb-Cholecalcifer ol 600-800 MG-UNIT Oral Tablet Chewable Take 1 Tab by mouth daily. Active Triamcinolone Acetonide 55 MCG/ACT Nasal Aerosol (Nasacort Allergy 24HR)Indications:O ther insomnia,Other chronic sinusitis,Primary snoring Administer 2 Sprays into each nostril at bedtime. 17 mL 5 04/13/2023 Active Additional Information Patient taking differently:2 [place] Each NostrilPRN, Rhinitis, Reported on 10/17/2023 Biotin 3 MG Oral Tablet Take by mouth. Pt unsure of dosage Active Vitamin D-3 25 MCG (1000 UT) Oral Capsule Unsure dose--dec to 1 every other day from 10/17/2023 1 Capsule 10/17/2023 Active Temazepam 7.5 MG Oral Capsule (Restoril)Indicati ons:Other insomnia Take 1 Capsule by mouth at bedtime. 30 Capsule 2 03/29/2024 Active documented as of this encounter (statuses as of 07/02/2024) Active Problems Problem Noted Date Diagnosed Date [...] as of this encounter (statuses as of 07/02/2024) Resolved Problems Problem Noted Date Diagnosed Date [...] as of this encounter (statuses as of 07/02/2024) Immunizations Name Administration Dates Next Due COVID-19 mRNA, LNP-s, No Pre serve, 2-Dose Series ([employer]) 09/10/2021,08/12/2021 HEP A - Hepatitis A (Adult > 18 yrs) 04/05/1998, 08/03/1997,08/18/1996 Hepatitis B, 20+ yrs 08/11/1990 Influenza, Whole Virus 09/20/2003,2001,10/07/2001,11/18,07/30/1995 MMR - Measles/Mumps/Rubella Vaccine 01/24/1985 Meningococcal Polysaccharide Vaccine (Menommune) 09/20/2003,04/05/1998,12/28/1992 OPV - Polio Virus Vaccine (Oral) 12/28/1989,10/1984 PPD 04/05/1998 Pneumococcal Conjugate Vacci ne, 20-valent ([id number]) 01/02/2023 Pneumococcal Polysaccharide PPV23 (Pneumovax) 12/15/2021 Rabies [...] AM EST Office Visit General Internal Medicine [facility] [address] [place] [address] Elisa Graham MD [address] [facility] [place] [address] 11/07/2024 10:15 AM EST Imaging Radiology [address] [facility] [place] [address] Scheduled Procedures Name Priority Associated Diagnoses Date/Ti me COLONOSCOPY FLEXIBLE PROXIMA L DIAGNOSTIC Recall Screening for colon cancer Health Maintenance Due Date Last Done Comments Hepatitis B Vaccine (2 of 3 - 19+ 3-dose series) 09/08/1990 08/11/1990 Cologuard 2001 Sigmoidoscopy 05/07/2008 05/07/2003 Fecal Occult Blood Test 08/20/2021 08/20/2020, 04/12 Adult Wellness Visit 2022 COVID-19 Vaccine (2022- season) 2024 09/10/2021, 08/12/2021 Influenza Vaccine (FLU shot) (#1) 2024 08/09/2023, 07/06/2022, 08/12/2021, Additional history exists Depression Screening 10/17/2024 10/17/2023 Mammogram 11/06/2024 11/06/2023, 02/2023, 11/03/2022, Additional history exists DXA Scan 07/02/2026 07/31/2023, 08/26/2021 Lipid Panel 08/10/2026 08/10/2021, 08/30, 08/11/2020, Additional history exists DTap/Tdap Vaccines (5 - Td or Tdap) 09/02/2029 09/02/2019, 10/30/2011, 10/23/2010, Additional history exists Colonoscopy 10/02/2033 10/02/2023, 01/2023, 07/06/2018, Additional history exists Colorectal Cancer Screening 10/02/2033 MENINGOCOCCAL (MENACTRA/MENVEO) Aged Out 09/20/2003, 04/05/1998, 12/28/1992 No longer eligible based on patient's age to complete this topic VITAMIN D LEVEL ONCE IN A LIFETIME-USE SMARTSET# [id number] Completed 08/21/2014 Pap Smear Discontinued 09/15/2020, 07/31, [...] this encounter Medical Devices Implanted Type Area Monomer Recovery Operator Device Identifier Shelf Expiration Date Model / Serial / Lot [employer], Embosphere, Microspheres, 300-500 Implanted:Qty: 1 on 11/05/2019 by Israel Alvares MD at OR [facility] [place] N/A: Head [employer] 11/29/2021 [id number] / [id number] / [id number] Plug Mesh Small Hernia - [id number] Implanted:Qty: 1 on 01/31/2023 by Jabari Salazar MD at OR [facility] Right: Groin CR BARD : DAVOL 09/26/2023 [id number] / / [id number] documented as of this encounter Procedures Procedure Name Priority Date/Time Associated Diagnosis Comments DEXA SCAN/BONE MINERAL AXIAL Routine 07/31/2023 documented in this encounter Results * DEXA SCAN/BONE MINERAL AXIAL (07/31/2023) Anatomical Region Laterality Modality Dexa, Vertebra, Spine, Hip, Pelvis Other 07/31/2023 Eboni Vann PA-C RADIOLOGY (R AD GENERAL) documented in this encounter Advance Directives * [...] and were consensually agreed upon. Care Teams Nuclear Weapons Specialist Relationship Specialty Start Date End Date Elisa Graham MD [address] [place] [address] PCP - General Internal Medicine 01/06/23 documented as of this encounter
--- OUTSIDE RECORDS SUMMARY | 2024-11-13 16:56 | External Medical Summary | Summary of Care ---
Author Name Unknown Organization [facility] Address [address] [facility] [place] [address] Phone [phone] Care Team Providers Care Caster Operator Name Role Phone Elisa Graham MD Primary Care Provider [phone] Reason for Referral * Evaluate & Treat - Unlimited Visits (Within 10 days (routine)) - Pending Review Specialty Diagnoses / Procedures Referred By Diana ponce Referred To Contact Physical Therapy / Physical Medicine And Rehab Diagnoses Thigh cramp S/P total right hip arthroplasty Arthritis of left hip Postural kyphosis of thoracic region Elisa Graham MD [address] [place] [id number] Referral ID Status Reason Start Date Expiration Date Visits Requested Visits Authorized [id number] Pending Review Specialty Services Required 4 [phone] Question Answer Referral Priority Within 10 days (routine) Where should this appointment be scheduled? External Reason for Visit * Reason Comments Return Visit Patient reports both of her legs have been cramping at nighttime. Fordoche into her lower abdomen one night. Feels the cramping has become worst in the past month or so. Patient also reports she was camping and riding her horse this past weekend. Found a tick Monday morning below her collar bone on her left side. Encounter Details Date Type Department Care Team (Late st Contact Info) Description 08/14/2024 12:20 PM EDT Office Visit General Internal Medicine [facility] [address] [facility] [place] [address] Elisa Graham MD [address] [facility] [place] [address] Thigh cramp*; S/P total right hip arthroplasty; Arthritis of left hip; Postural kyphosis of thoracic region; Age-related osteoporosis without current pathological fracture; History of fall from ladder; Infected tick bite, initial encounter Allergies No known active allergiesdocumented as of this encounter (statuses as of 08/14/2024) Medications Medication Sig Dispensed Refills Start Date End Date Status Calcium Carb-Cholecalcife rol 600-800 MG-UNIT Oral Tablet Chewable Take 1 Tab by mouth daily. Active Triamcinolone Acetonide 55 MCG/ACT Nasal Aerosol (Nasacort Allergy 24HR)Indications: Other insomnia,Other chronic sinusitis,Primary snoring Administer 2 Sprays into each nostril at bedtime. 17 mL 5 04/13/2023 Active Additional Information Patient taking differently:2 [place] Each NostrilPRN, Rhinitis, Reported on 10/17/2023 Biotin 3 MG Oral Tablet Take by mouth. Pt unsure of dosage Active Vitamin D-3 25 MCG (1000 UT) Oral Capsule Unsure dose--dec to 1 every other day from 10/17/2023 1 Capsule 10/17/2023 Active Temazepam 7.5 MG Oral Capsule (Restoril)Indicat ions:Other insomnia Take 1 Capsule by mouth at bedtime. Do not start before July 03, 2024. 30 Capsule 2 07/03/2024 Active Sertraline HCl 50 MG Oral Tablet (Zoloft) Take 1 Tablet by mouth in the morning. Active Doxycycline Hyclate 100 MG Oral CapsuleIndication s:Infected tick bite, initial encounter Take 1 Capsule by mouth in the morning and 1 Capsule before bedtime. Do all this for 10 days. Until gone.. 20 Capsule 08/14/2024 08/24/2024 Active documented as of this encounter (statuses as of 08/14/2024) Active Problems Problem Noted Date Diagnosed Date [...] as of this encounter (statuses as of 08/14/2024) Resolved Problems Problem Noted Date Diagnosed Date [...] as of this encounter (statuses as of 08/14/2024) Immunizations Name Administration Dates Next Due COVID-19 mRNA, LNP-s, No Pre serve, 2-Dose Series (Pfizer) 09/10/2021,08/12/2021 HEP A - Hepatitis A (Adult > 18 yrs) 04/05/1998, 08/03/1997,08/18/1996 Hepatitis B, 20+ yrs 08/11/1990 Influenza, Whole Virus 09/20/2003,2001,10/07/2001,11/18,07/30/1995 MMR - Measles/Mumps/Rubella Vaccine 01/24/1985 Meningococcal Polysaccharide Vaccine (Menommune) 09/20/2003,04/05/1998,12/28/1992 OPV - Polio Virus Vaccine (Oral) 12/28/1989,10/1984 PPD 04/05/1998 Pneumococcal Conjugate Vacci ne, 20-valent ([id number]) 01/02/2023 Pneumococcal Polysaccharide PPV23 (Pneumovax) 12/15/2021 Rabies [...] Sign Reading Time Taken Comments Blood Pressure 106/64 08/14/2024 12:18 PM EDT Pulse 62 08/14/2024 12:18 PM EDT Temperature 36.9 C (98.4 F) 08/14/2024 1 2:18 PM EDT Respiratory Rate - - Oxygen Saturation - - Inhaled Oxygen Concentration - - Weight 48.9 kg (107 lb 11.2 oz) 024 12:18 PM EDT Height - - Body Mass Index 18.49 04/11/2024 9:18 AM EDT documented in this encounter Functional [...] Progress Notes * Elisa Graham MD - 08/14/2024 12:38 PM EDT SUBJECTIVE: Caroline Dwyer is a 68 year old female. Chief Complaint Patient presents with Return Visit Patient reports both of her legs have been cramping at nighttime. Fordoche into her lower abdomen one night. Feels the cramping has become worst in the past month or so. Patient also reports she was camping and riding her horse this past weekend. Found a tick Monday below her collar bone on her left side. HPI: Patient presents today for acute appointment with symptoms of cramps in bilateral thighs for the last 2-3 weeks. States it is located on the inner aspect of her thighs, can happen when she is sleeping or when she is sitting down, on the left sided radiates up into the groin area and lower abdomen, usually she tries to walk and it improves, 1 day when she was playing bingo and sitting in a chair she had similar symptoms and had to walk around. Denies any low back pain or pain radiating downthe legs or to the groin, no weakness of the legs. Known moderate arthritis of the left hip, now status post right hip replacement 01/17/2024. since her hip replacement she feels the right hip protrudes out compared to the left Has kyphosis of the thoracic spine,, osteoporosis on a drug holiday, history of fall and compression fractures T8, [facility], had labs recently for them. Reviewed 12/08/23- -X-ray of the pelvis with right hip-moderate left and mild right hip arthritis, mild arthritis in the lumbar spine 04/22--now SP Rt THR 01/25/24 --anterior approach --DC summary rev--was in hosp 2nights as BP was low and HR high, Hb 6.7--EBL 10ml-received lot of IVF per note--got 2 units PRBC, had PT x 1 wk at home then 4days.--was dc on tylenol, oxy,celebrex,cymbalta 20mg bid and off now -Saw in f/u 03/29/24 for rt knee pain, had xr rt hip and knee--mild subchondral sclerosis but good jt space. Preop labs 01/05/24: Nml CBC Hb 12.7,coags, UA,LFT,BMP, Ca 9, ESR and MRSA DNA neg EKG--SB 54 bpm with SA CXR:- hyperinflation, flattening of the diaphragm, mild chronic interstitial coarsening, chronic T11 and age indeterminate T8 compression fracture, these were present in 2020 EKG 12/22-sinus bradycardia at 55 B p.m.. 0135-ghyz-sw valve abnormalities, stress echo negative. NONsmoker. Osteoporosis>F/B [facility], on alendronate weekly -[facility]. DEX[facility] scan 08/18/2021 done at the [facility], next will be due 08/2023., Advised also have vitamin-D level checked. Labs -07/21- normal CMP, lipids 190/44/77/20 , -normal CBC [facility] labs--08/02/23--A1c 5.7,nml BMP,lft, VD 69, 202/50/79/113, ua 07/31/23--DEXA--LS -2.5;hips -2.4/-2.3---next dexa 07/2025 -saw endo 08/17/23--was adv drug holiday as was on fosamax [phone] and [id number]. 02/07/24--Vd,PTH,cmp, ca/cr f/u 1 yr [facility] 07/2024,--normal CBC,LFT, BMP, calcium 9.8, vitamin-D 63, PTH 30, urine calcium 57, albumin negative, UA negative, lipids 207/89/80/109, A1c 5.7% -taking vitamin-D every other day, also taking calcium with D 1 daily-she was unsure of the dosage and to e-mail me with the dosage. Today also complains of camping last Monday and Monday, Monday she felt a pain below her armpit and noticed a tick and try to remove it but states some it did not come out completely and she tried to dig it out. Mild swelling around the area. 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 Triamcinolone Acetonide 55 MCG/ACT Nasal Aerosol (Nasacort [...] before July 03, 2024. 30 Capsule 2 Sertraline HCl 50 MG Oral Tablet (Zoloft) Take 1 Tablet by mouth in the morning. No current facility-administered medications for this visit. Review of patient's allergies indicates: No Known Allergies OBJECTIVE: BP 106/64 | Pulse 62 | Temp 36.9 C (98.4 F) (Tympanic) | Wt 48.9 kg (107 lb 11.2 oz) | LMP 06/09/2005 | BMI 18.49 kg/m | BSA 1.49 m PHYSICAL EXAM: General: alert, healthy, no distress, well developed Neck: supple, no adenopathy, thyroid Not enlarged without nodularity Heart: regular rhythm and rate,No murmurs. Lungs: lungs clear to auscultation Extremities: no edema Abdomen: Soft, non-tender, normal bowel sounds, no masses or organomegaly Back--kyphosis of the thoracic spine, no spine tenderness, mild SI joint tenderness. Negative SLR bilaterally. Full range of motion of the knee joints. Decrease in abduction of the hip joints, mild tenderness greater trochanteric area bilaterally Skin-medial to the left axilla 2 cm area of localized swelling with a central ulcer at the site of the tick bite, no tick remnants seen, dry blood. ASSESSMENT/PLAN: Thigh cramp (Primary) - XR L SPINE AP AND LATERAL; Future; Expected date: 08/14/2024 - PHYSICAL THERAPY REFERRAL OP S/P total right hip arthroplasty - XR L SPINE AP AND LATERAL; Future; Expected date: 08/14/2024 - PHYSICAL THERAPY REFERRAL OP Arthritis of left hip - XR L SPINE AP AND LATERAL; Future; Expected date: 08/14/2024 - PHYSICAL THERAPY REFERRAL OP Postural kyphosis of thoracic region - XR L SPINE AP AND LATERAL; Future; Expected date: 08/14/2024 - PHYSICAL THERAPY REFERRAL OP -labs are normal, recommend physical therapy, if symptoms persist would need to see Ortho for consideration of steroid injection in the hip joint. Stay well hydrated, Tylenol as needed for pain Age-related osteoporosis without current pathological fracture History of fall from ladder -await eval by [facility]. E-mail dose of calcium and vitamin-D Infected tick bite, initial encounter - Doxycycline Hyclate 100 MG Oral Capsule; Take 1 Capsule by mouth in the morning and 1 Capsule before bedtime. Do all this for 10 days. Until gone.. Doxycycline should be taken twice a day with a full glass of water. Avoid sun exposure or use #30 sun block while on this medication because it will increase your skin's sensitivity to sun. Avoid dairy products for one hour before and after each dose.x Follow Up: Return if symptoms worsen or fail to improve, for Return with Physician. | For: Return with Physician | Check-out note: Xray today (This note was completed using the dictation [...] with plan of care. Elisa Graham MD 08/14/2024 documented in this encounter Nursing Notes * Mishel Orlando MED ASSIST - 08/14/2024 12:22 PM EDT Chief Complaint Patient presents with Return Visit Patient reports both of her legs have been cramping at nighttime. Fordoche into her lower abdomen one night. Feels the cramping has become worst in the past month or so. Patient also reports she was camping and riding her horse this past weekend. Found a tick Monday morning below her collar bone on her left side. Patient has been verbally educated on the need or importance of Flu Vaccine and HepB Vaccine and has declined topic(s). [facility] Would like to discuss blood test for Hep B before receiving. documented in this encounter Plan of Treatment Upcoming Encounters Date Type Department Care Team (Late st Contact Info) Description 10/11/2024 10:20 AM EST Office Visit General Internal Medicine [facility] [address] [place] [address] Elisa Graham MD [address] [facility] [place] [address] 11/07/2024 10:15 AM EST Imaging Radiology [facility] [address] [facility] [address] [facility] [place] [address] Scheduled Procedures Name Priority Associated Diagnoses Date/Ti me COLONOSCOPY FLEXIBLE PROXIMA L DIAGNOSTIC Recall Screening for colon cancer Scheduled Referrals Name Type Priority Associated Diagnoses Orde r Schedule PHYSICAL THERAPY REFERRAL OP Referral Within 10 days (routine) Thigh cramp S/P total right hip arthroplasty Arthritis of left hip Postural kyphosis of thoracic region Ordered: 08/14/2024 Health Maintenance Due Date Last Done Comments Hepatitis B Vaccine (2 of 3 - 19+ 3-dose series) 09/08/1990 08/11/1990 Cologuard 2001 Sigmoidoscopy 05/07/2008 05/07/2003 Fecal Occult Blood Test 08/20/2021 08/20/2020, 04/12 Adult Wellness Visit 2022 Influenza Vaccine (FLU shot) (#1) 2024 08/09/2023, 07/06/2022, 08/12/2021, Additional history exists COVID-19 Vaccine ( season) 2024 09/10/2021, 08/12/2021 Postponed from 06/30/2024 (Unavailable) Depression Screening 10/17/2024 10/17/2023 Mammogram 11/06/2024 11/06/2023, [...] D LEVEL ONCE IN A LIFETIME-USE SMARTSET# [id number] Completed 08/21/2014 Pap Smear Discontinued 09/15/2020, 07/31, [...] this encounter Medical Devices Implanted Type Area Repairer Typewriter Device Identifier Shelf Expiration Date Model / Serial / Lot [employer], Embosphere, Microspheres, 300-500 Implanted:Qty: 1 on 11/05/2019 by Israel Alvares MD at [place] [facility] [place]/A: [employer] 11/29/2021 [id number] / [id number] / [id number] Plug Mesh Small Hernia - [id number] Implanted:Qty: 1 on 01/31/2023 by Jabari Salazar MD at OR [facility] Right: Groin CR BARD : DAVOL 09/26/2023 [id number] / / [id number] documented as of this encounter Results * XR L SPINE AP AND LATERAL (08/14/2024 1:20 PM EDT) Anatomical Region Laterality Modality Vertebra, Lspine Computed Radiog sherrie 08/14/2024 1:28 PM EDT Impressions 08/14/2024 1:25 PM EDT IMPRESSION Chronic findings as above. Narrative 08/14/2024 1:25 PM EDT EXAM XR L SPINE AP AND LATERAL- 08/14/2024 1:20 pm HISTORY Provided clinical history: "intermittent thigh cramps, sp rt THR 01/20; left hip oa" TECHNIQUE AP, lateral, and L5-S1 spot lateral views of the lumbar spine were obtained. COMPARISON CT scan dated November 24, 2022. FINDINGS Five lumbar-type vertebral bodies. Mild levoscoliosis of the thoracolumbar junction. Mild chronic compression deformity of the L1 vertebral body. Mild grade 1 anterolisthesis of L4 on L5. Ntib-sf-rxyebrvp multilevel intervertebral disc degeneration. Multilevel facet osteoarthritis, greatest at the lumbosacral junction. No acute fracture identified. Status post right total hip arthroplasty. Moderate osteoarthritis of the left hip. Procedure Note Faraz Mcdonald MD - 08/14/2024 EXAM XR L SPINE AP AND LATERAL- 08/14/2024 1:20 pm HISTORY Provided clinical history: "intermittent thigh cramps, sp rt THR 01/20;left hip oa" TECHNIQUE AP, lateral, and L5-S1 spot lateral views of the lumbar spine wereobtained. COMPARISON CT scan dated November 24, 2022. FINDINGS Five lumbar-type vertebral bodies. Mild levoscoliosis of thethoracolumbar junction. Mild chronic compression deformity of the D0nehsvwxsi body. Mild grade 1 anterolisthesis of L4 on L5.Htzm-rh-idlvxogw multilevel intervertebral disc degeneration. Multilevelfacet osteoarthritis, greatest at the lumbosacral junction. No acutefracture identified. Status post right total hip arthroplasty. Moderateosteoarthritis of the left hip. IMPRESSION IMPRESSION Chronic findings as above. Elisa Graham MD RADIOLOGY (RAD GENER AL) documented in this encounter Visit Diagnoses Diagnosis Thigh cramp- Primary Cramp of limb S/P total right hip arthroplasty Arthritis of left hip Postural kyphosis of thoracic region Kyphosis (acquired) (postural) Age-related osteoporosis without current pathological fracture Senile osteoporosis History of fall from ladder Infected tick bite, initial encounter Thigh cramp Cramp of limb S/P total right hip arthroplasty Arthritis of left hip Postural kyphosis of thoracic region Kyphosis (acquired) (postural) documented in this encounter Advance Directives * [...] and were consensually agreed upon. Care Teams Caster Operator Relationship Specialty Start Date End Date Elisa Graham MD [address] [facility] [place] [address] PCP - General Internal Medicine 01/06/23 documented as of this encounter
--- OUTSIDE RECORDS SUMMARY | 2024-11-13 16:56 | External Medical Summary | Summary of Care ---
Author Name Unknown Organization [facility] Address [address] [facility] [place] [address] Phone [phone] Care Team Providers Care Shield Cleaner Name Role Phone Elisa Graham MD Primary Care Provider [phone] Reason for Visit * Reason Onset Date Comments Health Maintenance 06/26/2024 Encounter Details Date Type Department Care Team (Late st Contact Info) Description 06/26/2024 Telephone General Internal Medicine [facility] [address] [facility] [place] [address] Elisa Graham MD [address] [facility] [place] [address] Health Maintenance Allergies No known active allergiesdocumented as of this encounter (statuses as of 06/27/2024) Medications Medication Sig Dispensed Refills Start Date End Date Status Calcium Carb-Cholecalcifer ol 600-800 MG-UNIT Oral Tablet Chewable Take 1 Tab by mouth daily. Active Triamcinolone Acetonide 55 MCG/ACT Nasal Aerosol (Nasacort Allergy 24HR)Indications:O ther insomnia,Other chronic sinusitis,Primary snoring Administer 2 Sprays into each nostril at bedtime. 17 mL 5 04/13/2023 Active Additional Information Patient taking differently:2 [place] Each NostrilPRN, Rhinitis, Reported on 10/17/2023 Biotin [...] as of this encounter (statuses as of 06/27/2024) Active Problems Problem Noted Date Diagnosed Date [...] as of this encounter (statuses as of 06/27/2024) Resolved Problems Problem Noted Date Diagnosed Date [...] as of this encounter (statuses as of 06/27/2024) Immunizations Name Administration Dates Next Due COVID-19 mRNA, LNP-s, No Pre serve, 2-Dose Series (AdviseHub) 09/10/2021,08/12/2021 HEP A - Hepatitis A (Adult > 18 yrs) 04/05/1998, 08/03/1997,08/18/1996 Hepatitis B, 20+ yrs 08/11/1990 Influenza, Whole Virus 09/20/2003,2001,10/07/2001,11/18,07/30/1995 MMR - Measles/Mumps/Rubella Vaccine 01/24/1985 Meningococcal Polysaccharide Vaccine (Menommune) 09/20/2003,04/05/1998,12/28/1992 OPV - Polio Virus Vaccine (Oral) 12/28/1989,03/0 10/1984 PPD 04/05/1998 Pneumococcal Conjugate Vacci ne, 20-valent ([id number]) 01/02/2023 Pneumococcal Polysaccharide PPV23 (Pneumovax) 12/15/2021 Rabies [...] encounter Miscellaneous Notes * Telephone Encounter - Candi Moss LPN - 06/26/2024 9:58 AM EDT Care Gaps Comprehensive Care Outreach Last Office/Telemedicine Visit: 04/11/2024 (in office), Visit date not found (telemedicine) Next Office Visit: 10/11/2024 Hemoglobin AIC Results: No results found for: "HEMOGLOBIN A1C" BP Readings from Last 1 Encounters: 04/11/24 120/68 Reviewed Health Maintenance below: Health Maintenance Topic Date Due Hepatitis B Vaccine (2 of 3 - 19+ 3-dose series) 09/08/1990 Adult Wellness Visit Never done COVID-19 Vaccine ( - 2022- season) 2023 DXA Scan 08/26/2023 Influenza Vaccine (FLU shot) (1) 06/30/2024 Depression Screening 10/17/2024 Awv Dexa done at ca requested Care Gap Outreach Action Taken: DietBettert message sent documented in this encounter Plan of Treatment Upcoming Encounters Date Type Department Care Team (Late st Contact Info) Description 10/11/2024 10:20 AM EST Office Visit General Internal Medicine [facility] [place] [address] [place] [address] Elisa Graham MD [address] [place] [address] 11/07/2024 10:15 AM EST Imaging Radiology [facility] [address] [facility] [place] [address] [facility] [place] [address] Scheduled Procedures Name Priority Associated Diagnoses Date/Ti me COLONOSCOPY FLEXIBLE PROXIMA L DIAGNOSTIC Recall Screening for colon cancer Health Maintenance Due Date Last Done Comments Hepatitis B Vaccine (2 of 3 - 19+ 3-dose series) 09/08/1990 08/11/1990 Cologuard 2001 Sigmoidoscopy 05/07/2008 05/07/2003 Fecal Occult Blood Test 08/20/2021 08/20/2020, 04/12 Adult Wellness Visit 2022 COVID-19 Vaccine (3 - 2022-24 season) 2023 09/10/2021, 08/12/2021 DXA Scan 08/26/2023 08/26/2021 Influenza Vaccine (FLU shot) (#1) 2024 08/09/2023, [...] D LEVEL ONCE IN A LIFETIME-USE SMARTSET# [id number] Completed 08/21/2014 Pap Smear Discontinued 09/15/2020, 07/31, [...] this encounter Medical Devices Implanted Type Area Holter Scanning Technician Device Identifier Shelf Expiration Date Model / Serial / Lot [employer], Embosphere, Microspheres, 300-500 Implanted:Qty: 1 on 11/05/2019 by Israel Alvares MD at [place] [facility] [place] N/A: Head [employer] 11/29/2021 [id number] / [id number] / [id number] Plug Mesh Small Hernia - [id number] Implanted:Qty: 1 on 01/31/2023 by Jabari Salazar MD at OR [facility] Right: Groin CR BARD : DAVOL 09/26/2023 [id number] / / [id number] documented as of this encounter Advance Directives * Full Code (Latest Code Status on File) Date Activated Date Inactivated Comments 01/31/2023 9:56 AM 01/31/2023 4:43 PM This order re flects the patients [...] and were consensually agreed upon. Care Teams Shield Cleaner Relationship Specialty Start Date End Date Elisa Graham MD [address] [facility] [place] [address] PCP - General Internal Medicine 01/06/23 documented as of this encounter
--- OUTSIDE RECORDS SUMMARY | 2024-11-13 16:56 | External Medical Summary | Summary of Care ---
Author Name Unknown Organization [facility] Address [address] [facility] [address] Phone [phone] Care Team Providers Care In Flight Refueling System Repairer Name Role Phone Elisa Graham MD Primary Care Provider [phone] Reason for Visit * Reason Onset Date Comments FYI 08/14/2024 Encounter Details Date Type Department Care Team (Late st Contact Info) Description 08/14/2024 Telephone General Internal Medicine [facility] 200 [facility] [place] [address] Elisa Graham MD 200 [place] [address] FYI Allergies No known active allergiesdocumented as of [...] 04/13/2023 Active Additional Information Patient taking differently:2 [place] Each NostrilPRN, Rhinitis, Reported on 10/17/2023 Biotin [...] mRNA, LNP-s, No Pre serve, 2-Dose Series (Unique Blog Designs) 09/10/2021,08/12/2021 HEP A - Hepatitis A (Adult > 18 yrs) 04/05/1998, 08/03/1997,08/18/1996 Hepatitis B, 20+ yrs 08/11/1990 Influenza, Whole Virus 09/20/2003,2001,10/07/2001,11/18,07/30/1995 MMR - Measles/Mumps/Rubella Vaccine 01/24/1985 Meningococcal Polysaccharide Vaccine (Menommune) 09/20/2003,04/05/1998,12/28/1992 OPV - Polio Virus Vaccine (Oral) 12/28/1989,0310/1984 PPD 04/05/1998 Pneumococcal Conjugate Vacci ne, 20-valent ([id number]) 01/02/2023 Pneumococcal Polysaccharide PPV23 (Pneumovax) 12/15/2021 Rabies [...] encounter Miscellaneous Notes * Telephone Encounter - Janet Mejia OSA - 08/14/2024 1:09 PM EDT Pt order faxed to [facility] [place] Fax successful documented in this encounter Plan of Treatment Upcoming Encounters Date Type Department Care Team (Late st Contact Info) Description 10/11/2024 10:20 AM EST Office Visit General Internal Medicine [facility] [address] [place] [address] Elisa Graham MD [address] [place] [address] 11/07/2024 10:15 AM EST Imaging Radiology [facility] 1st [facility] 132 [facility] [place] [address] Scheduled Procedures Name Priority Associated Diagnoses Date/Ti [...] D LEVEL ONCE IN A LIFETIME-USE SMARTSET# 16704 Completed 08/21/2014 Pap Smear Discontinued 09/15/2020, 07/31, [...] this encounter Medical Devices Implanted Type Area Dental Front Office Assistant Device Identifier Shelf Expiration Date Model / Serial / Lot [employer], Embosphere, Microspheres, 300-500 Implanted:Qty: 1 on 11/05/2019 by Israel Alvares MD at [place] [facility] [place] N/A: Head [employer] 11/29/2021 S420GH / [id number] / [id number] Plug Mesh Small Hernia - [id number] Implanted:Qty: 1 on 01/31/2023 by Jabari Salazar MD at OR [facility] Right: Groin CR BARD : DAVOL 09/26/2023 [id number] / / [id number] documented as of this encounter Advance Directives [...] and were consensually agreed upon. Care Teams In Flight Refueling System Repairer Relationship Specialty Start Date End Date Elisa Graham MD [address] [place], [place] [address] [address] PCP - General Internal Medicine 01/06/23 documented as of this encounter
--- OUTSIDE RECORDS SUMMARY | 2024-11-13 16:56 | External Medical Summary | Summary of Care ---
Author Name Unknown Organization [facility] Address [address] [facility] [address] Phone [phone] Care Team Providers Care Senior Network Security Architect Name Role Phone Elisa Graham MD Primary Care Provider [phone] Reason for Visit * Reason Onset Date Comments Advice 08/29/2024 Encounter Details Date Type Department Care Team (Late st Contact Info) Description 08/29/2024 Telephone General Internal Medicine [facility] 200 [facility] [place] [address] Elisa Graham MD 200 [place] [address] Advice Allergies No known active allergiesdocumented as of this encounter (statuses as of 09/02/2024) Medications Medication Sig Dispensed Refills Start Date End Date Status Calcium Carb-Cholecalcifer ol 600-800 MG-UNIT Oral Tablet Chewable Take 1 Tab by mouth daily. Active Triamcinolone Acetonide 55 MCG/ACT Nasal Aerosol (Nasacort Allergy 24HR)Indications:O ther insomnia,Other chronic sinusitis,Primary snoring Administer 2 Sprays into each nostril at bedtime. 17 mL 5 04/13/2023 Active Additional Information Patient taking differently:2 [place] Each NostrilPRN, Rhinitis, Reported on 10/17/2023 Biotin [...] as of this encounter (statuses as of 09/02/2024) Active Problems Problem Noted Date Diagnosed Date [...] as of this encounter (statuses as of 09/02/2024) Resolved Problems Problem Noted Date Diagnosed Date [...] as of this encounter (statuses as of 09/02/2024) Immunizations Name Administration Dates Next Due COVID-19 mRNA, LNP-s, No Pre serve, 2-Dose Series (R[employer] TV) 09/10/2021,08/12/2021 HEP A - Hepatitis A (Adult > 18 yrs) 04/05/1998, 08/03/1997,08/18/1996 Hepatitis B, 20+ yrs 08/11/1990 Influenza, Whole Virus 09/20/2003,2001,10/07/2001,11/18,07/30/1995 MMR - Measles/Mumps/Rubella Vaccine 01/24/1985 Meningococcal Polysaccharide Vaccine (Menommune) 09/20/2003,04/05/1998,12/28/1992 OPV - Polio Virus Vaccine (Oral) 12/28/1989,0310/1984 PPD 04/05/1998 Pneumococcal Conjugate Vacci ne, 20-valent ([id number]) 01/02/2023 Pneumococcal Polysaccharide PPV23 (Pneumovax) 12/15/2021 Rabies [...] encounter Miscellaneous Notes * Telephone Encounter - Babs Colmenares CPhT - 08/29/2024 2:51 PM EDT Patient called to c/o of tick bite. Symptoms include: Tick bite occurred on 08/25/24 Tick is not still attached. Has the tick been completely removed: Yes Patient was bitten while riding horse in [facility]. Tick thought to be attached for 1 [...] AM EST Office Visit General Internal Medicine [facility] 200 [facility] [place] [address] Elisa Graham MD 200 [facility] [place] [address] 11/07/2024 10:15 AM EST Imaging Radiology [facility] 1st [facility] 132 [facility] [place] [place] [address] Scheduled Procedures Name Priority Associated Diagnoses Date/Ti [...] D LEVEL ONCE IN A LIFETIME-USE SMARTSET# 48116 Completed 08/21/2014 Pap Smear Discontinued 09/15/2020, 07/31, [...] this encounter Medical Devices Implanted Type Area Puller Over Device Identifier Shelf Expiration Date Model / Serial / Lot Ticket[employer] Inc, Embosphere, Microspheres, 300-500 Implanted:Qty: 1 on 11/05/2019 by Israel Alvares MD at [place] [facility] [place] N/A: Head [employer] 11/29/2021 S420GH / [id number] / [id number] Plug Mesh Small Hernia - [id number] Implanted:Qty: 1 on 01/31/2023 by Jabari Salazar MD at OR [facility] Right: Groin CR BARD : DAVOL 09/26/2023 [id number] / / [id number] documented as of this encounter Advance Directives [...] and were consensually agreed upon. Care Teams Senior Network Security Architect Relationship Specialty Start Date End Date Elisa Graham MD 200 [facility] [place] [address] PCP - General Internal Medicine 01/06/23 documented as of this encounter
--- OUTSIDE RECORDS SUMMARY | 2024-11-13 16:56 | External Medical Summary | Summary of Care ---
Author Name Unknown Organization [facility] Address [address] [facility] [address] Phone [phone] Care Team Providers Care Caddie Supervisor Name Role Phone Elisa Graham MD Primary Care Provider [phone] Reason for Visit * Reason Onset Date Comments Health Maintenance 06/26/2024 Encounter Details Date Type Department Care Team (Late st Contact Info) Description 06/26/2024 Telephone General Internal Medicine [facility] 200 [facility] [place] [address] Elisa Graham MD 200 [place] [address] Health Maintenance Allergies No known active allergiesdocumented as of this encounter (statuses as of 06/26/2024) Medications Medication Sig Dispensed Refills Start Date End Date Status Calcium Carb-Cholecalcifer ol 600-800 MG-UNIT Oral Tablet Chewable Take 1 Tab by mouth daily. Active Triamcinolone Acetonide 55 MCG/ACT Nasal Aerosol (Nasacort Allergy 24HR)Indications:O ther insomnia,Other chronic sinusitis,Primary snoring Administer 2 Sprays into each nostril at bedtime. 17 mL 5 04/13/2023 Active Additional Information Patient taking differently:2 [place] Each NostrilPRN, Rhinitis, Reported on 10/17/2023 Biotin [...] as of this encounter (statuses as of 06/26/2024) Active Problems Problem Noted Date Diagnosed Date [...] as of this encounter (statuses as of 06/26/2024) Resolved Problems Problem Noted Date Diagnosed Date [...] as of this encounter (statuses as of 06/26/2024) Immunizations Name Administration Dates Next Due COVID-19 mRNA, LNP-s, No Pre serve, 2-Dose Series (Friendsignia) 09/10/2021,08/12/2021 HEP A - Hepatitis A (Adult > 18 yrs) 04/05/1998, 08/03/1997,08/18/1996 Hepatitis B, 20+ yrs 08/11/1990 Influenza, Whole Virus 09/20/2003,2001,10/07/2001,11/18,07/30/1995 MMR - Measles/Mumps/Rubella Vaccine 01/24/1985 Meningococcal Polysaccharide Vaccine (Menommune) 09/20/2003,04/05/1998,12/28/1992 OPV - Polio Virus Vaccine (Oral) 12/28/1989,03/0 10/1984 PPD 04/05/1998 Pneumococcal Conjugate Vacci ne, 20-valent ([id number]) 01/02/2023 Pneumococcal Polysaccharide PPV23 (Pneumovax) 12/15/2021 Rabies [...] Depression Screening 10/17/2024 Awv Dexa done at ne requested Care Gap Outreach Action Taken: Post Grad Apartments LLCt message sent documented in this encounter Plan of Treatment Upcoming Encounters Date Type Department Care Team (Late st Contact Info) Description 10/11/2024 10:20 AM EST Office Visit General Internal Medicine [address] [address] [place] [address] [place] [address] [address] Elisa Graham MD [address] [place] [address] 11/07/2024 10:15 AM EST Imaging Radiology [facility] 1st [facility] [place] 132 [facility] [place] [address] Scheduled Procedures Name Priority Associated Diagnoses Date/Ti [...] D LEVEL ONCE IN A LIFETIME-USE SMARTSET# 13575 Completed 08/21/2014 Pap Smear Discontinued 09/15/2020, 07/31, [...] this encounter Medical Devices Implanted Type Area Survey Statistician Device Identifier Shelf Expiration Date Model / Serial / Lot Cal[employer]o [employer] Inc, Embosphere, Microspheres, 300-500 Implanted:Qty: 1 on 11/05/2019 by Israel Alvares MD at OR [facility] [place] N/A: Head [employer] 11/29/2021 S420GH / [id number] / [id number] Plug Mesh Small Hernia - [id number] Implanted:Qty: 1 on 01/31/2023 by Jabari Salazar MD at OR [facility] Right: Groin CR BARD : DAVOL 09/26/2023 [id number] / / [id number] documented as of this encounter Advance Directives [...] and were consensually agreed upon. Care Teams Caddie Supervisor Relationship Specialty Start Date End Date Elisa Graham MD 200 [facility] [place] [address] PCP - General Internal Medicine 01/06/23 documented as of this encounter
--- OUTSIDE RECORDS SUMMARY | 2024-11-13 16:56 | External Medical Summary | Summary of Care ---
Author Name Unknown Organization [facility] Address [address] [facility] [address] Phone [phone] Care Team Providers Care Window Glazier Name Role Phone Elisa Graham MD Primary Care Provider Reason for Visit * Reason Onset Date Comments Advice 08/29/2024 Encounter Details Date Type Department Care Team (Late st Contact Info) Description 08/29/2024 Telephone General Internal Medicine [facility] 200 [facility] [place] [address] Elisa Graham MD 200 [place] [address] Advice Allergies No known active allergiesdocumented as of this encounter (statuses as of 08/30/2024) Medications Medication Sig Dispensed Refills Start Date End Date Status Calcium Carb-Cholecalcifer ol 600-800 MG-UNIT Oral Tablet Chewable Take 1 Tab by mouth daily. Active Triamcinolone Acetonide 55 MCG/ACT Nasal Aerosol (Nasacort Allergy 24HR)Indications:O ther insomnia,Other chronic sinusitis,Primary snoring Administer 2 Sprays into each nostril at bedtime. 17 mL 5 04/13/2023 Active Additional Information Patient taking differently:2 [place] Each NostrilPRN, Rhinitis, Reported on 10/17/2023 Biotin [...] as of this encounter (statuses as of 08/30/2024) Active Problems Problem Noted Date Diagnosed Date [...] as of this encounter (statuses as of 08/30/2024) Resolved Problems Problem Noted Date Diagnosed Date [...] as of this encounter (statuses as of 08/30/2024) Immunizations Name Administration Dates Next Due COVID-19 mRNA, LNP-s, No Pre serve, 2-Dose Series (BrightTALK) 09/10/2021,08/12/2021 HEP A - Hepatitis A (Adult > 18 yrs) 04/05/1998, 08/03/1997,08/18/1996 Hepatitis B, 20+ yrs 08/11/1990 Influenza, Whole Virus 09/20/2003,2001,10/07/2001,11/18,07/30/1995 MMR - Measles/Mumps/Rubella Vaccine 01/24/1985 Meningococcal Polysaccharide Vaccine (Menommune) 09/20/2003,04/05/1998,12/28/1992 OPV - Polio Virus Vaccine (Oral) 12/28/1989,0310/1984 PPD 04/05/1998 Pneumococcal Conjugate Vacci ne, 20-valent ([id number]) 01/02/2023 Pneumococcal Polysaccharide PPV23 (Pneumovax) 12/15/2021 Rabies [...] Patient was bitten while riding horse in [facility]. Tick thought to be attached for [...] Visit General Internal Medicine [facility] 200 [facility] [place] [address] Elisa Graham MD 200 [facility] [place] [address] 11/07/2024 10:15 AM EST Imaging Radiology [facility] [address] [facility] 132 [facility] [place] [address] Scheduled Procedures Name Priority Associated Diagnoses Date/Ti [...] D LEVEL ONCE IN A LIFETIME-USE SMARTSET# 17808 Completed 08/21/2014 Pap Smear Discontinued 09/15/2020, 07/31, [...] this encounter Medical Devices Implanted Type Area Daycare Assistant Device Identifier Shelf Expiration Date Model / Serial / Lot Aquic[employer] Inc, Embosphere, Microspheres, 300-500 Implanted:Qty: 1 on 11/05/2019 by Israel Alvares MD at OR [facility] N/A: Head [employer] 11/29/2021 S420GH / [id number] / [id number] Plug Mesh Small Hernia - [id number] Implanted:Qty: 1 on 01/31/2023 by Jabari Salazar MD at [place] [facility] Right: Groin CR BARD : DAVOL 09/26/2023 [id number] / / [id number] documented as of this encounter Advance Directives [...] and were consensually agreed upon. Care Teams Window Glazier Relationship Specialty Start Date End Date Elisa Graham MD 200 [facility] [place] [address] PCP - General Internal Medicine 01/06/23 documented as of this encounter
--- OUTSIDE RECORDS SUMMARY | 2024-11-13 16:56 | External Medical Summary | Summary of Care ---
Author Name Unknown Organization [facility] Address [address] [place] [address] Phone [phone] Care Team Providers Care Vehicle Refinisher Name Role Phone Elisa Graham MD Primary Care Provider [phone] Encounter Details Date Type Department Care Team (Late st Contact Info) Description 08/30/2024 Orders Only Radiology, [facility] [address] [place], [place] [id number] Requisition, External Radiology [address] [place] [address] Encounter for screening mammogram for malignant neoplasm of breast* Allergies No known active allergiesdocumented as of [...] 04/13/2023 Active Additional Information Patient taking differently:2 [place] Each NostrilPRN, Rhinitis, Reported on 10/17/2023 [...] mRNA, LNP-s, No Pre serve, 2-Dose Series (Broadchoice) 09/10/2021,08/12/2021 HEP A - Hepatitis A (Adult > 18 yrs) 04/05/1998, 08/03/1997,08/18/1996 Hepatitis B, 20+ yrs 08/11/1990 Influenza, Whole Virus 09/20/2003,2001,10/07/2001,11/18,07/30/1995 MMR - Measles/Mumps/Rubella Vaccine 01/24/1985 Meningococcal Polysaccharide Vaccine (Menommune) 09/20/2003,04/05/1998,12/28/1992 OPV - Polio Virus Vaccine (Oral) 12/28/1989,10/1984 PPD 04/05/1998 Pneumococcal Conjugate Vacci ne, 20-valent ([id number]) 01/02/2023 Pneumococcal Polysaccharide PPV23 (Pneumovax) 12/15/2021 Rabies [...] AM EST Office Visit General Internal Medicine [facility] 200 [facility] [place] [address] Elisa Graham MD 200 [facility] [place] [address] 11/07/2024 10:15 AM EST Imaging Radiology [address] 132 [facility] [place] [address] Scheduled Orders Name Type Priority Associated Diagnoses Orde r Schedule MAMMOGRAM SCREENING CLAUDIO BILATERAL Medical Imaging Routine Encounter for screening mammogram for malignant neoplasm of breast Expected: 11/07/2024, Expires: 11/13/2024 Scheduled Procedures Name Priority Associated Diagnoses Date/Ti [...] D LEVEL ONCE IN A LIFETIME-USE SMARTSET# 34822 Completed 08/21/2014 Pap Smear Discontinued 09/15/2020, 07/31, [...] this encounter Medical Devices Implanted Type Area Precipitator Supervisor Device Identifier Shelf Expiration Date Model / Serial / Lot Bapul Inc, Embosphere, Microspheres, 300-500 Implanted:Qty: 1 on 11/05/2019 [place]ares [place] [facility] [place]: Head [employer] 11/29/2021 S420GH / [id number] / [id number] Plug Mesh Small Hernia - [id number] Implanted:Qty: 1 on 01/31/2023 by Jabari Salazar MD at OR [facility] Right: Groin CR BARD : DAVOL 09/26/2023 [id number] / / [id number] documented as of this encounter Visit Diagnoses Diagnosis Encounter for screening mammogram for malignant neoplasm of breast- Primary Other screening mammogram documented in this encounter Advance Directives * [...] and were consensually agreed upon. Care Teams Vehicle Refinisher Relationship Specialty Start Date End Date Elisa Graham MD 200 [facility] [address] PCP - General Internal Medicine 01/06/23 documented as of this encounter
--- OUTSIDE RECORDS SUMMARY | 2024-11-13 16:56 | External Medical Summary | Summary of Care ---
Author Name Unknown Organization [facility] Address [address] [place] [address] Phone [phone] Care Team Providers Care Ldr Nurse Name Role Phone Elisa Graham MD Primary Care Provider [phone] Encounter Details Date Type Department Care Team (Late st Contact Info) Description 06/03/2024 Orders Only Outcomes Research Department [address] [place] [address] Penny Bernard CHRA [facility] Research Other*[id number] Allergies No known active allergiesdocumented as of this encounter (statuses as of 06/03/2024) Medications Medication Sig Dispensed Refills Start Date End Date Status Calcium Carb-Cholecalcifer ol 600-800 MG-UNIT Oral Tablet Chewable Take 1 Tab by mouth daily. Active Triamcinolone Acetonide 55 MCG/ACT Nasal Aerosol (Nasacort Allergy 24HR)Indications:O ther insomnia,Other chronic sinusitis,Primary snoring Administer 2 Sprays into each nostril at bedtime. 17 mL 5 04/13/2023 Active Additional Information Patient taking differently:2 [place] Each NostrilPRN, Rhinitis, Reported on 10/17/2023 Biotin [...] as of this encounter (statuses as of 06/03/2024) Active Problems Problem Noted Date Diagnosed Date [...] as of this encounter (statuses as of 06/03/2024) Resolved Problems Problem Noted Date Diagnosed Date [...] as of this encounter (statuses as of 06/03/2024) Immunizations Name Administration Dates Next Due COVID-19 mRNA, LNP-s, No Pre serve, 2-Dose Series (Daily Interactive Networks) 09/10/2021,08/12/2021 HEP A - Hepatitis A (Adult > 18 yrs) 04/05/1998, 08/03/1997,08/18/1996 Hepatitis B, 20+ yrs 08/11/1990 Influenza, Whole Virus 09/20/2003,2001,10/07/2001,11/18,07/30/1995 MMR - Measles/Mumps/Rubella Vaccine 01/24/1985 Meningococcal Polysaccharide Vaccine (Menommune) 09/20/2003,04/05/1998,12/28/1992 OPV - Polio Virus Vaccine (Oral) 12/28/1989,10/1984 PPD 04/05/1998 Pneumococcal Conjugate Vacci ne, 20-valent ([id number]) 01/02/2023 Pneumococcal Polysaccharide PPV23 (Pneumovax) 12/15/2021 Rabies [...] AM EST Office Visit General Internal Medicine [facility] 200 [facility] [place] [address] Elisa Graham MD 200 [facility] [place] [address] 11/07/2024 10:15 AM EST Imaging Radiology [address] 132 [facility] [place] [address] Scheduled Orders Name Type Priority Associated Diagnoses Orde r Schedule MYCODE SUBSEQUENT ADULT Lab Routine MyCode Research Other*[id number] Every 6 Months for 2 Occurrences starting 06/03/2024 until 06/23/2025 Scheduled Procedures Name Priority Associated Diagnoses Date/Ti [...] D LEVEL ONCE IN A LIFETIME-USE SMARTSET# 12532 Completed 08/21/2014 Hepatitis C Screening Completed 09/28/2015 Pap Smear Discontinued 09/15/2020, 07/31, 08/23/2011, Additional history exists Zoster Vaccines Completed 01/01/2021, 08/17/2020 Pneumococcal Vaccine: 65+ Years Completed 01/02/2023, 12/15/2021 RETIRED - COLONOSCOPY-EVERY 5 YRS AGES 18-100 Discontinued 10/02/2023, 10/02/2023, 07/06/2018, Additional history exists HPV (Gardasil) Vaccine Aged Out No lo nger eligible based on patient's age to complete this topic documented as of this encounter Medical Devices Implanted Type Area Dermatologist Managing Partner Device Identifier Shelf Expiration Date Model / Serial / Lot Ascade Inc, Embosphere, Microspheres, 300-500 Implanted:Qty: 1 on 11/05/2019 by [place] [facility] [place]: Head [employer]yre[employer] INC 11/29/2021 S420GH / [id number] / [id number] Plug Mesh Small Hernia - [id number] Implanted:Qty: 1 on 01/31/2023 by Jabari Salazar MD at OR [facility] Right: Groin CR BARD : DAVOL 09/26/2023 [id number] / / [id number] documented as of this encounter Visit Diagnoses Diagnosis MyCode Research Other*[id number] documented in this encounter Advance Directives * [...] and were consensually agreed upon. Care Teams Ldr Nurse Relationship Specialty Start Date End Date Elisa Graham MD 200 [place] [address] PCP - General Internal Medicine 01/06/23 documented as of this encounter
--- OUTSIDE RECORDS SUMMARY | 2024-11-13 16:56 | External Medical Summary | Summary of Care ---
Author Name Unknown Organization [facility] Address [address] [address] Phone [phone] Care Team Providers Care [employer] Or Pasture Farm Worker Name Role Phone Elisa Graham MD Primary Care Provider [phone] Reason for Visit * Reason Onset Date Comments Advice 08/29/2024 Encounter Details Date Type Department Care Team (Late st Contact Info) Description 08/29/2024 Telephone General Internal Medicine [facility] [address] [facility] [place] [address] Elisa Graham MD [address] [place] [address] Advice Allergies No known active allergiesdocumented as [...] 04/13/2023 Active Additional Information Patient taking differently:2 [place] Each NostrilPRN, Rhinitis, Reported on 10/17/2023 Biotin [...] mRNA, LNP-s, No Pre serve, 2-Dose Series ([employer]) 09/10/2021,08/12/2021 DT - Diptheria/Tetanus (PEDS) 03/31/2003 HEP A - Hepatitis A (Adult > 18 yrs) 04/05/1998, 08/03/1997,08/18/1996 Hepatitis B, 20+ yrs 08/11/1990 Influenza, Whole Virus 09/20/2003,2001,10/07/2001,11/18,07/30/1995 MMR - Measles/Mumps/Rubella Vaccine 01/24/1985 Meningococcal Polysaccharide Vaccine ([employer]) 09/20/2003,04/05/1998,12/28/1992 OPV - Polio Virus Vaccine (Oral) 12/28/1989,0310/1984 PPD 04/05/1998 Pneumococcal Conjugate Vacci ne, 20-valent ([id number]) 01/02/2023 Pneumococcal Polysaccharide PPV23 (Pneumovax) 12/15/2021 Rabies [...] any symptoms. * Telephone Encounter - Babs Colmenares CPhT - 08/29/2024 2:51 PM EDT Patient called to c/o of tick bite. Symptoms include: Tick bite occurred on 08/25/24 Tick is not still attached. Has the tick been completely removed: Yes Patient was bitten while riding horse in [facility]. Tick thought to be attached [...] AM EST Office Visit General Internal Medicine [facility] [address] [facility] [place] [address] Elisa Graham MD [address] [facility] [place] [place] [address] 11/07/2024 10:15 AM EST Imaging Radiology [address] [facility] [place] [address] Scheduled Procedures Name Priority Associated Diagnoses Date/Ti [...] D LEVEL ONCE IN A LIFETIME-USE SMARTSET# [id number] Completed 08/21/2014 Pap Smear Discontinued 09/15/2020, 07/31, [...] this encounter Medical Devices Implanted Type Area Hand Cell Tuber Device Identifier Shelf Expiration Date Model / Serial / Lot [employer], [employer]osphere, Microspheres, [id number] Implanted:Qty: 1 on 11/05/2019 by Israel Alvares MD at [place] [facility] N/A: Head [employer] 11/29/2021 [id number] / [id number] / [id number] Plug Mesh Small Hernia - [id number] Implanted:Qty: 1 on 01/31/2023 by Jabari Salazar MD at [facility] Right: Groin CR BARD : DAVOL 09/26/2023 [id number] / / [id number] documented as of this encounter Advance Directives [...] and were consensually agreed upon. Care Teams [employer] Or Pasture Farm Worker Relationship Specialty Start Date End Date Elisa Graham MD [address] [place] [address] PCP - General Internal Medicine 01/06/23 documented as of this encounter
[2024-11-13] MEDS ORDERED: ACETAMINOPHEN 325 MG TAB PO PRN (17:45)
[2024-11-13] MEDS ORDERED: ONDANSETRON INJ 2 MG/ML 2 ML VIAL IV PRN (17:45)
[2024-11-13] MEDS: ENOXAPARIN INJ 40 MG/0.4 ML SYR SQ SCH (18:12)
[2024-11-13] MEDS: ALBUT/IPRATROP 3MG/0.5MG NEB 3 ML VIAL NEB SCH (19:40)
[2024-11-14 06:35] LABS: Hematocrit (blood only) 33.2 % (37.0-47.0); Hemoglobin 10.9 g/dl (12.0-16.0); Mean Corpuscular Hemoglobin 29.7 pg (25.0-34.0); Mean Corpuscular Hgb Conc 32.8 g/dL (32.0-36.0); Mean Corpuscular Volume 90.5 fL (80.0-100.0); Platelet Count 113 K/uL (130-400); RDW Coefficient of Variation 14.5 % (11.5-14.5); RDW Standard Deviation 48.5 fL (36.4-46.3); Red Blood Count 3.67 M/uL (4.20-5.40); White Blood Count 6.61 K/ul (4.8-10.8)
[2024-11-14 07:05] LABS: Calcium 7.8 mg/dl (8.6-10.3); Magnesium 1.9 mg/dl (1.7-2.4); Potassium 3.9 mmol/L (3.5-5.1)
[2024-11-14 07:11] LABS: BUN Creatinine Ratio 28.8 (10-20); Creatinine Clr Calc Pharmacy 56.2 ml/min
--- NOTE | 2024-11-14 08:09 | Electrocardiogram Report ---
Test Reason : Blood Pressure : */* mmHG Vent. Rate : 84 BPM Atrial Rate : 84 BPM P-R Int : 122 ms QRS Dur : 72 ms QT Int : 348 ms P-R-T Axes : 62 56 61 degrees QTcB Int : 411 ms Normal sinus rhythm Biatrial enlargement Nonspecific ST and T wave abnormality Abnormal ECG When compared with ECG of 05-Jan-2024 10:07, Vent. rate has increased by [address] now depressed in Inferolateral leads Confirmed by Robbie Chong ([id number]) on 11/14/2024 8:08:55 AM Referred By: REFERRED SELF Confirmed By: Robbie Chong
[2024-11-14] MEDS: SERTRALINE HCL 50 MG TABLET PO SCH (08:22)
[2024-11-14] MEDS: DOXYCYCLINE HYCLATE 100 MG CAP PO SCH (08:22)
[2024-11-14] MEDS: guaiFENesin 600 MG TABCR PO SCH (08:22)
[2024-11-14] MEDS: POLYETHYLENE (MIRALAX) 17 GM PACK PO SCH (08:28)
[2024-11-14] MEDS ORDERED: BENZONATATE 100 MG CAPSULE PO PRN (10:27)
--- NOTE | 2024-11-14 11:34 | Hospitalist Progress Note ---
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 In ER T: 38.8 C, P: 120, R: 20, BP: 113/60, reported to be hypoxic during ER course, on 2L O2 via NC with sat 95%. No leukocytosis, lactate WNL, Procalcitonin: 10.7. +Human metapneumovirus on respiratory BioFire panel CXR: Bilateral lower lung predominant airspace opacities which may represent atelectasis, pneumonia, and/or aspiration. Possible secondary bacterial infection vs aspiration pneumonia Continue ceftriaxone + doxycycline Metronidazole added Continue antitussives Start loratadine Incentive spirometry and flutter Wean oxygen as tolerated Stop IVF and advance diet (2) Hypomagnesemia: Plan: On admission, magnesium was 1.5 Was repleted Mg is 1.9 today Hb is 10.9 today (was 14 on admission), possibly dilutional No bleeding Monitor DVT Prophylaxis Lovenox SQ Updated family at bedside I spent a total of 55 minutes reviewing notes, outpatient records, labs, medication, coordinating, documenting and providing care for this patient excluding time spent in the performance of separately billed services. Admission and Anticipated Discharge Date Admission Date: November 13, 2024 Subjective Patient seen and examined Reports feeling better today Still coughing, mostly nonproductive Mild SOB Reports sinus congestion No nausea or vomiting today No dizziness Physical Exam Constitutional: + well hydrated; no acute distress Eyes: PERRL, conjunctivae normal, anicteric sclerae ENMT: external ear and nose normal, oropharynx normal Respiratory: On nasal cannula, not in respiratory distress, diminished breath sounds Cardiovascular: Rate/Rhythm: regular rate and regular rhythm Gastrointestinal (Abdomen): normal bowel sounds, soft, nontender, no hepatosplenomegaly Musculoskeletal: No pedal edema Neurologic: PERRL, EOMI, accommodation nl, no face palsy, no dysarthria Psychiatric: A+Ox3, euthymic affect Results & Data Results & Data Vital Signs (Past 12 Hours) Vital Signs Temp Pulse Resp BP Pulse Ox O2 Del Method O2 Flow Rate 11/14/24 08:30 Nasal Cannula 11/14/24 08:02 37.1 C 75 18 104/66 94 Nasal Cannula 2 11/14/24 07:14 80 18 95 Nasal Cannula 2 Laboratory Results Abnormal lab results 11/13/24 11/13/24 11/14/24 Range/Units 11:35 11:54 05:41 RBC 3.67 L (4.20-5.40) M/uL Hgb 10.9 L D (12.0-16.0) g/dl Hct 33.2 L (37.0-47.0) % RDW Std Deviation 48.5 H (36.4-46.3) fL Plt Count 113 L (130-400) K/uL Lymph # (Auto) 0.80 L (1.20-3.40) K/uL Sodium 135 L (136-145) mmol/L BUN 27 H (6-23) mg/dl BUN/Creatinine Ratio 32.1 H 28.8 H (10-20) Glucose 103 H 101 H (70-99(Fasting)) mg/dl Calcium 7.8 L (8.6-10.3) mg/dl Magnesium 1.5 L (1.7-2.4) mg/dl Procalcitonin 10.70 H (0-0.5) ng/ml Human Metapneumovir PCR DETECTED A (NotDetected)
[2024-11-14] MEDS: LORATADINE 10 MG TAB PO SCH (12:11)
[2024-11-14] MEDS: cefTRIAXone SODIUM 2,000 MG/50 ML BAG IV SCH (13:32)
[2024-11-14] MEDS: metroNIDAZOLE 500 MG TAB PO SCH (13:33)
[2024-11-14] MEDS: MELATONIN 3 MG TAB PO PRN (22:37)
[2024-11-15 07:42] LABS: Hematocrit (blood only) 31.2 % (37.0-47.0); Hemoglobin 10.4 g/dl (12.0-16.0); Mean Corpuscular Hemoglobin 30.2 pg (25.0-34.0); Mean Corpuscular Hgb Conc 33.3 g/dL (32.0-36.0); Mean Corpuscular Volume 90.7 fL (80.0-100.0); Mean Platelet Volume 10.4 fL (9.4-12.4); Platelet Count 111 K/uL (130-400); RDW Coefficient of Variation 14.3 % (11.5-14.5); RDW Standard Deviation 47.6 fL (36.4-46.3); Red Blood Count 3.44 M/uL (4.20-5.40); White Blood Count 5.87 K/ul (4.8-10.8)
[2024-11-15 07:51] LABS: BUN Creatinine Ratio 26.6 (10-20); Calcium 8.3 mg/dl (8.6-10.3); Creatinine Clr Calc Pharmacy 70.3 ml/min; Magnesium 1.5 mg/dl (1.7-2.4); Phosphorus 1.6 mg/dl (2.5-4.9); Potassium 3.8 mmol/L (3.5-5.1)
[2024-11-15] MEDS ORDERED: POTASSIUM PHOS 3 MMOL/1 ML INFUSION IV STA (08:09)
[2024-11-15] MEDS: MAGNESIUM SULFATE / D5W 1 GM/100 ML BAG IV ONE (09:47)
[2024-11-15 10:46] VITALS: O2SAT 95
[2024-11-15] MEDS: POT PHOSPHATE MONOBASIC W/ SOD TAB PO SCH (12:32)
--- NOTE | 2024-11-15 12:49 | Discharge Summary ---
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 C/O congestion, cough, SOB, myalgias, generalized weakness. States cough productive yellow. Feeling SOB today. Had nausea and vomiting past 2 days. States feels wiped out. Not eating or drinking. States couple of days ago some discomfort to right lower abdomen which has decreased and reports is improved today. Last BM several days ago, states usually has BM every couple of days. Granddaughter had URI symptoms prior to her onset of symptoms. Did not take temperature at home and was unaware of fever. Denies chills, diaphoresis, hematemesis, melena, hematochezia, DEMARCO, dizziness, syncope, vision changes, neck pain, CP, palpitations, hemoptysis, extremity edema, rashes, urinary symptoms. Admission Exam Per Admitting Provider General: +ill appearing, WDWN Head: normocephalic, atraumatic Eyes: conjunctiva non-injected, anicteric ENT: normal inspection external ears, nose, mucous membranes dry Neck: supple, trachea midline, non-tender Lungs: no respiratory distress on 2L via NC, mild rhonchi CV: RRR, no murmur, no pretibial edema Abd: normal BS, soft, non-tender to palpation Ext: no cyanosis, no calf tenderness Neuro: +tired but A&O x 3, no focal deficits noted, normal affect Skin: warm, dry Principal Diagnosis Acute respiratory failure with hypoxia Pneumonia Human metapneumovirus infection Discharge Exam Constitutional + well hydrated; no acute distress Eyes PERRL, conjunctivae normal, anicteric sclerae ENMT external ear and nose normal, oropharynx normal Respiratory Not in resp distress. Improved air entry. 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 In ER T: 38.8 C, P: 120, R: 20, BP: 113/60, reported to be hypoxic during ER course, on 2L O2 via NC with sat 95%. No leukocytosis, lactate WNL, Procalcitonin: 10.7. +Human metapneumovirus on respiratory BioFire panel CXR: Bilateral lower lung predominant airspace opacities which may represent atelectasis, pneumonia, and/or aspiration. Patient did meet SIRS criteria on admission. Hence, possible Sepsis Possible secondary bacterial infection vs aspiration pneumonia Was managed with IV antibiotics Patient's symptoms improved She was weaned off oxygen Patient eager to go home today. Discharged on Augmentin and doxycycline to complete antibiotic therapy Total Time Total Time Spent Total Time Spent (In Minutes): 40 Total Time Includes: Examination of the Patient, Discharge Planning and Medication Reconciliation Discharge Plan Discharge Items Patient Disposition: Home - Self-Care Reason For Visit: PNA Discharge Diagnosis: Acute respiratory failure with hypoxia Pneumonia Human metapneumovirus infection Activity: Resume your previous activity Non-emergency contact: Primary Care Provider Call non-emergency contact if: you have any medication questions and your symptoms worsen Follow-up/Referrals: Elisa Graham MD [Primary Care Provider] - 11/21/24 10:20 am (Date & Time 11/21/2024 10:20 AM Provider: Elisa Graham MD General Internal Medicine [facility] ) Diet: Regular Addtl Attending Provider Instructions: Mrs Dwyer You were hospitalized and managed for the above listed diagnoses You are being discharged on 3 more days of antibiotics Please ensure follow up with your Primary Doctor It was a pleasure taking care of you Pending Studies at Discharge: No Stand-Alone Forms: My [employer], Smoking Cessation Medications and DC Order Prescriptions: New doxycycline hyclate 100 mg Capsule 100 mg PO BID 3 Days Qty: 6 0RF benzonatate 100 mg Capsule 100 mg PO TID PRN (Reason: cough) Qty: 14 0RF loratadine [Wal-itin] 10 mg Tablet 10 mg PO QAM 5 Days Qty: 5 0RF guaifenesin [Mucinex] 600 mg Tablet Extended Release 12hr 1,200 mg PO Q12 3 Days Qty: 12 0RF amoxicillin-pot clavulanate 875-125 mg tablet 1 tab PO BID 3 Days Qty: 6 0RF Continued calcium carbonate [Calcium 600] 600 mg calcium (1,500 mg) Tablet 750 mg PO DAILY biotin 5 mg Tablet 5 mg PO UD Rx Instructions: 5 mg po daily. pt isnt sure dose cholecalciferol (vitamin D3) [Vitamin D3] 25 mcg (1,000 unit) Tablet 25 mcg PO DAILY sertraline 50 mg Tablet 50 mg PO DAILY Discharge Orders: Discharge Order (Routine); Ordered 11/15/24 Ordered By: Uzma Macias Admission Data Admit Date/Time: 11/13/24 15:18 Attending Provider: Uzma Macias I. Admit Provider: Gabriel Castillo Primary Care Provider: Elisa Graham Other Providers: Gabriel Castillo Other Interventions: Discharge Summary Assessment (RN) Last Done: 11/15/24 13:55
[2024-11-15 13:34] VITALS: BP 123/75; PULSE 77; RESP 20; TEMP 98.8
[2024-11-15] MEDS: AMOXICILLIN/CLAVULANATE 875 MG TAB PO ONE (13:36)
[2024-11-15] MEDS: POT PHOSPHATE MONOBASIC W/ SOD TAB PO ONE (13:37)
== END 2024-11-15 15:19 | disposition home or self-care (01) | DRG 871 ==
LOC: ED 10:35 → 3E 15:18 → SUATTDRO 15:18 → 3E 17:09
DX: J12.3 Human metapneumovirus pneumonia; J15.9 Unspecified bacterial pneumonia; E83.42 Hypomagnesemia; J96.01 Acute respiratory failure with hypoxia; A41.9 Sepsis, unspecified organism; E86.0 Dehydration